=== PATIENT | female | born 1945 | race Caucasian/White ===

== ENCOUNTER → 2017-02-06 | Day surgery (SDC) | payer MEDICARE ==
[~2017-02-06] MED LIST: ALEN70TA5 PO; DONE5TAB7 PO; FEXO180T16 PO; FLUO20CA8 PO; IV RINGERS,LACTATED 1000ML 1,000 ML IV SCH; LIDOCAINE 2% PF Vial for OR 5 ML VIAL. ONE; OLAN10TA9 PO; OMEP20TA8 PO; OXYB10TA PO; PROPOFOL 20 ML IV ONE; SIMV20TA3 PO
[2017-02-06 17:37] VITALS: BP 150/79
--- NOTE | 2017-02-07 08:38 | HP ---
ADMIT DATE: 02/06/2017 Updated history and physical REFERRING PHYSICIAN: Dr. Mani Funk. HISTORY OF PRESENT ILLNESS: A 71-year-old female whose past medical history is significant for duodenal polyps, nephrolithiasis, gastric reflux disease, previous tonsillectomy, adenoidectomy, is seen with worsening abdominal pain. The patient states she has undergone a number of testing without significant improvement with medical therapy. She presently takes donepezil 2.5 mg daily. She has been on medicines like Nexium without improvement. Denies dysphagia or odynophagia. The patient has lost approximately 30 pounds ____ activity, decreased bowel movements and increased discomfort. With continued symptoms, she requests additional evaluation. PAST MEDICAL HISTORY: Nephrolithiasis, gastroesophageal reflux disease, status post tonsillectomy, history of hyperlipidemia, osteoporosis. PAST SURGICAL HISTORY: Per records. REVIEW OF SYSTEMS: Per records. FAMILY AND SOCIAL HISTORY: She does not drink or smoke at this time. FAMILY HISTORY: Noncontributory. PHYSICAL EXAMINATION: GENERAL: Reveals a well-nourished, well-developed female who is alert, cooperative, in no acute distress. VITAL SIGNS: Pulse 70, respirations 18. HEENT: Reveals normocephalic, atraumatic head. Pupils and extraocular movements are not tested. Sclerae anicteric. NECK: Supple. LUNGS: Clear. CARDIOVASCULAR: Reveals an S1, S2 without S3, S4 or appreciable murmur. ABDOMEN: Soft abdomen, normal bowel sounds, without appreciable hepatosplenomegaly. EXTREMITIES: Reveals no cyanosis, clubbing or edema. IMPRESSION: Abdominal pain with history of duodenal ____, the etiology is to be determined. Differential includes gallbladder disease, gastroparesis, peptic ulcer disease, malignancy, mesenteric ischemia, partial small-bowel obstruction; therefore, recommend the patient proceed with upper endoscopy to further assess this unrevealing. A CT scan of the abdomen and pelvis would be pursued. I thank Dr. Mani Funk for allowing us to consult and participate in this patient's care. HAILEY BARNARD MD DR: LYNDA/cuong JOB#: [id number] / [id number]
== END | disposition home or self-care (01) ==
LOC: ENDOS 16:28
PROVIDERS: ATTEND Internal Medicine Gastroenterology
DX: K29.50 Unspecified chronic gastritis without bleeding (principal); Z86.69 Personal history of other diseases of the nervous system and sense organs; Z86.73 Personal history of transient ischemic attack (TIA), and cerebral infarction without residual deficits; E78.00 Pure hypercholesterolemia, unspecified; I10 Essential (primary) hypertension; K21.9 Gastro-esophageal reflux disease without esophagitis; M19.90 Unspecified osteoarthritis, unspecified site; F41.9 Anxiety disorder, unspecified; F32.9 Major depressive disorder, single episode, unspecified; Z87.39 Personal history of other diseases of the musculoskeletal system and connective tissue; Z86.39 Personal history of other endocrine, nutritional and metabolic disease
CPT/HCPCS: 43235; J2704

== ENCOUNTER 2018-06-19 14:53 | Inpatient (IN) | payer MEDICARE ==
[~2018-06-19] VITALS: Ht 167.6 cm; Wt 50.8 kg
[~2018-06-19 14:53] MED LIST changes: -IV RINGERS,LACTATED 1000ML 1,000 ML IV SCH; -LIDOCAINE 2% PF Vial for OR 5 ML VIAL. ONE; -PROPOFOL 20 ML IV ONE
[2018-06-19 18:00] VITALS: BP 115/60
[2018-06-19] MEDS ORDERED: ONDANSETRON PF 4 MG/2 ML VIAL. IV PRN (18:15)
[2018-06-19] MEDS ORDERED: 0.9 % SODIUM CHLORIDE 10 ML DISP.SYRIN. IV PRN (18:15)
[2018-06-19] MEDS ORDERED: ALPRAZolam 0.25 MG TABLET PO ONE (18:30)
[2018-06-19] MEDS ORDERED: HEPARIN for IV BOLUS 10,000 UNIT/10 ML VIAL. IV ONE ×2 (18:30)
[2018-06-19] MEDS ORDERED: ONDANSETRON ODT 4 MG TAB.RAPDIS. PO PRN (18:30)
[2018-06-19] MEDS ORDERED: ACETAMINOPHEN 500 MG TABLET PO PRN (18:30)
[2018-06-19] MEDS ORDERED: guaiFENesin DM 200MG/20MG 10 ML SYRUP PO PRN (18:30)
[2018-06-19] MEDS ORDERED: hydrOXYzine 10 MG TABLET PO PRN (18:30)
[2018-06-19] MEDS ORDERED: HEPARIN for IV BOLUS 10,000 UNIT/10 ML VIAL. IV PRN ×4 (18:30)
[2018-06-19] MEDS ORDERED: HEPARIN 25,000UTS/500ML PREMIX 500 ML IV PRN (18:30)
[2018-06-19 18:33] LABS: BASO % 0 % (0-3); EOS % 0 % (0-3); HEMATOCRIT 35.7 % (36.0-47.0); HEMOGLOBIN 12.2 g/dL (12.0-15.5); LYMPH # 0.5 x10^3/uL (1.0-4.8); LYMPH % 4 % (24-48); MEAN CORPUSCULAR HEMOGLOBIN 31 pg (25-35); MEAN CORPUSCULAR HGB CONC 34 g/dL (31-37); MEAN CORPUSCULAR VOLUME 90 fL (79-100); MONO # 0.6 x10^3/uL (0.0-1.1); MONO % 4 % (0-9); NEUT # 13.6 x10^3uL (1.8-7.7); NEUT % 92 % (31-73); PLATELET COUNT 202 x10^3/uL (140-400); RED BLOOD COUNT 3.99 x10^6/uL (3.50-5.40); RED CELL DISTRIBUTION WIDTH 13.5 % (11.5-14.5); WHITE BLOOD COUNT 14.7 x10^3/uL (4.0-11.0)
--- NOTE | 2018-06-19 18:35 | PDOC1 ---
History and Physical Date of Admission Date of Admission DATE: 06/19/18 TIME: 18:26 Identification/Chief Complaint Chief Complaint SOA today Source Source: Caregiver, Chart review History of Present Illness History of Present Illness Very poor historian as patient is currently tachypneic, Dtr. is a very good historian and provides me with history along with ER [place]. Patient's transfer from [place], 72-year-old female only takes 3 medications at home namely Aricept, hydroxyzine, sertraline, and [id number] multivitamins, acute onset SOA today could not breathe to the point that she cannot speak. Daughter then relays to me maybe a fall today - she twisted her rt ankle and is now painful, swollen. Has not gotten out or had to be helped up since then. Went to the emergency room [facility]. Lactate 2.9, WBC 15, ABG shows respiratory alkalosis with a pH 7.54, CO2 24 and O2 93. Tachypneic. PE protocol CT done showed a saddle PE. D-dimer was elevated 30. Transferred here. Did not receive a bolus heparin drip and started on PE protocol heparin. Seen with family at bedside. Still tachypneic but able to maintain airway. Family verifies a full code. Will add venous Dopplers, bolus heparin, check fecal occult, echocardiogram. I also did order an ankle x-ray - see if any fxs/ which might have precipitated all of these. SHe denies history of previous blood clots, no family history of clots. No previous surgeries or long trip rides. She is ambulatory at home, no assistive device. Not as active as she was 5 years ago but basically not bedbound. No recent surgeries. Her longest car ride maybe would be 30 minutes long Past Medical History CENTRAL NERVOUS SYSTEM: Dementia Psych: Depression Past Surgical History Past Surgical History: No pertinent history Family History Family History: No Significant Social History Smoke: No ALCOHOL: none Drugs: None Current Medications Current Medications Current Medications Ondansetron HCl (Zofran) 4 mg PRN Q6HRS PRN IV NAUSEA/VOMITING; Start at 18:15 Sodium Chloride (Normal Saline Flush) 3 ml QSHIFT PRN IV AFTER MEDS AND BLOOD DRAWS; Start 06/19/18 at 18:15 Active Scripts Active Reported Donepezil Hcl 5 Mg Tablet 2.5 Mg PO DAILY Allergies Allergies: Coded Allergies: No Known Drug Allergies (Unverified , 02/06/17) ROS Review of System limited as she is tachypneic but right ankle hurts Physical Exam General: Alert, Cooperative, mild distress, Other (tachypneic-breathing via mouth) HEENT: Atraumatic, PERRLA Lungs: Normal air movement, Other (symmettrical chest expansion, no crackles, equal air entry) Heart: S1S2, no thrills, no rubs, no gallops, no murmurs, other (sinus tachycardia) Breasts: Normal, Rt breast nml w/o mass, Lt breast nml w/o mass, Nipples normal Abdomen: Normal bowel sounds, Soft, No tenderness, No hepatosplenomegaly, No masses Rectal Exam: not examined PELVIC: Nml ext genitalia Extremities: No clubbing, No cyanosis, Normal pulses, Other (swelling and tenderness on the right lateral malleoli, no Homans sign in the calves, bilateral) Skin: No rashes, No breakdown, No significant lesion Neuro: Normal gait, Normal speech, Strength at 5/5 X4 ext, Normal tone, Sensation intact, Cranial nerves 3-12 NL, Reflexes 2+ Psych/Mental Status: Mental status NL, Mood NL VTE Prophylaxis Ordered VTE Prophylaxis Devices: Yes VTE Pharmacological Prophylaxi: Yes Assessment/Plan Assessment/Plan Saddle PE-acute onset, first episode Fall today at home Right lateral malleolus/ankle swelling and pain secondary to fall Elevated lactate Leukocytosis-SIRS with no organ dysfunction Respiratory alkalosis Hypoxic respiratory failure secondary to above above-protecting airway Elderly/Geriatric Dementia on Aricept Elevated Troponin and the background of saddle PE-troponin 0.8 Full code PLAN: ICU bed Bolus heparin then gtt I did order hypercoag panel since unprovoked FOBT check Pulmo consult DuoNeb's Recheck labs tomorrow especially lactate, trop etc - make sure not trending up Check echo Ultrasound venous Dopplers legs Check ankle x-ray for any fractures given the fall PT OT when more respiratory stable DuoNeb's, other supportive meds Full code verified with fam Ok to cont home meds (3 only) Ok for low dose xanax I would just do GI soft diet for now Seen in ICU Dw health promotion officer and indy, CC 31 WILLIAM PEREZ MD Jun 19, 2018 18:35
[2018-06-19 18:55] LABS: CALCIUM 9.2 mg/dL (8.5-10.1); CREATININE 0.9 mg/dL (0.6-1.0); GFR 61.2; MAGNESIUM 2.1 mg/dL (1.8-2.4); POTASSIUM 3.8 mmol/L (3.5-5.1)
[2018-06-19 19:00] VITALS: BP 148/87
[2018-06-19 19:06] LABS: % BANDS 3 % (0-9); % LYMPHS 4 % (24-48); % MONOS 4 % (0-10); % SEGS 89 % (35-66); PLT ESTIMATE ADEQUATE (ADEQUATE); TOXIC GRANULATION SLIGHT; TOXIC VACUOLATION SLIGHT
[2018-06-19 20:00] VITALS: BP 136/68
[2018-06-19] MEDS: IPRATRPIUM/ALBUTEROL 0.5/2.5MG 3 ML NEBU. NEB SCH (20:20)
[2018-06-19] MEDS: DONEPEZIL HCL 5 MG TABLET. PO SCH (20:35)
[2018-06-19 21:00] VITALS: BP 140/84
[2018-06-19] MEDS ORDERED: SERTRALINE 50 MG TABLET. PO SCH (21:00)
[2018-06-19 22:00] VITALS: BP 140/87
[2018-06-19] MEDS: IV NORMAL SALINE 1000ML BAG 1,000 ML IV SCH (22:36)
[2018-06-19 23:00] VITALS: BP 126/83
[2018-06-19 23:17] LABS: BILIRUBIN,URINE NEGATIVE (NEG); CLARITY,URINE CLEAR; COLOR,URINE YELLOW; NITRITE,URINE NEGATIVE (NEG); PH,URINE 6.5; PROTEIN,URINE NEGATIVE (NEG-TRACE); UROBILINOGEN,URINE 0.2 mg/dL (0.2 mg/dL)
--- NOTE | 2018-06-19 23:20 | RAD ---
Ultrasound venous Doppler INDICATION:soa, pe, recent fall< TECHNIQUE: Grayscale, color Doppler and spectral waveform ultrasound images of the bilateral lower extremities deep veins obtained. COMPARISON: None FINDINGS: The right CFV, SFV are compressible and demonstrates evidence of blood flow. Hypoechoic filling defect is seen in the right popliteal vein which is distended without evidence of blood flow. There is a 6.5 x 3.5 x 1.4 similar hypoechoic oval-shaped lesion in the popliteal fossa without internal vascularity most likely a Ruano's cyst. The right calf veins are not properly visualized. The left CFV, SFV, popliteal vein are compressible and demonstrates evidence of blood flow. The calf veins demonstrate no evidence of blood flow with hypoechoic filling defect. IMPRESSION: 1. Right popliteal vein DVT and left calf vein DVT. Critical findings were identified on 06/19/2018 10:15 PM, read back and verified with Nurse Sherman on 06/19/2018 11:[address] Aden Gutierres DO. Electronically signed by: Aden Gutierres DO (06/19/2018 11:18 PM) [facility]
[2018-06-19 23:25] LABS: SQUAMOUS EPITHELIAL CELL,UR MOD /LPF
[2018-06-19 23:26] LABS: BACTERIA,URINE 0 /HPF (0-FEW); RBC,URINE >40 /HPF (0-2); WBC,URINE OCC /HPF (0-4)
[2018-06-19] MEDS ORDERED: HYDR10SY16 PO (23:58)
[2018-06-20] VITALS (25 sets, daily range): BP systolic 99–148; BP diastolic 58–82
[2018-06-20 00:57] LABS: CALCIUM 9.1 mg/dL (8.5-10.1); CREATININE 0.9 mg/dL (0.6-1.0); GFR 61.2; POTASSIUM 3.7 mmol/L (3.5-5.1)
[2018-06-20 01:08] LABS: BASO % 0 % (0-3); EOS % 0 % (0-3); HEMATOCRIT 32.7 % (36.0-47.0); HEMOGLOBIN 11.2 g/dL (12.0-15.5); LYMPH # 0.8 x10^3/uL (1.0-4.8); LYMPH % 6 % (24-48); MEAN CORPUSCULAR HEMOGLOBIN 31 pg (25-35); MEAN CORPUSCULAR HGB CONC 34 g/dL (31-37); MEAN CORPUSCULAR VOLUME 89 fL (79-100); MONO # 0.8 x10^3/uL (0.0-1.1); MONO % 6 % (0-9); NEUT % 87 % (31-73); PLATELET COUNT 182 x10^3/uL (140-400); RED BLOOD COUNT 3.66 x10^6/uL (3.50-5.40); RED CELL DISTRIBUTION WIDTH 13.5 % (11.5-14.5); WHITE BLOOD COUNT 12.7 x10^3/uL (4.0-11.0)
[2018-06-20] MEDS: IPRATRPIUM/ALBUTEROL 0.5/2.5MG 3 ML NEBU. NEB SCH ×4 (07:48→19:58)
--- NOTE | 2018-06-20 08:17 | RAD ---
Left ankle, 3 views, 06/19/2018: HISTORY: Fall, pain No fracture or dislocation is identified. Arterial calcifications are present. No significant soft tissue swelling is evident. IMPRESSION: No acute bony abnormality is detected. Electronically signed by: Kevin Garrido MD (06/20/2018 8:14 AM) [facility]
[2018-06-20] MEDS ORDERED: SERT100T PO (08:53)
[2018-06-20] MEDS ORDERED: SERT50TA PO (08:53)
[2018-06-20] MEDS ORDERED: DONE23TA3 PO (08:53)
[2018-06-20] MEDS ORDERED: MULT1TAB6 PO (08:53)
[2018-06-20] MEDS ORDERED: HYDR10SY16 PO (08:53)
[2018-06-20] MEDS: MULTIVITAMIN with MINERAL TABLET. PO SCH (09:00)
[2018-06-20] MEDS: ANTI-COAG MONITOR BY PHARMACY. MC PRN (09:15)
[2018-06-20] MEDS: IV NORMAL SALINE 1000ML BAG 1,000 ML IV SCH ×2 (09:15→22:15)
--- NOTE | 2018-06-20 09:43 | PDOC2 ---
HYACINTH MCCORD SOFTWARE RELEASE MANAGER 06/20/18 0943: CARDIAC CONSULT DATE OF CONSULT Date of Consult DATE: 06/20/18 TIME: 09:18 REASON FOR CONSULT Reason for Consult: Elevated troponin PE REFERRING PHYSICIAN Referring Physician: Sergio SOURCE Source: Caregiver (daughter/spouse), Chart review, Patient HISTORY OF PRESENT ILLNESS HISTORY OF PRESENT ILLNESS This is a pleasant 72 yo female admitted for syncope and seizure. She was initially admitted in [place] and transferred to [facility] for further treatment as she was found to have PE. Baseline per daughter she has been moving around in the house without ambulatory device and has been doing well. No complains of CP or SOA. She has not any , hx of VTE, CAD. No recent falls or injury till yesterday. No recent long distance travel but she has been having loose stools particularly in the morning. Reported that she has been hydrating but could not ascertain amount. No recent vomiting till yesterday prior to the event. She only takes SSRI and med for her dementia. She fell yesterday but no injury and was noted that she became unresponsive and was gasping for air and noted with jaw clenching for about 30 sec. No hx of seizures in the past. she has not been complaing of any leg pain and no significant swelling. PAST MEDICAL HISTORY Cardiovascular: Hyperlipidemia, Other (?neurocardiogenic) CENTRAL NERVOUS SYSTEM: Dementia, TIA, Other (akinesia) GI: GERD Heme/Onc: Anemia NOS Psych: Anxiety, Depression Musculoskeletal: Osteoarthritis Renal/: Urinary Incontinence Endocrine: Osteoporosis PAST SURGICAL HISTORY Past Surgical History: Other (lower back and neck surgery) SOCIAL HISTORY Smoke: Quit (remote) ALCOHOL: none Drugs: None Lives: with Family CURRENT MEDICATIONS CURRENT MEDICATIONS Current Medications Medications (Trade) Dose Ordered Sig/Bin Route PRN Reason Start Time Stop Time Status Last Admin Dose Admin Albuterol/ Ipratropium (Duoneb) 3 ml RTQID NEB 06/19/18 20:00 06/20/18 07:48 Donepezil HCl (Aricept) 5 mg QHS PO 06/19/18 21:00 06/19/18 20:35 Sertraline HCl (Zoloft) 25 mg QHS PO 06/19/18 21:00 06/19/18 20:35 Alprazolam (Xanax) 0.25 mg 1X ONCE PO 06/19/18 18:30 06/19/18 18:34 DC 06/19/18 20:27 Heparin Sodium (Porcine) (Heparin Sodium) 4,160 unit 1X ONCE IV 06/19/18 18:30 06/19/18 18:34 DC 06/19/18 20:27 Sodium Chloride 1,000 ml @ 80 mls/hr [id number] IV 06/19/18 20:45 06/19/18 22:36 Info (Anti-Coagulation Monitoring By Pharmacy) 1 each PRN DAILY PRN MC SEE COMMENTS 06/20/18 09:00 06/20/18 09:15 ALLERGIES ALLERGIES: Coded Allergies: No Known Drug Allergies (Unverified , 02/06/17) ROS Review of System unreliable, dementia PHYSICAL EXAM General: Alert, Cooperative, No acute distress HEENT: Atraumatic, Mucous membr. moist/pink Lungs: Clear to auscultation, Other (diminished bases) Heart: Regular rate (SR without ectopies), Other (2/6 systolic murmur to LLS border) Abdomen: Soft, No tenderness Extremities: No cyanosis, No edema Skin: No breakdown, No significant lesion Neuro: Sensation intact Psych/Mental Status: Other (appears confuse) MUSCULOSKELETAL: Osteoarthritic changes both hands VITALS VITALS Vital Signs Date Time Temp Pulse Resp B/P (MAP) Pulse Ox O2 Delivery O2 Flow Rate FiO2 06/20/18 09:00 72 14 122/74 (90) 95 Nasal Cannula 2.0 06/20/18 08:00 98.5 98.5 LABS Lab: Laboratory Tests Test 06/19/18 18:30 06/19/18 22:20 06/19/18 23:00 06/20/18 00:15 White Blood Count 14.7 x10^3/uL (4.0-11.0) 12.7 x10^3/uL (4.0-11.0) Red Blood Count 3.99 x10^6/uL (3.50-5.40) 3.66 x10^6/uL (3.50-5.40) Hemoglobin 12.2 g/dL (12.0-15.5) 11.2 g/dL (12.0-15.5) Hematocrit 35.7 % (36.0-47.0) 32.7 % (36.0-47.0) Mean Corpuscular Volume 90 fL (79-100) 89 fL (79-100) Mean Corpuscular Hemoglobin 31 pg (25-35) 31 pg (25-35) Mean Corpuscular Hemoglobin Concent 34 g/dL (31-37) 34 g/dL (31-37) Red Cell Distribution Width 13.5 % (11.5-14.5) 13.5 % (11.5-14.5) Platelet Count 202 x10^3/uL (140-400) 182 x10^3/uL (140-400) Neutrophils (%) (Auto) 92 % (31-73) 87 % (31-73) Lymphocytes (%) (Auto) 4 % (24-48) 6 % (24-48) Monocytes (%) (Auto) 4 % (0-9) 6 % (0-9) Eosinophils (%) (Auto) 0 % (0-3) 0 % (0-3) Basophils (%) (Auto) 0 % (0-3) 0 % (0-3) Neutrophils # (Auto) 13.6 x10^3uL (1.8-7.7) 11.0 x10^3uL (1.8-7.7) Lymphocytes # (Auto) 0.5 x10^3/uL (1.0-4.8) 0.8 x10^3/uL (1.0-4.8) Monocytes # (Auto) 0.6 x10^3/uL (0.0-1.1) 0.8 x10^3/uL (0.0-1.1) Eosinophils # (Auto) 0.0 x10^3/uL (0.0-0.7) 0.0 x10^3/uL (0.0-0.7) Basophils # (Auto) 0.0 x10^3/uL (0.0-0.2) 0.0 x10^3/uL (0.0-0.2) Segmented Neutrophils % 89 % (35-66) Band Neutrophils % 3 % (0-9) Lymphocytes % 4 % (24-48) Monocytes % 4 % (0-10) Toxic Granulation Slight Toxic Vacuolation Slight Platelet Estimate Adequate (ADEQUATE) Sodium Level 145 mmol/L (136-145) 145 mmol/L (136-145) Potassium Level 3.8 mmol/L (3.5-5.1) 3.7 mmol/L (3.5-5.1) Chloride Level 108 mmol/L (98-107) 109 mmol/L (98-107) Carbon Dioxide Level 26 mmol/L (21-32) 28 mmol/L (21-32) Anion Gap 11 (6-14) 8 (6-14) Blood Urea Nitrogen 7 mg/dL (7-20) 6 mg/dL (7-20) Creatinine 0.9 mg/dL (0.6-1.0) 0.9 mg/dL (0.6-1.0) Estimated GFR (Cockcroft-Gault) 61.2 61.2 Glucose Level 127 mg/dL (70-99) 130 mg/dL (70-99) Lactic Acid Level 2.8 mmol/L (0.4-2.0) 1.4 mmol/L (0.4-2.0) Calcium Level 9.2 mg/dL (8.5-10.1) 9.1 mg/dL (8.5-10.1) Magnesium Level 2.1 mg/dL (1.8-2.4) Troponin I Quantitative 7.642 ng/mL (0.000-0.055) Urine Collection Type Unknown Urine Color Yellow Urine Clarity Clear Urine pH 6.5 Urine Specific [place] >=1.030 Urine Protein Negative mg/dL (NEG-TRACE) Urine Glucose (UA) Negative mg/dL (NEG) Urine Ketones (Stick) Negative mg/dL (NEG) Urine Blood Moderate (NEG) Urine Nitrite Negative (NEG) Urine Bilirubin Negative (NEG) Urine Urobilinogen Dipstick 0.2 mg/dL (0.2 mg/dL) Urine Leukocyte Esterase Negative (NEG) Urine RBC >40 /HPF (0-2) Urine WBC Occ /HPF (0-4) Urine Squamous Epithelial Cells Mod /LPF Urine Bacteria 0 /HPF (0-FEW) Urine Mucus Mod /LPF Heparin Anti-Xa Act, Unfractionated > 1.10 IU/mL (0.30-0.70) Test 06/20/18 06:15 Heparin Anti-Xa Act, Unfractionated 0.43 IU/mL (0.30-0.70) ASSESSMENT/PLAN ASSESSMENT/PLAN 1. Saddle PE with RLE DVT 2. Syncope/suspected seizure/acute respiratory failure due to above and cerebral hypoperfusion 3. Lactic acidosis: due to above 4. NSTEMI: troponin 7.6, initial EKG with SR with nonspecific ST-T wave changes and possibly S1Q3T3. Suspect type 2 demand mediated 5. HLP 6. Hx of TIA 7. Dementia Recommendations 1. Heparin drip in place. Defer therapy to pulmonary. 2. VSS and rhythm stable. Will repeat EKG. Plaque rupture is certainly a possibility with significant cardiac strain r/t #1,2. Start on ASA. lipids and will start on statin as well 3. Moving forward she may need an IVC filter. recheck troponin. TTE. Repeat EKG. Discussed with family. CHICHO MORALES MD 06/20/18 1200: CARDIAC CONSULT ASSESSMENT/PLAN ASSESSMENT/PLAN Pt. seen and examined. AGree with above SENIOR USER EXPERIENCE ARCHITECT note. Saddle PE with NSTEMI - likely type 2 but given such large NSTEMI, cannot rule out underlying CAD Poor fpc prognosis Continue anticoagulation. Defer IVC filter to pulmonary. May need transfer to OSH if she does not respond to anticoagulation for thrombectomy/PERT team evaluation. HYACINTH MCCORD APRN Jun 20, 2018 09:43 CHICHO MORALES MD Jun 20, 2018 12:00
--- NOTE | 2018-06-20 10:58 | CARD ---
MR#: [id number] Date of Study: 06/20/2018 Ordering Physician: WILLIAM PEREZ, Referring Physician: WILLIAM PEREZ Tech: Tayler Jewell [facility] APPROVED REPORT EXAM: Two-dimensional and M-mode echocardiogram with Doppler and color Doppler. Other Information Quality : Good INDICATION Saddle Pulmonary Embolism 2D DIMENSIONS RVDd2.9 (2.9-3.5cm)Left Atrium(2D)3.1 (1.6-4.0cm) IVSd0.7 (0.7-1.1cm)Aortic Root(2D)2.8 (2.0-3.7cm) LVDd3.4 (3.9-5.9cm)LVOT Diameter1.8 (1.8-2.4cm) PWd0.9 (0.7-1.1cm)LVDs1.9 (2.5-4.0cm) FS (%) 30.0 %SV35.6 ml LVEF(%)60.0 (>50%) Aortic Valve AoV Peak Abdifatah.128.7cm/sAoV VTI22.5cm AO Peak GR.6.6mmHgLVOT VTI 22.89cm AO Mean GR.4mmHgAVA (VTI)2.67cm2 Mitral Valve MV E Kpgnzmei97.2cm/sMV DECEL HUCO692so MV A Fvebquqq635.3cm/sE/A Ratio0.7 TDI Lateral E' P. V7.14cm/sMedial E' P. V5.41cm/s E/Lateral E'10.3E/Medial E'13.5 Tricuspid Valve TR P. Jemhtlke894vq/sRAP [id number] TR Peak Gr.49vzUlXHDP96sfMr LEFT VENTRICLE The left ventricle is normal size. There is normal left ventricular wall thickness. The left ventricu lar systolic function is normal. The Ejection Fraction is 60-65%. There is normal LV segmental wall m otion. Transmitral Doppler flow pattern is Grade I-abnormal relaxation pattern. RIGHT VENTRICLE The right ventricle is normal size. The right ventricular systolic function is normal. ATRIA The left atrium size is normal. The right atrium size is normal. The interatrial septum is intact wit h no evidence for an atrial septal defect or patent foramen ovale as noted on 2-D or Doppler imaging. AORTIC VALVE The aortic valve is calcified but opens well. Doppler and Color Flow revealed no significant aortic r egurgitation. There is no significant aortic valvular stenosis. MITRAL VALVE The mitral valve is calcified but opens well. There is no evidence of mitral valve prolapse. There is no mitral valve stenosis. Doppler and Color Flow revealed no mitral valve regurgitation noted. TRICUSPID VALVE The tricuspid valve is normal in structure and function. Doppler and Color Flow revealed mild tricusp id regurgitation. The PA pressure was estimated at 24 mmHg. There is no tricuspid valve stenosis. PULMONIC VALVE The pulmonic valve is not well visualized. Doppler and Color Flow revealed trace pulmonic valvular re gurgitation. There is no pulmonic valvular stenosis. GREAT VESSELS The aortic root is normal in size. The ascending aorta is normal in size. The IVC is normal in size a nd collapses >50% with inspiration. PERICARDIAL EFFUSION There is no evidence of significant pericardial effusion. Critical Notification Critical Value: No <Conclusion> The left ventricular systolic function is normal. The Ejection Fraction is 60-65%. There is normal LV segmental wall motion. Transmitral Doppler flow pattern is Grade I-abnormal relaxation pattern. Mild tricuspid regurgitation. The PA pressure was estimated at 24 mmHg. There is no evidence of significant pericardial effusion. Signed by : Louie Fisher, Electronically Approved : 06/20/2018 10:58:02
--- NOTE | 2018-06-20 11:01 | EKG ---
[facility] [address] [place] [address] Test Date: 2018-06-20 Test Time: 10:55:04 Pat Name: BRANDEE HORN Department: Room: 110 1 Gender: F Psych Assistant: RONNI : [id number] Requested By: HYACINTH MCCORD Order Number: [id number] Reading MD: Boris Yates MD Measurements Intervals [place] Rate: 64 P: 66 NE: 164 QRS: 18 QRSD: 60 T: -32 QT: 436 QTc: 454 Interpretive Statements SINUS RHYTHM NON-SPECIFIC ST/T CHANGES Electronically Signed On 06-20-2018 11:24:13 CDT by Boris Yates MD
[2018-06-20] MEDS: LORazepam 0.5 MG TABLET PO PRN ×2 (11:24→20:04)
[2018-06-20] MEDS ORDERED: hydrOXYzine 10 MG TABLET PO PRN (11:45)
[2018-06-20] MEDS: ASPIRIN ENTERIC COATED 81 MG TABLET.DR. PO SCH (12:00)
[2018-06-20] MEDS: hydrOXYzine 10 MG TABLET PO SCH (12:00)
[2018-06-20] MEDS: DONEPEZIL HCL 10 MG TABLET. PO SCH ×2 (12:00→20:36)
[2018-06-20] MEDS: ONDANSETRON PF 4 MG/2 ML VIAL. IV PRN (12:09)
--- NOTE | 2018-06-20 12:17 | PDOC ---
PROGRESS NOTES Chief Complaint Chief Complaint Saddle PE-acute onset, first episode H/o Fall Hypoxic respiratory failure secondary to above above Elevated Troponin in the background of saddle PE H/o dementia History of Present Illness History of Present Illness Pt seen and examined in ICU Pt was laying in bed with at bedside. DONTE RN Vitals Vitals Vital Signs Date Time Temp Pulse Resp B/P (MAP) Pulse Ox O2 Delivery O2 Flow Rate FiO2 06/20/18 11:17 98 Nasal Cannula 2.0 06/20/18 11:00 78 30 124/81 (95) 06/20/18 08:00 98.5 98.5 Physical Exam General: Alert, Cooperative, No acute distress Heart: Regular rate (SR without ectopies), Other (2/6 systolic murmur to LLS border) Abdomen: Soft, No tenderness Extremities: No cyanosis, No edema Skin: No breakdown, No significant lesion Labs LABS Laboratory Tests Test 06/19/18 18:30 06/19/18 22:20 06/19/18 23:00 06/20/18 00:15 White Blood Count 14.7 x10^3/uL (4.0-11.0) 12.7 x10^3/uL (4.0-11.0) Red Blood Count 3.99 x10^6/uL (3.50-5.40) 3.66 x10^6/uL (3.50-5.40) Hemoglobin 12.2 g/dL (12.0-15.5) 11.2 g/dL (12.0-15.5) Hematocrit 35.7 % (36.0-47.0) 32.7 % (36.0-47.0) Mean Corpuscular Volume 90 fL (79-100) 89 fL (79-100) Mean Corpuscular Hemoglobin 31 pg (25-35) 31 pg (25-35) Mean Corpuscular Hemoglobin Concent 34 g/dL (31-37) 34 g/dL (31-37) Red Cell Distribution Width 13.5 % (11.5-14.5) 13.5 % (11.5-14.5) Platelet Count 202 x10^3/uL (140-400) 182 x10^3/uL (140-400) Neutrophils (%) (Auto) 92 % (31-73) 87 % (31-73) Lymphocytes (%) (Auto) 4 % (24-48) 6 % (24-48) Monocytes (%) (Auto) 4 % (0-9) 6 % (0-9) Eosinophils (%) (Auto) 0 % (0-3) 0 % (0-3) Basophils (%) (Auto) 0 % (0-3) 0 % (0-3) Neutrophils # (Auto) 13.6 x10^3uL (1.8-7.7) 11.0 x10^3uL (1.8-7.7) Lymphocytes # (Auto) 0.5 x10^3/uL (1.0-4.8) 0.8 x10^3/uL (1.0-4.8) Monocytes # (Auto) 0.6 x10^3/uL (0.0-1.1) 0.8 x10^3/uL (0.0-1.1) Eosinophils # (Auto) 0.0 x10^3/uL (0.0-0.7) 0.0 x10^3/uL (0.0-0.7) Basophils # (Auto) 0.0 x10^3/uL (0.0-0.2) 0.0 x10^3/uL (0.0-0.2) Segmented Neutrophils % 89 % (35-66) Band Neutrophils % 3 % (0-9) Lymphocytes % 4 % (24-48) Monocytes % 4 % (0-10) Toxic Granulation Slight Toxic Vacuolation Slight Platelet Estimate Adequate (ADEQUATE) Sodium Level 145 mmol/L (136-145) 145 mmol/L (136-145) Potassium Level 3.8 mmol/L (3.5-5.1) 3.7 mmol/L (3.5-5.1) Chloride Level 108 mmol/L (98-107) 109 mmol/L (98-107) Carbon Dioxide Level 26 mmol/L (21-32) 28 mmol/L (21-32) Anion Gap 11 (6-14) 8 (6-14) Blood Urea Nitrogen 7 mg/dL (7-20) 6 mg/dL (7-20) Creatinine 0.9 mg/dL (0.6-1.0) 0.9 mg/dL (0.6-1.0) Estimated GFR (Cockcroft-Gault) 61.2 61.2 Glucose Level 127 mg/dL (70-99) 130 mg/dL (70-99) Lactic Acid Level 2.8 mmol/L (0.4-2.0) 1.4 mmol/L (0.4-2.0) Calcium Level 9.2 mg/dL (8.5-10.1) 9.1 mg/dL (8.5-10.1) Magnesium Level 2.1 mg/dL (1.8-2.4) Troponin I Quantitative 7.642 ng/mL (0.000-0.055) Urine Collection Type Unknown Urine Color Yellow Urine Clarity Clear Urine pH 6.5 Urine Specific [place] >=1.030 Urine Protein Negative mg/dL (NEG-TRACE) Urine Glucose (UA) Negative mg/dL (NEG) Urine Ketones (Stick) Negative mg/dL (NEG) Urine Blood Moderate (NEG) Urine Nitrite Negative (NEG) Urine Bilirubin Negative (NEG) Urine Urobilinogen Dipstick 0.2 mg/dL (0.2 mg/dL) Urine Leukocyte Esterase Negative (NEG) Urine RBC >40 /HPF (0-2) Urine WBC Occ /HPF (0-4) Urine Squamous Epithelial Cells Mod /LPF Urine Bacteria 0 /HPF (0-FEW) Urine Mucus Mod /LPF Heparin Anti-Xa Act, Unfractionated > 1.10 IU/mL (0.30-0.70) Test 06/20/18 06:15 Heparin Anti-Xa Act, Unfractionated 0.43 IU/mL (0.30-0.70) Troponin I Quantitative 5.185 ng/mL (0.000-0.055) Triglycerides Level 116 mg/dL (0-150) Cholesterol Level 218 mg/dL (0-200) LDL Cholesterol, Calculated 141 mg/dL (0-100) VLDL Cholesterol, Calculated 23 mg/dL (0-40) Non-HDL Cholesterol Calculated 164 mg/dL (0-129) HDL Cholesterol 54 mg/dL (40-60) Cholesterol/HDL Ratio 4.0 Assessment and Plan Assessmemt and Plan Assessment: Saddle PE-acute onset, first episode H/o Fall Hypoxic respiratory failure secondary to above above Elevated Troponin in the background of saddle PE H/o dementia Plan: ICU monitoring Await pulm input Cont heparin drip Monitor labs Home meds Comment Review of Relevant I have reviewed the following items gal (where applicable) has been applied. Labs Laboratory Tests Test 06/19/18 18:30 06/19/18 22:20 06/19/18 23:00 06/20/18 00:15 White Blood Count 14.7 x10^3/uL (4.0-11.0) 12.7 x10^3/uL (4.0-11.0) Red Blood Count 3.99 x10^6/uL (3.50-5.40) 3.66 x10^6/uL (3.50-5.40) Hemoglobin 12.2 g/dL (12.0-15.5) 11.2 g/dL (12.0-15.5) Hematocrit 35.7 % (36.0-47.0) 32.7 % (36.0-47.0) Mean Corpuscular Volume 90 fL (79-100) 89 fL (79-100) Mean Corpuscular Hemoglobin 31 pg (25-35) 31 pg (25-35) Mean Corpuscular Hemoglobin Concent 34 g/dL (31-37) 34 g/dL (31-37) Red Cell Distribution Width 13.5 % (11.5-14.5) 13.5 % (11.5-14.5) Platelet Count 202 x10^3/uL (140-400) 182 x10^3/uL (140-400) Neutrophils (%) (Auto) 92 % (31-73) 87 % (31-73) Lymphocytes (%) (Auto) 4 % (24-48) 6 % (24-48) Monocytes (%) (Auto) 4 % (0-9) 6 % (0-9) Eosinophils (%) (Auto) 0 % (0-3) 0 % (0-3) Basophils (%) (Auto) 0 % (0-3) 0 % (0-3) Neutrophils # (Auto) 13.6 x10^3uL (1.8-7.7) 11.0 x10^3uL (1.8-7.7) Lymphocytes # (Auto) 0.5 x10^3/uL (1.0-4.8) 0.8 x10^3/uL (1.0-4.8) Monocytes # (Auto) 0.6 x10^3/uL (0.0-1.1) 0.8 x10^3/uL (0.0-1.1) Eosinophils # (Auto) 0.0 x10^3/uL (0.0-0.7) 0.0 x10^3/uL (0.0-0.7) Basophils # (Auto) 0.0 x10^3/uL (0.0-0.2) 0.0 x10^3/uL (0.0-0.2) Segmented Neutrophils % 89 % (35-66) Band Neutrophils % 3 % (0-9) Lymphocytes % 4 % (24-48) Monocytes % 4 % (0-10) Toxic Granulation Slight Toxic Vacuolation Slight Platelet Estimate Adequate (ADEQUATE) Sodium Level 145 mmol/L (136-145) 145 mmol/L (136-145) Potassium Level 3.8 mmol/L (3.5-5.1) 3.7 mmol/L (3.5-5.1) Chloride Level 108 mmol/L (98-107) 109 mmol/L (98-107) Carbon Dioxide Level 26 mmol/L (21-32) 28 mmol/L (21-32) Anion Gap 11 (6-14) 8 (6-14) Blood Urea Nitrogen 7 mg/dL (7-20) 6 mg/dL (7-20) Creatinine 0.9 mg/dL (0.6-1.0) 0.9 mg/dL (0.6-1.0) Estimated GFR (Cockcroft-Gault) 61.2 61.2 Glucose Level 127 mg/dL (70-99) 130 mg/dL (70-99) Lactic Acid Level 2.8 mmol/L (0.4-2.0) 1.4 mmol/L (0.4-2.0) Calcium Level 9.2 mg/dL (8.5-10.1) 9.1 mg/dL (8.5-10.1) Magnesium Level 2.1 mg/dL (1.8-2.4) Troponin I Quantitative 7.642 ng/mL (0.000-0.055) Urine Collection Type Unknown Urine Color Yellow Urine Clarity Clear Urine pH 6.5 Urine Specific [place] >=1.030 Urine Protein Negative mg/dL (NEG-TRACE) Urine Glucose (UA) Negative mg/dL (NEG) Urine Ketones (Stick) Negative mg/dL (NEG) Urine Blood Moderate (NEG) Urine Nitrite Negative (NEG) Urine Bilirubin Negative (NEG) Urine Urobilinogen Dipstick 0.2 mg/dL (0.2 mg/dL) Urine Leukocyte Esterase Negative (NEG) Urine RBC >40 /HPF (0-2) Urine WBC Occ /HPF (0-4) Urine Squamous Epithelial Cells Mod /LPF Urine Bacteria 0 /HPF (0-FEW) Urine Mucus Mod /LPF Heparin Anti-Xa Act, Unfractionated > 1.10 IU/mL (0.30-0.70) Test 06/20/18 06:15 Heparin Anti-Xa Act, Unfractionated 0.43 IU/mL (0.30-0.70) Troponin I Quantitative 5.185 ng/mL (0.000-0.055) Triglycerides Level 116 mg/dL (0-150) Cholesterol Level 218 mg/dL (0-200) LDL Cholesterol, Calculated 141 mg/dL (0-100) VLDL Cholesterol, Calculated 23 mg/dL (0-40) Non-HDL Cholesterol Calculated 164 mg/dL (0-129) HDL Cholesterol 54 mg/dL (40-60) Cholesterol/HDL Ratio 4.0 Laboratory Tests Test 06/19/18 18:30 06/19/18 22:20 06/19/18 23:00 06/20/18 00:15 White Blood Count 14.7 x10^3/uL (4.0-11.0) 12.7 x10^3/uL (4.0-11.0) Red Blood Count 3.99 x10^6/uL (3.50-5.40) 3.66 x10^6/uL (3.50-5.40) Hemoglobin 12.2 g/dL (12.0-15.5) 11.2 g/dL (12.0-15.5) Hematocrit 35.7 % (36.0-47.0) 32.7 % (36.0-47.0) Mean Corpuscular Volume 90 fL (79-100) 89 fL (79-100) Mean Corpuscular Hemoglobin 31 pg (25-35) 31 pg (25-35) Mean Corpuscular Hemoglobin Concent 34 g/dL (31-37) 34 g/dL (31-37) Red Cell Distribution Width 13.5 % (11.5-14.5) 13.5 % (11.5-14.5) Platelet Count 202 x10^3/uL (140-400) 182 x10^3/uL (140-400) Neutrophils (%) (Auto) 92 % (31-73) 87 % (31-73) Lymphocytes (%) (Auto) 4 % (24-48) 6 % (24-48) Monocytes (%) (Auto) 4 % (0-9) 6 % (0-9) Eosinophils (%) (Auto) 0 % (0-3) 0 % (0-3) Basophils (%) (Auto) 0 % (0-3) 0 % (0-3) Neutrophils # (Auto) 13.6 x10^3uL (1.8-7.7) 11.0 x10^3uL (1.8-7.7) Lymphocytes # (Auto) 0.5 x10^3/uL (1.0-4.8) 0.8 x10^3/uL (1.0-4.8) Monocytes # (Auto) 0.6 x10^3/uL (0.0-1.1) 0.8 x10^3/uL (0.0-1.1) Eosinophils # (Auto) 0.0 x10^3/uL (0.0-0.7) 0.0 x10^3/uL (0.0-0.7) Basophils # (Auto) 0.0 x10^3/uL (0.0-0.2) 0.0 x10^3/uL (0.0-0.2) Segmented Neutrophils % 89 % (35-66) Band Neutrophils % 3 % (0-9) Lymphocytes % 4 % (24-48) Monocytes % 4 % (0-10) Toxic Granulation Slight Toxic Vacuolation Slight Platelet Estimate Adequate (ADEQUATE) Sodium Level 145 mmol/L (136-145) 145 mmol/L (136-145) Potassium Level 3.8 mmol/L (3.5-5.1) 3.7 mmol/L (3.5-5.1) Chloride Level 108 mmol/L (98-107) 109 mmol/L (98-107) Carbon Dioxide Level 26 mmol/L (21-32) 28 mmol/L (21-32) Anion Gap 11 (6-14) 8 (6-14) Blood Urea Nitrogen 7 mg/dL (7-20) 6 mg/dL (7-20) Creatinine 0.9 mg/dL (0.6-1.0) 0.9 mg/dL (0.6-1.0) Estimated GFR (Cockcroft-Gault) 61.2 61.2 Glucose Level 127 mg/dL (70-99) 130 mg/dL (70-99) Lactic Acid Level 2.8 mmol/L (0.4-2.0) 1.4 mmol/L (0.4-2.0) Calcium Level 9.2 mg/dL (8.5-10.1) 9.1 mg/dL (8.5-10.1) Magnesium Level 2.1 mg/dL (1.8-2.4) Troponin I Quantitative 7.642 ng/mL (0.000-0.055) Urine Collection Type Unknown Urine Color Yellow Urine Clarity Clear Urine pH 6.5 Urine Specific [place] >=1.030 Urine Protein Negative mg/dL (NEG-TRACE) Urine Glucose (UA) Negative mg/dL (NEG) Urine Ketones (Stick) Negative mg/dL (NEG) Urine Blood Moderate (NEG) Urine Nitrite Negative (NEG) Urine Bilirubin Negative (NEG) Urine Urobilinogen Dipstick 0.2 mg/dL (0.2 mg/dL) Urine Leukocyte Esterase Negative (NEG) Urine RBC >40 /HPF (0-2) Urine WBC Occ /HPF (0-4) Urine Squamous Epithelial Cells Mod /LPF Urine Bacteria 0 /HPF (0-FEW) Urine Mucus Mod /LPF Heparin Anti-Xa Act, Unfractionated > 1.10 IU/mL (0.30-0.70) Test 06/20/18 06:15 Heparin Anti-Xa Act, Unfractionated 0.43 IU/mL (0.30-0.70) Troponin I Quantitative 5.185 ng/mL (0.000-0.055) Triglycerides Level 116 mg/dL (0-150) Cholesterol Level 218 mg/dL (0-200) LDL Cholesterol, Calculated 141 mg/dL (0-100) VLDL Cholesterol, Calculated 23 mg/dL (0-40) Non-HDL Cholesterol Calculated 164 mg/dL (0-129) HDL Cholesterol 54 mg/dL (40-60) Cholesterol/HDL Ratio 4.0 Medications Current Medications Ondansetron HCl (Zofran) 4 mg PRN Q6HRS PRN IV NAUSEA/VOMITING; Start at 18:15; Stop 06/19/18 at 19:01; Status DC Sodium Chloride (Normal Saline Flush) 3 ml QSHIFT PRN IV AFTER MEDS AND BLOOD DRAWS; Start 06/19/18 at 18:15 Albuterol/ Ipratropium (Duoneb) 3 ml RTQID NEB Last administered on 06/20/18at 07:48; Start 06/19/18 at 20:00 Guaifenesin (Robitussin Dm) 10 ml PRN Q6HRS PRN PO COUGH; Start 06/19/18 at 18 :30 Donepezil HCl (Aricept) 5 mg QHS PO Last administered on 06/19/18at 20:35; Start 06/19/18 at 21:00 Sertraline HCl (Zoloft) 25 mg QHS PO Last administered on 06/19/18at 20:35; Start 06/19/18 at 21:00; Stop 06/20/18 at 11:33; Status DC Alprazolam (Xanax) 0.25 mg PRN Q8HRS PRN PO ANXIETY / AGITATION; Start at 18:30 Alprazolam (Xanax) 0.25 mg 1X ONCE PO Last administered on 06/19/18at 20:27; Start 06/19/18 at 18:30; Stop 06/19/18 at 18:34; Status DC Hydroxyzine HCl (Atarax) 10 mg PRN Q6HRS PRN PO ITCHING; Start 06/19/18 at 18: 30 Multivitamins (Thera M Plus) 1 tab DAILY PO ; Start 06/20/18 at 09:00 Heparin Sodium (Porcine) (Heparin Sodium) 4,160 unit 1X ONCE IV Last administered on 06/19/18at 20:27; Start 06/19/18 at 18:30; Stop 06/19/18 at 18 :34; Status DC Heparin Sodium/ Dextrose 500 ml @ 16.64 mls/ hr CONT PRN IV SEE I/O RECORD; Start 06/19/18 at 18:30 Heparin Sodium (Porcine) (Heparin Sodium) 1,560 unit PRN Q6HRS PRN IV FOR UFH LEVEL LESS THAN 0.2; Start 06/19/18 at 18:30 Heparin Sodium (Porcine) (Heparin Sodium) 780 unit PRN Q6HRS PRN IV FOR UFH LEVEL 0.2 - 0.29; Start 06/19/18 at 18:30 Acetaminophen/ Hydrocodone Bitart (Lortab 5/325) 1 tab PRN Q4HRS PRN PO SEVERE PAIN; Start 06/19/18 at 18:30 Acetaminophen (Tylenol) 500 mg PRN Q6HRS PRN PO MILD PAIN / TEMP; Start at 18:30 Ondansetron HCl (Zofran) 4 mg PRN Q6HRS PRN IV NAUSEA/VOMITING Last administered on 06/20/18at 12:09; Start 06/19/18 at 18:30 Ondansetron HCl (Zofran Odt) 4 mg PRN Q6HRS PRN PO NAUSEA/VOMITING; Start at 18:30 Heparin Sodium (Porcine) (Heparin Sodium) 4,150 unit 1X ONCE IV ; Start at 18:30; Stop 06/19/18 at 18:31; Status UNV Heparin Sodium/ Dextrose 500 ml @ 0 mls/hr CONT PRN IV SEE I/O RECORD; Start 06/19/18 at 18:30; Status UNV Heparin Sodium (Porcine) (Heparin Sodium) 1,550 unit PRN Q6HRS PRN IV FOR UFH LEVEL LESS THAN 0.2; Start 06/19/18 at 18:30; Status UNV Heparin Sodium (Porcine) (Heparin Sodium) 800 unit PRN Q6HRS PRN IV FOR UFH LEVEL 0.2 - 0.29; Start 06/19/18 at 18:30; Status UNV Lorazepam (Ativan) 0.5 mg PRN Q8HRS PRN PO ANXIETY / AGITATION Last administered on 06/20/18at 11:24; Start 06/19/18 at 19:00 Sodium Chloride 1,000 ml @ 80 mls/hr [id number] IV Last administered on at 09:15; Start 06/19/18 at 20:45 Influenza Virus Vaccine (Afluria Trivalent [id number] Syringe) 0.5 ml ONCE ONCE VAX IM ; Start 06/20/18 at 09:00; Stop 06/20/18 at 09:01; Status DC Info (Anti-Coagulation Monitoring By Pharmacy) 1 each PRN DAILY PRN MC SEE COMMENTS Last administered on 06/20/18at 09:15; Start 06/20/18 at 09:00 Aspirin (Ecotrin) 81 mg [id number] PO ; Start 06/20/18 at 12:00 Sertraline HCl (Zoloft) 150 mg HS PO ; Start 06/20/18 at 21:00 Donepezil HCl (Aricept) 10 mg BID PO ; Start 06/20/18 at 12:00 Hydroxyzine HCl (Atarax) 10 mg DAILY PO ; Start 06/20/18 at 12:00 Hydroxyzine HCl (Atarax) 10 mg QHS PRN PO ANXIETY/AGITATION; Start 06/20/18 at 11:45 Non-Formulary Medication (Multivitamin/ Iron/Folic Acid (Centrum Complete Multivit Tab)) 1 each DAILY PO ; Start 06/21/18 at 09:00; Status UNV Non-Formulary Medication (Sertraline Hcl (Zoloft)) 100 mg HS PO ; Start at 21:00; Status UNV Active Scripts Active Reported Centrum Complete Multivit Tab (Multivitamin/Iron/Folic Acid) 1 Each Tablet 1 Each PO DAILY Hydroxyzine Hcl 10 Mg/5 Ml Syrup 10 Mg PO HS PRN Zoloft (Sertraline Hcl) 100 Mg Tablet 100 Mg PO HS Zoloft (Sertraline Hcl) 50 Mg Tablet 50 Mg PO HS Aricept (Donepezil Hcl) 23 Mg Tablet 23 Mg PO HS Hydroxyzine Hcl 10 Mg/5 Ml Syrup 10 Mg PO DAILY Vitals/I & O Vital Sign - Last 24 Hours 06/19/18 06/19/18 06/19/18 06/19/18 18:00 19:00 20:00 20:00 Temp 97.2 98.1 97.2 98.1 Pulse 82 86 86 Resp 20 19 21 B/P (MAP) 115/60 (78) 148/87 (107) 136/68 (90) Pulse Ox 95 94 92 O2 Delivery Room Air Room Air Room Air Nasal Cannula O2 Flow Rate 2.0 06/19/18 06/19/18 06/19/18 06/19/18 20:23 21:00 22:00 23:00 Pulse 86 84 84 Resp 20 20 22 B/P (MAP) 140/84 (102) 140/87 (104) 126/83 (97) Pulse Ox 98 99 100 100 O2 Delivery Nasal Cannula Nasal Cannula Nasal Cannula Nasal Cannula O2 Flow Rate 2.0 2.0 2.0 2.0 06/19/18 06/20/18 06/20/18 06/20/18 23:59 00:00 01:00 02:00 Temp 98.6 98.6 Pulse 82 80 79 Resp 20 18 B/P (MAP) 132/78 (96) 132/77 (95) 148/82 (104) Pulse Ox 99 99 100 O2 Delivery Nasal Cannula Nasal Cannula Nasal Cannula Nasal Cannula O2 Flow Rate 2.0 2.0 2.0 2.0 06/20/18 06/20/18 06/20/18 06/20/18 03:00 04:00 04:00 05:00 Temp 98.3 98.3 Pulse 72 75 75 Resp 19 24 20 B/P (MAP) 113/68 (83) 107/68 (81) 114/78 (90) Pulse Ox 99 99 98 O2 Delivery Nasal Cannula Nasal Cannula Nasal Cannula Nasal Cannula O2 Flow Rate 2.0 2.0 2.0 2.0 06/20/18 06/20/18 06/20/18 06/20/18 06:00 07:00 07:55 08:00 Temp 98.5 98.5 Pulse 78 69 74 Resp 16 14 14 B/P (MAP) 128/78 (95) 114/69 (84) 114/69 (84) Pulse Ox 95 95 98 98 O2 Delivery Nasal Cannula Nasal Cannula Nasal Cannula Nasal Cannula O2 Flow Rate 2.0 2.0 2.0 2.0 06/20/18 06/20/18 06/20/18 06/20/18 08:00 09:00 10:00 11:00 Pulse 72 69 78 Resp 14 30 30 B/P (MAP) 122/74 (90) 114/72 (86) 124/81 (95) Pulse Ox 95 95 95 O2 Delivery Nasal Cannula Nasal Cannula Nasal Cannula Nasal Cannula O2 Flow Rate 2.0 2.0 2.0 2.0 06/20/18 11:17 Pulse Ox 98 O2 Delivery Nasal Cannula O2 Flow Rate 2.0 Intake and Output 06/19/18 06/19/18 06/20/18 15:00 23:00 07:00 Intake Total 0 ml 923 ml Output Total 22 ml 292 ml Balance -22 ml 631 ml CAMILO ONEILL III DO Jun 20, 2018 12:17
--- NOTE | 2018-06-20 15:05 | PDOC ---
PULMONARY PROGRESS NOTES Vitals Vital Signs Date Time Temp Pulse Resp B/P (MAP) Pulse Ox O2 Delivery O2 Flow Rate FiO2 06/20/18 14:00 74 18 99/70 (80) 100 Nasal Cannula 2.0 06/20/18 12:00 98.2 98.2 Labs Laboratory Tests Test 06/19/18 18:30 06/19/18 19:00 06/19/18 22:20 06/19/18 23:00 White Blood Count 14.7 x10^3/uL (4.0-11.0) Red Blood Count 3.99 x10^6/uL (3.50-5.40) Hemoglobin 12.2 g/dL (12.0-15.5) Hematocrit 35.7 % (36.0-47.0) Mean Corpuscular Volume 90 fL (79-100) Mean Corpuscular Hemoglobin 31 pg (25-35) Mean Corpuscular Hemoglobin Concent 34 g/dL (31-37) Red Cell Distribution Width 13.5 % (11.5-14.5) Platelet Count 202 x10^3/uL (140-400) Neutrophils (%) (Auto) 92 % (31-73) Lymphocytes (%) (Auto) 4 % (24-48) Monocytes (%) (Auto) 4 % (0-9) Eosinophils (%) (Auto) 0 % (0-3) Basophils (%) (Auto) 0 % (0-3) Neutrophils # (Auto) 13.6 x10^3uL (1.8-7.7) Lymphocytes # (Auto) 0.5 x10^3/uL (1.0-4.8) Monocytes # (Auto) 0.6 x10^3/uL (0.0-1.1) Eosinophils # (Auto) 0.0 x10^3/uL (0.0-0.7) Basophils # (Auto) 0.0 x10^3/uL (0.0-0.2) Segmented Neutrophils % 89 % (35-66) Band Neutrophils % 3 % (0-9) Lymphocytes % 4 % (24-48) Monocytes % 4 % (0-10) Toxic Granulation Slight Toxic Vacuolation Slight Platelet Estimate Adequate (ADEQUATE) Sodium Level 145 mmol/L (136-145) Potassium Level 3.8 mmol/L (3.5-5.1) Chloride Level 108 mmol/L (98-107) Carbon Dioxide Level 26 mmol/L (21-32) Anion Gap 11 (6-14) Blood Urea Nitrogen 7 mg/dL (7-20) Creatinine 0.9 mg/dL (0.6-1.0) Estimated GFR (Cockcroft-Gault) 61.2 Glucose Level 127 mg/dL (70-99) Lactic Acid Level 2.8 mmol/L (0.4-2.0) 1.4 mmol/L (0.4-2.0) Calcium Level 9.2 mg/dL (8.5-10.1) Magnesium Level 2.1 mg/dL (1.8-2.4) Troponin I Quantitative 7.642 ng/mL (0.000-0.055) Nasal Screen MRSA (PCR) Negative (Negative) Urine Collection Type Unknown Urine Color Yellow Urine Clarity Clear Urine pH 6.5 Urine Specific [place] >=1.030 Urine Protein Negative mg/dL (NEG-TRACE) Urine Glucose (UA) Negative mg/dL (NEG) Urine Ketones (Stick) Negative mg/dL (NEG) Urine Blood Moderate (NEG) Urine Nitrite Negative (NEG) Urine Bilirubin Negative (NEG) Urine Urobilinogen Dipstick 0.2 mg/dL (0.2 mg/dL) Urine Leukocyte Esterase Negative (NEG) Urine RBC >40 /HPF (0-2) Urine WBC Occ /HPF (0-4) Urine Squamous Epithelial Cells Mod /LPF Urine Bacteria 0 /HPF (0-FEW) Urine Mucus Mod /LPF Test 06/20/18 00:15 06/20/18 06:15 06/20/18 11:50 White Blood Count 12.7 x10^3/uL (4.0-11.0) Red Blood Count 3.66 x10^6/uL (3.50-5.40) Hemoglobin 11.2 g/dL (12.0-15.5) Hematocrit 32.7 % (36.0-47.0) Mean Corpuscular Volume 89 fL (79-100) Mean Corpuscular Hemoglobin 31 pg (25-35) Mean Corpuscular Hemoglobin Concent 34 g/dL (31-37) Red Cell Distribution Width 13.5 % (11.5-14.5) Platelet Count 182 x10^3/uL (140-400) Neutrophils (%) (Auto) 87 % (31-73) Lymphocytes (%) (Auto) 6 % (24-48) Monocytes (%) (Auto) 6 % (0-9) Eosinophils (%) (Auto) 0 % (0-3) Basophils (%) (Auto) 0 % (0-3) Neutrophils # (Auto) 11.0 x10^3uL (1.8-7.7) Lymphocytes # (Auto) 0.8 x10^3/uL (1.0-4.8) Monocytes # (Auto) 0.8 x10^3/uL (0.0-1.1) Eosinophils # (Auto) 0.0 x10^3/uL (0.0-0.7) Basophils # (Auto) 0.0 x10^3/uL (0.0-0.2) Heparin Anti-Xa Act, Unfractionated > 1.10 IU/mL (0.30-0.70) 0.43 IU/mL (0.30-0.70) 0.34 IU/mL (0.30-0.70) Sodium Level 145 mmol/L (136-145) Potassium Level 3.7 mmol/L (3.5-5.1) Chloride Level 109 mmol/L (98-107) Carbon Dioxide Level 28 mmol/L (21-32) Anion Gap 8 (6-14) Blood Urea Nitrogen 6 mg/dL (7-20) Creatinine 0.9 mg/dL (0.6-1.0) Estimated GFR (Cockcroft-Gault) 61.2 Glucose Level 130 mg/dL (70-99) Calcium Level 9.1 mg/dL (8.5-10.1) Troponin I Quantitative 5.185 ng/mL (0.000-0.055) Triglycerides Level 116 mg/dL (0-150) Cholesterol Level 218 mg/dL (0-200) LDL Cholesterol, Calculated 141 mg/dL (0-100) VLDL Cholesterol, Calculated 23 mg/dL (0-40) Non-HDL Cholesterol Calculated 164 mg/dL (0-129) HDL Cholesterol 54 mg/dL (40-60) Cholesterol/HDL Ratio 4.0 Laboratory Tests Test 06/19/18 18:30 06/19/18 19:00 06/19/18 22:20 06/19/18 23:00 White Blood Count 14.7 x10^3/uL (4.0-11.0) Red Blood Count 3.99 x10^6/uL (3.50-5.40) Hemoglobin 12.2 g/dL (12.0-15.5) Hematocrit 35.7 % (36.0-47.0) Mean Corpuscular Volume 90 fL (79-100) Mean Corpuscular Hemoglobin 31 pg (25-35) Mean Corpuscular Hemoglobin Concent 34 g/dL (31-37) Red Cell Distribution Width 13.5 % (11.5-14.5) Platelet Count 202 x10^3/uL (140-400) Neutrophils (%) (Auto) 92 % (31-73) Lymphocytes (%) (Auto) 4 % (24-48) Monocytes (%) (Auto) 4 % (0-9) Eosinophils (%) (Auto) 0 % (0-3) Basophils (%) (Auto) 0 % (0-3) Neutrophils # (Auto) 13.6 x10^3uL (1.8-7.7) Lymphocytes # (Auto) 0.5 x10^3/uL (1.0-4.8) Monocytes # (Auto) 0.6 x10^3/uL (0.0-1.1) Eosinophils # (Auto) 0.0 x10^3/uL (0.0-0.7) Basophils # (Auto) 0.0 x10^3/uL (0.0-0.2) Segmented Neutrophils % 89 % (35-66) Band Neutrophils % 3 % (0-9) Lymphocytes % 4 % (24-48) Monocytes % 4 % (0-10) Toxic Granulation Slight Toxic Vacuolation Slight Platelet Estimate Adequate (ADEQUATE) Sodium Level 145 mmol/L (136-145) Potassium Level 3.8 mmol/L (3.5-5.1) Chloride Level 108 mmol/L (98-107) Carbon Dioxide Level 26 mmol/L (21-32) Anion Gap 11 (6-14) Blood Urea Nitrogen 7 mg/dL (7-20) Creatinine 0.9 mg/dL (0.6-1.0) Estimated GFR (Cockcroft-Gault) 61.2 Glucose Level 127 mg/dL (70-99) Lactic Acid Level 2.8 mmol/L (0.4-2.0) 1.4 mmol/L (0.4-2.0) Calcium Level 9.2 mg/dL (8.5-10.1) Magnesium Level 2.1 mg/dL (1.8-2.4) Troponin I Quantitative 7.642 ng/mL (0.000-0.055) Nasal Screen MRSA (PCR) Negative (Negative) Urine Collection Type Unknown Urine Color Yellow Urine Clarity Clear Urine pH 6.5 Urine Specific [place] >=1.030 Urine Protein Negative mg/dL (NEG-TRACE) Urine Glucose (UA) Negative mg/dL (NEG) Urine Ketones (Stick) Negative mg/dL (NEG) Urine Blood Moderate (NEG) Urine Nitrite Negative (NEG) Urine Bilirubin Negative (NEG) Urine Urobilinogen Dipstick 0.2 mg/dL (0.2 mg/dL) Urine Leukocyte Esterase Negative (NEG) Urine RBC >40 /HPF (0-2) Urine WBC Occ /HPF (0-4) Urine Squamous Epithelial Cells Mod /LPF Urine Bacteria 0 /HPF (0-FEW) Urine Mucus Mod /LPF Test 06/20/18 00:15 06/20/18 06:15 06/20/18 11:50 White Blood Count 12.7 x10^3/uL (4.0-11.0) Red Blood Count 3.66 x10^6/uL (3.50-5.40) Hemoglobin 11.2 g/dL (12.0-15.5) Hematocrit 32.7 % (36.0-47.0) Mean Corpuscular Volume 89 fL (79-100) Mean Corpuscular Hemoglobin 31 pg (25-35) Mean Corpuscular Hemoglobin Concent 34 g/dL (31-37) Red Cell Distribution Width 13.5 % (11.5-14.5) Platelet Count 182 x10^3/uL (140-400) Neutrophils (%) (Auto) 87 % (31-73) Lymphocytes (%) (Auto) 6 % (24-48) Monocytes (%) (Auto) 6 % (0-9) Eosinophils (%) (Auto) 0 % (0-3) Basophils (%) (Auto) 0 % (0-3) Neutrophils # (Auto) 11.0 x10^3uL (1.8-7.7) Lymphocytes # (Auto) 0.8 x10^3/uL (1.0-4.8) Monocytes # (Auto) 0.8 x10^3/uL (0.0-1.1) Eosinophils # (Auto) 0.0 x10^3/uL (0.0-0.7) Basophils # (Auto) 0.0 x10^3/uL (0.0-0.2) Heparin Anti-Xa Act, Unfractionated > 1.10 IU/mL (0.30-0.70) 0.43 IU/mL (0.30-0.70) 0.34 IU/mL (0.30-0.70) Sodium Level 145 mmol/L (136-145) Potassium Level 3.7 mmol/L (3.5-5.1) Chloride Level 109 mmol/L (98-107) Carbon Dioxide Level 28 mmol/L (21-32) Anion Gap 8 (6-14) Blood Urea Nitrogen 6 mg/dL (7-20) Creatinine 0.9 mg/dL (0.6-1.0) Estimated GFR (Cockcroft-Gault) 61.2 Glucose Level 130 mg/dL (70-99) Calcium Level 9.1 mg/dL (8.5-10.1) Troponin I Quantitative 5.185 ng/mL (0.000-0.055) Triglycerides Level 116 mg/dL (0-150) Cholesterol Level 218 mg/dL (0-200) LDL Cholesterol, Calculated 141 mg/dL (0-100) VLDL Cholesterol, Calculated 23 mg/dL (0-40) Non-HDL Cholesterol Calculated 164 mg/dL (0-129) HDL Cholesterol 54 mg/dL (40-60) Cholesterol/HDL Ratio 4.0 Medications Active Scripts Medications Dose Route/Sig Max Daily Dose Days Date Category Centrum Complete Multivit Tab (Multivitamin/Iron/Folic Acid) 1 Each Tablet 1 Each PO DAILY 06/20/18 Reported Hydroxyzine Hcl 10 Mg/5 Ml Syrup 10 Mg PO HS PRN 06/20/18 Reported Zoloft (Sertraline Hcl) 100 Mg Tablet 100 Mg PO HS 06/20/18 Reported Zoloft (Sertraline Hcl) 50 Mg Tablet 50 Mg PO HS 06/20/18 Reported Aricept (Donepezil Hcl) 23 Mg Tablet 23 Mg PO HS 06/20/18 Reported Hydroxyzine Hcl 10 Mg/5 Ml Syrup 10 Mg PO DAILY 06/19/18 Reported Impression . PE/DVT HEMODYNAMICALLY STABE NOT A CANDIDATE FOR TPA PT POOR CANDIDATE FOR [employer]ER ANTICOAGULATION D/W DR REEVES WILL PROCEED WITH PERMANENT IVC FILTER IN AM THANKS CONTINUE HEPARIN FOR NOW QUIAC STOOLS MARC MOODY MD Jun 20, 2018 15:05
[2018-06-20 16:18] LABS: FECAL OB PT NEGATIVE (NEG)
[2018-06-20] MEDS: SERTRALINE 50 MG TABLET. PO SCH (20:36)
[2018-06-20] MEDS: DONEPEZIL HCL 5 MG TABLET. PO SCH (20:36)
[2018-06-20] MEDS: ATORVASTATIN CALCIUM 20 MG TABLET PO SCH (20:36)
[2018-06-20] MEDS ORDERED: SERTRALINE HCL 100 MG PO SCH (21:00)
[2018-06-21] VITALS (17 sets, daily range): BP systolic 107–161; BP diastolic 7–83
[2018-06-21] MEDS ORDERED: IV NORMAL SALINE 500ML BAG 500 ML IV ONE (01:00)
[2018-06-21] MEDS: HEPARIN 25,000UTS/500ML PREMIX 500 ML IV PRN (01:58)
[2018-06-21 06:56] LABS: BASO % 1 % (0-3); EOS # 0.1 x10^3/uL (0.0-0.7); EOS % 2 % (0-3); HEMOGLOBIN 10.3 g/dL (12.0-15.5); LYMPH # 0.6 x10^3/uL (1.0-4.8); LYMPH % 8 % (24-48); MEAN CORPUSCULAR HEMOGLOBIN 31 pg (25-35); MEAN CORPUSCULAR HGB CONC 34 g/dL (31-37); MEAN CORPUSCULAR VOLUME 90 fL (79-100); MONO # 0.6 x10^3/uL (0.0-1.1); MONO % 7 % (0-9); NEUT # 6.6 x10^3uL (1.8-7.7); NEUT % 83 % (31-73); PLATELET COUNT 135 x10^3/uL (140-400); RED BLOOD COUNT 3.32 x10^6/uL (3.50-5.40); RED CELL DISTRIBUTION WIDTH 13.8 % (11.5-14.5); WHITE BLOOD COUNT 7.9 x10^3/uL (4.0-11.0)
[2018-06-21 07:21] LABS: CREATININE 0.7 mg/dL (0.6-1.0); GFR 81.8; POTASSIUM 3.6 mmol/L (3.5-5.1)
[2018-06-21] MEDS: ANTI-COAG MONITOR BY PHARMACY. MC PRN (08:16)
[2018-06-21] MEDS: IPRATRPIUM/ALBUTEROL 0.5/2.5MG 3 ML NEBU. NEB SCH ×3 (08:28→16:38)
[2018-06-21 08:33] LABS: PROTHROMBIN TIME PATIENT 14.7 SEC (11.7-14.0)
[2018-06-21] MEDS ORDERED: [UNRECOGNIZED DRUG - OTHER] PO SCH (09:00)
[2018-06-21] MEDS ORDERED: FOLIC ACID PO SCH (09:00)
[2018-06-21] MEDS ORDERED: IRON PO SCH (09:00)
[2018-06-21] MEDS ORDERED: MULTIVITAMIN PO SCH (09:00)
[2018-06-21] MEDS: IV NORMAL SALINE 1000ML BAG 1,000 ML IV SCH ×2 (09:11→22:19)
--- NOTE | 2018-06-21 09:17 | CONS ---
DATE OF CONSULTATION: 06/20/2018 ATTENDING PHYSICIAN: Dr. Hill. REASON FOR CONSULTATION: The patient seen in pulmonary consultation at the request of Dr. Hill for pulmonary embolism. HISTORY OF PRESENT ILLNESS: The patient is a 72-year-old that has been short of breath now for quite some time. She actually had several episodes at home of being short of breath and possibly losing her balance and falling to her knees. The patient is a very poor historian. She has underlying dementia. Yesterday, she had near syncopal episode x 2. Family called EMS, she was transferred to [facility] Emergency Room, she was worked up. CT angiogram revealed saddle emboli. Hemodynamically, she was always stable. O2 saturation was actually greater than 92% on room air. The patient was transferred to [facility] for further evaluation. I discussed the case last night with the nurse. She was hemodynamically stable and not a candidate for TPA. Venous Dopplers were ordered. Venous Doppler was actually positive for small clots in the popliteal vein and the calf vein. According to the daughter, who is her primary caregiver, the patient is very inactive. She basically does not get out of the house, but walks a little bit. She has a shuffled walk. There is no prior history of DVT, pulmonary embolism. The patient has not been complaining of shortness of breath up until yesterday. The daughter has not noted any syncope or near syncopal episodes. There is no family history of thrombophilia. She used to smoke as a teenager, does not wear oxygen at home. She basically does not get out much except for visiting doctors. PAST MEDICAL HISTORY: Remarkable for depression, dementia. No prior pulmonary history. She had a significant fall, striking her frontal occipital area, according to the daughter, she has had significant damage to the frontal lobe of the brain as a consequence of the fall. PAST SURGICAL HISTORY: She has had lower back pain and neck surgery. SOCIAL HISTORY: She has a remote history of tobacco as a teenager, lives at home with her and daughter who is the primary caregiver. ALLERGIES: No known drug allergies. MEDICATIONS: List was reviewed. Current medication list was reviewed. She has been on IV heparin since yesterday. REVIEW OF SYSTEMS: As indicated above, otherwise other systems could not be adequately reviewed. I asked the daughter, if she has had recent history of cancer, no history of cancer. No history of recent trauma or surgery to the lower extremities. She had a colonoscopy about 5 years ago. There has been no history given of hematemesis or hemoptysis. PHYSICAL EXAMINATION: GENERAL: The patient always appears to be anxious. She was in bed, curled up in a position, at times would moan. VITAL SIGNS: She is currently on 2 liters of oxygen supplementation. She at times was able to answer some of my questions. HEENT: Eyes, the sclerae were nonicteric. NECK: Jugular venous distention was not elevated. No lymphadenopathy. CHEST: Full expansion. LUNGS: Poor airway flow with some scattered rhonchi. CARDIOVASCULAR: Regular rate and rhythm with S1, S2; no S3. ABDOMEN: Soft, nontender, nondistended. EXTREMITIES: No clubbing, cyanosis or edema. NEUROLOGIC: The patient was awake, alert, following commands. A detailed neuro exam was not performed. LABORATORY DATA: Reviewed. White count was noted. Hemoglobin and hematocrit were noted. Electrolytes were noted. BUN and creatinine were noted. LDL cholesterol was noted. VLDL cholesterol calculated was likewise noted. CT reviewed. IMPRESSION: 1. Acute pulmonary embolism. 2. Acute respiratory distress secondary to above. 3. Recent near syncopal episode secondary to acute pulmonary embolism. 4. Echocardiogram revealing no significant right heart strain, mild elevation in pulmonary artery pressure, suspected pulmonary embolism was not acute, but subacute, the patient remained hemodynamically stable throughout her stay. 5. The patient at risk for fall with subsequent complications of utilizing anticoagulation. 6. Non-ST segment elevation myocardial infarction, elevated troponin level. PLAN: 1. We will proceed with IVC filter. 2. We will consider anticoagulation as an outpatient for short term. 3. The patient will remain bed rest for now. 4. Follow up Cardiology's input. I do appreciate the privilege in sharing in the patient's care. MARC MOODY MD DR: ODALIS/cuong JOB#: [id number] / [id number]
[2018-06-21] MEDS ORDERED: LIDOCAINE WITH 8.4% SOD BICARB 3 ML DISP.SYRIN. ONE (09:32)
[2018-06-21] MEDS ORDERED: IOHEXOL 240 MG/ML 50ML VIAL. ONE (09:32)
[2018-06-21] MEDS ORDERED: LIDOCAINE WITH 8.4% SOD BICARB 3 ML DISP.SYRIN. IJ ONE (10:15)
[2018-06-21] MEDS ORDERED: IOHEXOL 240 MG/ML 50ML VIAL. IV ONE (10:15)
--- NOTE | 2018-06-21 10:22 | PDOC ---
BRIEF OPERATIVE NOTE Pre-Op Diagnosis PE and DVT Post-Op Diagnosis same Procedure Performed IVC Filter Surgeon Flory Anesthesia Type: Local Findings No IVC thrombus or accessory IVC. Venatech permanent IVC filter placed Complications No immediate MICHAEL DOBSON MD Jun 21, 2018 10:22
--- NOTE | 2018-06-21 11:10 | RAD ---
Procedure: IVC filter placement Clinical Indication: 72-year-old female with pulmonary emboli and DVT, poor candidate for long-term anticoagulation Sedation: None Antibiotics: None Exposure: Kerma-Area Product: 97 Gycm2 Sterility: All elements of maximal sterile barrier technique including the use of a cap, mask, sterile gown, sterile gloves, large sterile sheet, appropriate hand hygiene, and 2% chlorhexidine for cutaneous antisepsis (or acceptable alternative antiseptic per current guidelines) were followed for this procedure. If ultrasound guidance was utilized, sterile ultrasound techniques were followed including use of a sterile probe cover. Consent: The procedure was explained in its entirety to the patient or the patients designated union contract representative by a member of the treatment team, including a discussion of the risks, benefits and commonly accepted alternatives to the procedure, as well as the expected consequences of no therapy whatsoever. Discussion of the risks included, but was not limited to, those that are most frequent and those that are rare but possibly severe or life-threatening, as well as the possibility of unforeseen complications. Technique and Findings: Following informed consent, the patient was prepped and draped in usual sterile fashion. Ultrasound interrogation of the right neck revealed patency and compressibility of the right internal jugular vein. A Hardcopy ultrasound image was recorded. As a 21-gauge micropuncture needle was used to gain access to this vein. The needle was exchanged over wire for a long sheath which was advanced into the left common iliac vein. Contrast venography was performed. There is no caval thrombosis or accessory IVC. The sheath was then retracted into the IVC and contrast venography was performed to identify the renal veins. A [employer] permanent IVC filter was then deployed under fluoroscopic guidance in an infrarenal location. Completion venogram demonstrated good position and complete deployment of the filter. The sheath was then removed and hemostasis was achieved with manual compression. Complications: No immediate Impression: 1. Infrarenal permanent IVC filter placement as described
--- NOTE | 2018-06-21 11:46 | PDOC ---
PROGRESS NOTES Chief Complaint Chief Complaint Saddle PE-acute onset, first episode S/p IVC filter placement 06/21/18 H/o Fall Hypoxic respiratory failure secondary to above above Elevated Troponin in the background of saddle PE H/o dementia History of Present Illness History of Present Illness Pt seen and examined in ICU Pt was laying in bed postop IVC filter placement Family at bedside DW RN Vitals Vitals Vital Signs Date Time Temp Pulse Resp B/P (MAP) Pulse Ox O2 Delivery O2 Flow Rate FiO2 06/21/18 08:31 98 Nasal Cannula 2.0 06/21/18 07:00 61 26 140/83 (102) 06/21/18 04:00 98.0 98.0 Physical Exam General: No acute distress, Other (just returned from surgery, resting) Heart: Regular rate (SR without ectopies), Other (2/6 systolic murmur to LLS border) Lungs: Other (scattered rhonchi) Abdomen: Soft, No tenderness Extremities: No cyanosis, No edema Skin: No rashes, No breakdown, No significant lesion Labs LABS Laboratory Tests Test 06/20/18 11:50 06/20/18 15:30 06/21/18 06:23 06/21/18 08:11 Heparin Anti-Xa Act, Unfractionated 0.34 IU/mL (0.30-0.70) 0.18 IU/mL (0.30-0.70) Stool Occult Blood Negative (NEG) White Blood Count 7.9 x10^3/uL (4.0-11.0) Red Blood Count 3.32 x10^6/uL (3.50-5.40) Hemoglobin 10.3 g/dL (12.0-15.5) Hematocrit 30.0 % (36.0-47.0) Mean Corpuscular Volume 90 fL (79-100) Mean Corpuscular Hemoglobin 31 pg (25-35) Mean Corpuscular Hemoglobin Concent 34 g/dL (31-37) Red Cell Distribution Width 13.8 % (11.5-14.5) Platelet Count 135 x10^3/uL (140-400) Neutrophils (%) (Auto) 83 % (31-73) Lymphocytes (%) (Auto) 8 % (24-48) Monocytes (%) (Auto) 7 % (0-9) Eosinophils (%) (Auto) 2 % (0-3) Basophils (%) (Auto) 1 % (0-3) Neutrophils # (Auto) 6.6 x10^3uL (1.8-7.7) Lymphocytes # (Auto) 0.6 x10^3/uL (1.0-4.8) Monocytes # (Auto) 0.6 x10^3/uL (0.0-1.1) Eosinophils # (Auto) 0.1 x10^3/uL (0.0-0.7) Basophils # (Auto) 0.0 x10^3/uL (0.0-0.2) Sodium Level 144 mmol/L (136-145) Potassium Level 3.6 mmol/L (3.5-5.1) Chloride Level 111 mmol/L (98-107) Carbon Dioxide Level 27 mmol/L (21-32) Anion Gap 6 (6-14) Blood Urea Nitrogen 9 mg/dL (7-20) Creatinine 0.7 mg/dL (0.6-1.0) Estimated GFR (Cockcroft-Gault) 81.8 Glucose Level 113 mg/dL (70-99) Calcium Level 8.0 mg/dL (8.5-10.1) Prothrombin Time 14.7 SEC (11.7-14.0) Prothromb Time International Ratio 1.2 (0.8-1.1) Activated Partial Thromboplast Time 60 SEC (24-38) Review of Systems Review of Systems Pt had just returned from surgery, resting. Unable to obtain. Assessment and Plan Assessmemt and Plan Assessment: Saddle PE-acute onset, first episode S/p IVC filter placement 06/21/18 H/o Fall Hypoxic respiratory failure secondary to above Elevated Troponin in the background of saddle PE H/o dementia Plan: ICU monitoring Cont heparin drip Monitor labs Home meds PT/OT/ST Appreciate pulm input DVT ppx Comment Review of Relevant I have reviewed the following items gal (where applicable) has been applied. Labs Laboratory Tests Test 06/19/18 18:30 06/19/18 19:00 06/19/18 22:20 06/19/18 23:00 White Blood Count 14.7 x10^3/uL (4.0-11.0) Red Blood Count 3.99 x10^6/uL (3.50-5.40) Hemoglobin 12.2 g/dL (12.0-15.5) Hematocrit 35.7 % (36.0-47.0) Mean Corpuscular Volume 90 fL (79-100) Mean Corpuscular Hemoglobin 31 pg (25-35) Mean Corpuscular Hemoglobin Concent 34 g/dL (31-37) Red Cell Distribution Width 13.5 % (11.5-14.5) Platelet Count 202 x10^3/uL (140-400) Neutrophils (%) (Auto) 92 % (31-73) Lymphocytes (%) (Auto) 4 % (24-48) Monocytes (%) (Auto) 4 % (0-9) Eosinophils (%) (Auto) 0 % (0-3) Basophils (%) (Auto) 0 % (0-3) Neutrophils # (Auto) 13.6 x10^3uL (1.8-7.7) Lymphocytes # (Auto) 0.5 x10^3/uL (1.0-4.8) Monocytes # (Auto) 0.6 x10^3/uL (0.0-1.1) Eosinophils # (Auto) 0.0 x10^3/uL (0.0-0.7) Basophils # (Auto) 0.0 x10^3/uL (0.0-0.2) Segmented Neutrophils % 89 % (35-66) Band Neutrophils % 3 % (0-9) Lymphocytes % 4 % (24-48) Monocytes % 4 % (0-10) Toxic Granulation Slight Toxic Vacuolation Slight Platelet Estimate Adequate (ADEQUATE) Sodium Level 145 mmol/L (136-145) Potassium Level 3.8 mmol/L (3.5-5.1) Chloride Level 108 mmol/L (98-107) Carbon Dioxide Level 26 mmol/L (21-32) Anion Gap 11 (6-14) Blood Urea Nitrogen 7 mg/dL (7-20) Creatinine 0.9 mg/dL (0.6-1.0) Estimated GFR (Cockcroft-Gault) 61.2 Glucose Level 127 mg/dL (70-99) Lactic Acid Level 2.8 mmol/L (0.4-2.0) 1.4 mmol/L (0.4-2.0) Calcium Level 9.2 mg/dL (8.5-10.1) Magnesium Level 2.1 mg/dL (1.8-2.4) Troponin I Quantitative 7.642 ng/mL (0.000-0.055) Nasal Screen MRSA (PCR) Negative (Negative) Urine Collection Type Unknown Urine Color Yellow Urine Clarity Clear Urine pH 6.5 Urine Specific [place] >=1.030 Urine Protein Negative mg/dL (NEG-TRACE) Urine Glucose (UA) Negative mg/dL (NEG) Urine Ketones (Stick) Negative mg/dL (NEG) Urine Blood Moderate (NEG) Urine Nitrite Negative (NEG) Urine Bilirubin Negative (NEG) Urine Urobilinogen Dipstick 0.2 mg/dL (0.2 mg/dL) Urine Leukocyte Esterase Negative (NEG) Urine RBC >40 /HPF (0-2) Urine WBC Occ /HPF (0-4) Urine Squamous Epithelial Cells Mod /LPF Urine Bacteria 0 /HPF (0-FEW) Urine Mucus Mod /LPF Test 06/20/18 00:15 06/20/18 06:15 06/20/18 11:50 06/20/18 15:30 White Blood Count 12.7 x10^3/uL (4.0-11.0) Red Blood Count 3.66 x10^6/uL (3.50-5.40) Hemoglobin 11.2 g/dL (12.0-15.5) Hematocrit 32.7 % (36.0-47.0) Mean Corpuscular Volume 89 fL (79-100) Mean Corpuscular Hemoglobin 31 pg (25-35) Mean Corpuscular Hemoglobin Concent 34 g/dL (31-37) Red Cell Distribution Width 13.5 % (11.5-14.5) Platelet Count 182 x10^3/uL (140-400) Neutrophils (%) (Auto) 87 % (31-73) Lymphocytes (%) (Auto) 6 % (24-48) Monocytes (%) (Auto) 6 % (0-9) Eosinophils (%) (Auto) 0 % (0-3) Basophils (%) (Auto) 0 % (0-3) Neutrophils # (Auto) 11.0 x10^3uL (1.8-7.7) Lymphocytes # (Auto) 0.8 x10^3/uL (1.0-4.8) Monocytes # (Auto) 0.8 x10^3/uL (0.0-1.1) Eosinophils # (Auto) 0.0 x10^3/uL (0.0-0.7) Basophils # (Auto) 0.0 x10^3/uL (0.0-0.2) Heparin Anti-Xa Act, Unfractionated > 1.10 IU/mL (0.30-0.70) 0.43 IU/mL (0.30-0.70) 0.34 IU/mL (0.30-0.70) Sodium Level 145 mmol/L (136-145) Potassium Level 3.7 mmol/L (3.5-5.1) Chloride Level 109 mmol/L (98-107) Carbon Dioxide Level 28 mmol/L (21-32) Anion Gap 8 (6-14) Blood Urea Nitrogen 6 mg/dL (7-20) Creatinine 0.9 mg/dL (0.6-1.0) Estimated GFR (Cockcroft-Gault) 61.2 Glucose Level 130 mg/dL (70-99) Calcium Level 9.1 mg/dL (8.5-10.1) Troponin I Quantitative 5.185 ng/mL (0.000-0.055) Triglycerides Level 116 mg/dL (0-150) Cholesterol Level 218 mg/dL (0-200) LDL Cholesterol, Calculated 141 mg/dL (0-100) VLDL Cholesterol, Calculated 23 mg/dL (0-40) Non-HDL Cholesterol Calculated 164 mg/dL (0-129) HDL Cholesterol 54 mg/dL (40-60) Cholesterol/HDL Ratio 4.0 Stool Occult Blood Negative (NEG) Test 06/21/18 06:23 06/21/18 08:11 White Blood Count 7.9 x10^3/uL (4.0-11.0) Red Blood Count 3.32 x10^6/uL (3.50-5.40) Hemoglobin 10.3 g/dL (12.0-15.5) Hematocrit 30.0 % (36.0-47.0) Mean Corpuscular Volume 90 fL (79-100) Mean Corpuscular Hemoglobin 31 pg (25-35) Mean Corpuscular Hemoglobin Concent 34 g/dL (31-37) Red Cell Distribution Width 13.8 % (11.5-14.5) Platelet Count 135 x10^3/uL (140-400) Neutrophils (%) (Auto) 83 % (31-73) Lymphocytes (%) (Auto) 8 % (24-48) Monocytes (%) (Auto) 7 % (0-9) Eosinophils (%) (Auto) 2 % (0-3) Basophils (%) (Auto) 1 % (0-3) Neutrophils # (Auto) 6.6 x10^3uL (1.8-7.7) Lymphocytes # (Auto) 0.6 x10^3/uL (1.0-4.8) Monocytes # (Auto) 0.6 x10^3/uL (0.0-1.1) Eosinophils # (Auto) 0.1 x10^3/uL (0.0-0.7) Basophils # (Auto) 0.0 x10^3/uL (0.0-0.2) Heparin Anti-Xa Act, Unfractionated 0.18 IU/mL (0.30-0.70) Sodium Level 144 mmol/L (136-145) Potassium Level 3.6 mmol/L (3.5-5.1) Chloride Level 111 mmol/L (98-107) Carbon Dioxide Level 27 mmol/L (21-32) Anion Gap 6 (6-14) Blood Urea Nitrogen 9 mg/dL (7-20) Creatinine 0.7 mg/dL (0.6-1.0) Estimated GFR (Cockcroft-Gault) 81.8 Glucose Level 113 mg/dL (70-99) Calcium Level 8.0 mg/dL (8.5-10.1) Prothrombin Time 14.7 SEC (11.7-14.0) Prothromb Time International Ratio 1.2 (0.8-1.1) Activated Partial Thromboplast Time 60 SEC (24-38) Laboratory Tests Test 06/20/18 11:50 06/20/18 15:30 06/21/18 06:23 06/21/18 08:11 Heparin Anti-Xa Act, Unfractionated 0.34 IU/mL (0.30-0.70) 0.18 IU/mL (0.30-0.70) Stool Occult Blood Negative (NEG) White Blood Count 7.9 x10^3/uL (4.0-11.0) Red Blood Count 3.32 x10^6/uL (3.50-5.40) Hemoglobin 10.3 g/dL (12.0-15.5) Hematocrit 30.0 % (36.0-47.0) Mean Corpuscular Volume 90 fL (79-100) Mean Corpuscular Hemoglobin 31 pg (25-35) Mean Corpuscular Hemoglobin Concent 34 g/dL (31-37) Red Cell Distribution Width 13.8 % (11.5-14.5) Platelet Count 135 x10^3/uL (140-400) Neutrophils (%) (Auto) 83 % (31-73) Lymphocytes (%) (Auto) 8 % (24-48) Monocytes (%) (Auto) 7 % (0-9) Eosinophils (%) (Auto) 2 % (0-3) Basophils (%) (Auto) 1 % (0-3) Neutrophils # (Auto) 6.6 x10^3uL (1.8-7.7) Lymphocytes # (Auto) 0.6 x10^3/uL (1.0-4.8) Monocytes # (Auto) 0.6 x10^3/uL (0.0-1.1) Eosinophils # (Auto) 0.1 x10^3/uL (0.0-0.7) Basophils # (Auto) 0.0 x10^3/uL (0.0-0.2) Sodium Level 144 mmol/L (136-145) Potassium Level 3.6 mmol/L (3.5-5.1) Chloride Level 111 mmol/L (98-107) Carbon Dioxide Level 27 mmol/L (21-32) Anion Gap 6 (6-14) Blood Urea Nitrogen 9 mg/dL (7-20) Creatinine 0.7 mg/dL (0.6-1.0) Estimated GFR (Cockcroft-Gault) 81.8 Glucose Level 113 mg/dL (70-99) Calcium Level 8.0 mg/dL (8.5-10.1) Prothrombin Time 14.7 SEC (11.7-14.0) Prothromb Time International Ratio 1.2 (0.8-1.1) Activated Partial Thromboplast Time 60 SEC (24-38) Microbiology 06/20/18 Blood Culture - Preliminary, Resulted NO GROWTH AFTER 1 DAY Medications Current Medications Ondansetron HCl (Zofran) 4 mg PRN Q6HRS PRN IV NAUSEA/VOMITING; Start at 18:15; Stop 06/19/18 at 19:01; Status DC Sodium Chloride (Normal Saline Flush) 3 ml QSHIFT PRN IV AFTER MEDS AND BLOOD DRAWS; Start 06/19/18 at 18:15 Albuterol/ Ipratropium (Duoneb) 3 ml RTQID NEB Last administered on 06/21/18at 08:28; Start 06/19/18 at 20:00 Guaifenesin (Robitussin Dm) 10 ml PRN Q6HRS PRN PO COUGH; Start 06/19/18 at 18 :30 Donepezil HCl (Aricept) 5 mg QHS PO Last administered on 06/20/18at 20:36; Start 06/19/18 at 21:00; Stop 06/21/18 at 08:10; Status DC Sertraline HCl (Zoloft) 25 mg QHS PO Last administered on 06/19/18at 20:35; Start 06/19/18 at 21:00; Stop 06/20/18 at 11:33; Status DC Alprazolam (Xanax) 0.25 mg PRN Q8HRS PRN PO ANXIETY/AGITATION 2ND CHOICE; Start 06/19/18 at 18:30 Alprazolam (Xanax) 0.25 mg 1X ONCE PO Last administered on 06/19/18at 20:27; Start 06/19/18 at 18:30; Stop 06/19/18 at 18:34; Status DC Hydroxyzine HCl (Atarax) 10 mg PRN Q6HRS PRN PO ITCHING; Start 06/19/18 at 18: 30 Multivitamins (Thera M Plus) 1 tab DAILY PO ; Start 06/20/18 at 09:00 Heparin Sodium (Porcine) (Heparin Sodium) 4,160 unit 1X ONCE IV Last administered on 06/19/18at 20:27; Start 06/19/18 at 18:30; Stop 06/19/18 at 18 :34; Status DC Heparin Sodium/ Dextrose 500 ml @ 16.64 mls/ hr CONT PRN IV SEE I/O RECORD Last administered on 06/21/18at 01:58; Start 06/19/18 at 18:30 Heparin Sodium (Porcine) (Heparin Sodium) 1,560 unit PRN Q6HRS PRN IV FOR UFH LEVEL LESS THAN 0.2; Start 06/19/18 at 18:30 Heparin Sodium (Porcine) (Heparin Sodium) 780 unit PRN Q6HRS PRN IV FOR UFH LEVEL 0.2 - 0.29; Start 06/19/18 at 18:30 Acetaminophen/ Hydrocodone Bitart (Lortab 5/325) 1 tab PRN Q4HRS PRN PO MODERATE-SEVERE PAIN; Start 06/19/18 at 18:30 Acetaminophen (Tylenol) 500 mg PRN Q6HRS PRN PO MILD PAIN / TEMP; Start at 18:30 Ondansetron HCl (Zofran) 4 mg PRN Q6HRS PRN IV NAUSEA/VOMITING Last administered on 06/20/18at 12:09; Start 06/19/18 at 18:30 Ondansetron HCl (Zofran Odt) 4 mg PRN Q6HRS PRN PO NAUSEA/VOMITING; Start at 18:30 Heparin Sodium (Porcine) (Heparin Sodium) 4,150 unit 1X ONCE IV ; Start at 18:30; Stop 06/19/18 at 18:31; Status UNV Heparin Sodium/ Dextrose 500 ml @ 0 mls/hr CONT PRN IV SEE I/O RECORD; Start 06/19/18 at 18:30; Status UNV Heparin Sodium (Porcine) (Heparin Sodium) 1,550 unit PRN Q6HRS PRN IV FOR UFH LEVEL LESS THAN 0.2; Start 06/19/18 at 18:30; Status UNV Heparin Sodium (Porcine) (Heparin Sodium) 800 unit PRN Q6HRS PRN IV FOR UFH LEVEL 0.2 - 0.29; Start 06/19/18 at 18:30; Status UNV Lorazepam (Ativan) 0.5 mg PRN Q8HRS PRN PO ANXIETY/AGITATION 1ST CHOICE Last administered on 06/20/18at 20:04; Start 06/19/18 at 19:00 Sodium Chloride 1,000 ml @ 80 mls/hr [id number] IV Last administered on at 09:11; Start 06/19/18 at 20:45 Influenza Virus Vaccine (Afluria Trivalent [id number] Syringe) 0.5 ml ONCE ONCE VAX IM ; Start 06/20/18 at 09:00; Stop 06/20/18 at 09:01; Status DC Info (Anti-Coagulation Monitoring By Pharmacy) 1 each PRN DAILY PRN MC SEE COMMENTS Last administered on 06/21/18at 08:16; Start 06/20/18 at 09:00 Aspirin (Ecotrin) 81 mg [id number] PO ; Start 06/20/18 at 12:00 Sertraline HCl (Zoloft) 150 mg HS PO Last administered on 06/20/18at 20:36; Start 06/20/18 at 21:00 Donepezil HCl (Aricept) 10 mg BID PO ; Start 06/20/18 at 12:00 Hydroxyzine HCl (Atarax) 10 mg DAILY PO ; Start 06/20/18 at 12:00 Hydroxyzine HCl (Atarax) 10 mg QHS PRN PO ANXIETY/AGITATION; Start 06/20/18 at 11:45 Non-Formulary Medication (Multivitamin/ Iron/Folic Acid (Centrum Complete Multivit Tab)) 1 each DAILY PO ; Start 06/21/18 at 09:00; Status UNV Non-Formulary Medication (Sertraline Hcl (Zoloft)) 100 mg HS PO ; Start at 21:00; Status UNV Atorvastatin Calcium (Lipitor) 20 mg QHS PO Last administered on 06/20/18at 20: 36; Start 06/20/18 at 21:00 Sodium Chloride 500 ml @ 500 mls/hr 1X ONCE IV Last administered on at 00:37; Start 06/21/18 at 01:00; Stop 06/21/18 at 01:59; Status DC Lidocaine/Sodium Bicarbonate (Buffered Lidocaine 1%) 3 ml STK-MED ONCE .ROUTE ; Start 06/21/18 at 09:32; Stop 06/21/18 at 09:33; Status DC Iohexol (Omnipaque 240 Mg/ml) 50 ml STK-MED ONCE .ROUTE ; Start 06/21/18 at 09: 32; Stop 06/21/18 at 09:33; Status DC Lidocaine/Sodium Bicarbonate (Buffered Lidocaine 1%) 3 ml 1X ONCE IJ Last administered on 06/21/18at 10:16; Start 06/21/18 at 10:15; Stop 06/21/18 at 10 :16; Status DC Iohexol (Omnipaque 240 Mg/ml) 50 ml 1X ONCE IV Last administered on at 10:17; Start 06/21/18 at 10:15; Stop 06/21/18 at 10:16; Status DC Active Scripts Active Reported Centrum Complete Multivit Tab (Multivitamin/Iron/Folic Acid) 1 Each Tablet 1 Each PO DAILY Hydroxyzine Hcl 10 Mg/5 Ml Syrup 10 Mg PO HS PRN Zoloft (Sertraline Hcl) 100 Mg Tablet 100 Mg PO HS Zoloft (Sertraline Hcl) 50 Mg Tablet 50 Mg PO HS Aricept (Donepezil Hcl) 23 Mg Tablet 23 Mg PO HS Hydroxyzine Hcl 10 Mg/5 Ml Syrup 10 Mg PO DAILY Vitals/I & O Vital Sign - Last 24 Hours 06/20/18 06/20/18 06/20/18 06/20/18 12:00 12:00 13:00 14:00 Temp 98.2 98.2 Pulse 78 89 74 Resp 30 28 18 B/P (MAP) 105/61 (76) 100/76 (84) 99/70 (80) Pulse Ox 99 98 100 O2 Delivery Nasal Cannula Nasal Cannula Nasal Cannula Nasal Cannula O2 Flow Rate 3.0 3.0 2.0 2.0 06/20/18 06/20/18 06/20/18 06/20/18 15:00 15:16 16:00 16:00 Pulse 74 113 Resp 22 22 B/P (MAP) 116/64 (81) 123/71 (88) Pulse Ox 100 98 100 O2 Delivery Nasal Cannula Nasal Cannula Nasal Cannula Nasal Cannula O2 Flow Rate 2.0 2.0 3.0 2.0 06/20/18 06/20/18 06/20/18 06/20/18 17:00 18:00 19:00 20:00 Temp 98.5 98.5 Pulse 70 70 87 Resp 20 18 20 B/P (MAP) 119/71 (87) 117/75 (89) 127/73 (91) Pulse Ox 100 100 99 O2 Delivery Nasal Cannula Nasal Cannula Nasal Cannula Nasal Cannula O2 Flow Rate 2.0 2.0 2.0 2.0 06/20/18 06/20/18 06/20/18 06/20/18 20:00 21:00 22:00 23:00 Temp 98.2 98.2 Pulse 88 69 73 68 Resp 30 20 22 18 B/P (MAP) 106/61 (76) 120/69 (86) 114/58 (76) 114/58 (76) Pulse Ox 98 100 100 100 O2 Delivery Nasal Cannula Nasal Cannula Nasal Cannula Nasal Cannula O2 Flow Rate 2.0 2.0 2.0 2.0 06/20/18 06/20/18 06/21/18 06/21/18 23:59 23:59 01:00 02:00 Temp 98.1 98.1 Pulse 86 63 66 Resp 28 26 20 B/P (MAP) 133/70 (91) 127/61 (83) 129/74 (92) Pulse Ox 100 100 96 O2 Delivery Nasal Cannula Nasal Cannula Nasal Cannula Nasal Cannula O2 Flow Rate 2.0 2.0 2.0 2.0 06/21/18 06/21/18 06/21/18 06/21/18 03:00 04:00 04:00 05:00 Temp 98.0 98.0 Pulse 74 67 63 Resp 24 22 26 B/P (MAP) 135/61 (85) 142/70 (94) 147/74 (98) Pulse Ox 97 99 100 O2 Delivery Nasal Cannula Nasal Cannula Nasal Cannula Nasal Cannula O2 Flow Rate 2.0 2.0 2.0 2.0 06/21/18 06/21/18 06/21/18 06:00 07:00 08:31 Pulse 61 61 Resp 24 26 B/P (MAP) 145/74 (97) 140/83 (102) Pulse Ox 100 100 98 O2 Delivery Nasal Cannula Nasal Cannula Nasal Cannula O2 Flow Rate 2.0 2.0 2.0 Intake and Output 06/20/18 06/20/18 06/21/18 15:00 23:00 07:00 Intake Total 145 ml 1521 ml 1338 ml Output Total 335 ml 355 ml 190 ml Balance -190 ml 1166 ml 1148 ml Nutrition Consultation Dietary Evaluation: Recommendations by RD: Increase Calorie Intake, Protein supplementation Comments: REC advance diet to GI soft/regular w/textures per [employer] REC Ensure TID Expected Outcomes/Goals: PO intake to meet >75% est needs Malnutrition Findings: Body Fat Depletion (Non Severe: Mild Depletion Weight Status: Underweight CAMILO ONEILL III DO Jun 21, 2018 11:46
--- NOTE | 2018-06-21 12:16 | PDOC ---
PULMONARY PROGRESS NOTES Subjective PT NOT MORE SOA Vitals Vital Signs Date Time Temp Pulse Resp B/P (MAP) Pulse Ox O2 Delivery O2 Flow Rate FiO2 06/21/18 12:00 Nasal Cannula 2.0 06/21/18 08:31 98 06/21/18 07:00 61 26 140/83 (102) 06/21/18 04:00 98.0 98.0 ROS: No Nausea, No Chest Pain, No Abdominal Pain, No Increase Cough General: Alert Lungs: Clear Cardiovascular: S1, S2 Abdomen: Soft Neuro Exam: Alert Extremities: No Edema Skin: Warm Labs Laboratory Tests Test 06/19/18 18:30 06/19/18 19:00 06/19/18 22:20 06/19/18 23:00 White Blood Count 14.7 x10^3/uL (4.0-11.0) Red Blood Count 3.99 x10^6/uL (3.50-5.40) Hemoglobin 12.2 g/dL (12.0-15.5) Hematocrit 35.7 % (36.0-47.0) Mean Corpuscular Volume 90 fL (79-100) Mean Corpuscular Hemoglobin 31 pg (25-35) Mean Corpuscular Hemoglobin Concent 34 g/dL (31-37) Red Cell Distribution Width 13.5 % (11.5-14.5) Platelet Count 202 x10^3/uL (140-400) Neutrophils (%) (Auto) 92 % (31-73) Lymphocytes (%) (Auto) 4 % (24-48) Monocytes (%) (Auto) 4 % (0-9) Eosinophils (%) (Auto) 0 % (0-3) Basophils (%) (Auto) 0 % (0-3) Neutrophils # (Auto) 13.6 x10^3uL (1.8-7.7) Lymphocytes # (Auto) 0.5 x10^3/uL (1.0-4.8) Monocytes # (Auto) 0.6 x10^3/uL (0.0-1.1) Eosinophils # (Auto) 0.0 x10^3/uL (0.0-0.7) Basophils # (Auto) 0.0 x10^3/uL (0.0-0.2) Segmented Neutrophils % 89 % (35-66) Band Neutrophils % 3 % (0-9) Lymphocytes % 4 % (24-48) Monocytes % 4 % (0-10) Toxic Granulation Slight Toxic Vacuolation Slight Platelet Estimate Adequate (ADEQUATE) Sodium Level 145 mmol/L (136-145) Potassium Level 3.8 mmol/L (3.5-5.1) Chloride Level 108 mmol/L (98-107) Carbon Dioxide Level 26 mmol/L (21-32) Anion Gap 11 (6-14) Blood Urea Nitrogen 7 mg/dL (7-20) Creatinine 0.9 mg/dL (0.6-1.0) Estimated GFR (Cockcroft-Gault) 61.2 Glucose Level 127 mg/dL (70-99) Lactic Acid Level 2.8 mmol/L (0.4-2.0) 1.4 mmol/L (0.4-2.0) Calcium Level 9.2 mg/dL (8.5-10.1) Magnesium Level 2.1 mg/dL (1.8-2.4) Troponin I Quantitative 7.642 ng/mL (0.000-0.055) Nasal Screen MRSA (PCR) Negative (Negative) Urine Collection Type Unknown Urine Color Yellow Urine Clarity Clear Urine pH 6.5 Urine Specific [place] >=1.030 Urine Protein Negative mg/dL (NEG-TRACE) Urine Glucose (UA) Negative mg/dL (NEG) Urine Ketones (Stick) Negative mg/dL (NEG) Urine Blood Moderate (NEG) Urine Nitrite Negative (NEG) Urine Bilirubin Negative (NEG) Urine Urobilinogen Dipstick 0.2 mg/dL (0.2 mg/dL) Urine Leukocyte Esterase Negative (NEG) Urine RBC >40 /HPF (0-2) Urine WBC Occ /HPF (0-4) Urine Squamous Epithelial Cells Mod /LPF Urine Bacteria 0 /HPF (0-FEW) Urine Mucus Mod /LPF Test 06/20/18 00:15 06/20/18 06:15 06/20/18 11:50 06/20/18 15:30 White Blood Count 12.7 x10^3/uL (4.0-11.0) Red Blood Count 3.66 x10^6/uL (3.50-5.40) Hemoglobin 11.2 g/dL (12.0-15.5) Hematocrit 32.7 % (36.0-47.0) Mean Corpuscular Volume 89 fL (79-100) Mean Corpuscular Hemoglobin 31 pg (25-35) Mean Corpuscular Hemoglobin Concent 34 g/dL (31-37) Red Cell Distribution Width 13.5 % (11.5-14.5) Platelet Count 182 x10^3/uL (140-400) Neutrophils (%) (Auto) 87 % (31-73) Lymphocytes (%) (Auto) 6 % (24-48) Monocytes (%) (Auto) 6 % (0-9) Eosinophils (%) (Auto) 0 % (0-3) Basophils (%) (Auto) 0 % (0-3) Neutrophils # (Auto) 11.0 x10^3uL (1.8-7.7) Lymphocytes # (Auto) 0.8 x10^3/uL (1.0-4.8) Monocytes # (Auto) 0.8 x10^3/uL (0.0-1.1) Eosinophils # (Auto) 0.0 x10^3/uL (0.0-0.7) Basophils # (Auto) 0.0 x10^3/uL (0.0-0.2) Heparin Anti-Xa Act, Unfractionated > 1.10 IU/mL (0.30-0.70) 0.43 IU/mL (0.30-0.70) 0.34 IU/mL (0.30-0.70) Sodium Level 145 mmol/L (136-145) Potassium Level 3.7 mmol/L (3.5-5.1) Chloride Level 109 mmol/L (98-107) Carbon Dioxide Level 28 mmol/L (21-32) Anion Gap 8 (6-14) Blood Urea Nitrogen 6 mg/dL (7-20) Creatinine 0.9 mg/dL (0.6-1.0) Estimated GFR (Cockcroft-Gault) 61.2 Glucose Level 130 mg/dL (70-99) Calcium Level 9.1 mg/dL (8.5-10.1) Troponin I Quantitative 5.185 ng/mL (0.000-0.055) Triglycerides Level 116 mg/dL (0-150) Cholesterol Level 218 mg/dL (0-200) LDL Cholesterol, Calculated 141 mg/dL (0-100) VLDL Cholesterol, Calculated 23 mg/dL (0-40) Non-HDL Cholesterol Calculated 164 mg/dL (0-129) HDL Cholesterol 54 mg/dL (40-60) Cholesterol/HDL Ratio 4.0 Stool Occult Blood Negative (NEG) Test 06/21/18 06:23 06/21/18 08:11 White Blood Count 7.9 x10^3/uL (4.0-11.0) Red Blood Count 3.32 x10^6/uL (3.50-5.40) Hemoglobin 10.3 g/dL (12.0-15.5) Hematocrit 30.0 % (36.0-47.0) Mean Corpuscular Volume 90 fL (79-100) Mean Corpuscular Hemoglobin 31 pg (25-35) Mean Corpuscular Hemoglobin Concent 34 g/dL (31-37) Red Cell Distribution Width 13.8 % (11.5-14.5) Platelet Count 135 x10^3/uL (140-400) Neutrophils (%) (Auto) 83 % (31-73) Lymphocytes (%) (Auto) 8 % (24-48) Monocytes (%) (Auto) 7 % (0-9) Eosinophils (%) (Auto) 2 % (0-3) Basophils (%) (Auto) 1 % (0-3) Neutrophils # (Auto) 6.6 x10^3uL (1.8-7.7) Lymphocytes # (Auto) 0.6 x10^3/uL (1.0-4.8) Monocytes # (Auto) 0.6 x10^3/uL (0.0-1.1) Eosinophils # (Auto) 0.1 x10^3/uL (0.0-0.7) Basophils # (Auto) 0.0 x10^3/uL (0.0-0.2) Heparin Anti-Xa Act, Unfractionated 0.18 IU/mL (0.30-0.70) Sodium Level 144 mmol/L (136-145) Potassium Level 3.6 mmol/L (3.5-5.1) Chloride Level 111 mmol/L (98-107) Carbon Dioxide Level 27 mmol/L (21-32) Anion Gap 6 (6-14) Blood Urea Nitrogen 9 mg/dL (7-20) Creatinine 0.7 mg/dL (0.6-1.0) Estimated GFR (Cockcroft-Gault) 81.8 Glucose Level 113 mg/dL (70-99) Calcium Level 8.0 mg/dL (8.5-10.1) Prothrombin Time 14.7 SEC (11.7-14.0) Prothromb Time International Ratio 1.2 (0.8-1.1) Activated Partial Thromboplast Time 60 SEC (24-38) Laboratory Tests Test 06/20/18 15:30 06/21/18 06:23 06/21/18 08:11 Stool Occult Blood Negative (NEG) White Blood Count 7.9 x10^3/uL (4.0-11.0) Red Blood Count 3.32 x10^6/uL (3.50-5.40) Hemoglobin 10.3 g/dL (12.0-15.5) Hematocrit 30.0 % (36.0-47.0) Mean Corpuscular Volume 90 fL (79-100) Mean Corpuscular Hemoglobin 31 pg (25-35) Mean Corpuscular Hemoglobin Concent 34 g/dL (31-37) Red Cell Distribution Width 13.8 % (11.5-14.5) Platelet Count 135 x10^3/uL (140-400) Neutrophils (%) (Auto) 83 % (31-73) Lymphocytes (%) (Auto) 8 % (24-48) Monocytes (%) (Auto) 7 % (0-9) Eosinophils (%) (Auto) 2 % (0-3) Basophils (%) (Auto) 1 % (0-3) Neutrophils # (Auto) 6.6 x10^3uL (1.8-7.7) Lymphocytes # (Auto) 0.6 x10^3/uL (1.0-4.8) Monocytes # (Auto) 0.6 x10^3/uL (0.0-1.1) Eosinophils # (Auto) 0.1 x10^3/uL (0.0-0.7) Basophils # (Auto) 0.0 x10^3/uL (0.0-0.2) Heparin Anti-Xa Act, Unfractionated 0.18 IU/mL (0.30-0.70) Sodium Level 144 mmol/L (136-145) Potassium Level 3.6 mmol/L (3.5-5.1) Chloride Level 111 mmol/L (98-107) Carbon Dioxide Level 27 mmol/L (21-32) Anion Gap 6 (6-14) Blood Urea Nitrogen 9 mg/dL (7-20) Creatinine 0.7 mg/dL (0.6-1.0) Estimated GFR (Cockcroft-Gault) 81.8 Glucose Level 113 mg/dL (70-99) Calcium Level 8.0 mg/dL (8.5-10.1) Prothrombin Time 14.7 SEC (11.7-14.0) Prothromb Time International Ratio 1.2 (0.8-1.1) Activated Partial Thromboplast Time 60 SEC (24-38) Medications Active Scripts Medications Dose Route/Sig Max Daily Dose Days Date Category Centrum Complete Multivit Tab (Multivitamin/Iron/Folic Acid) 1 Each Tablet 1 Each PO DAILY 06/20/18 Reported Hydroxyzine Hcl 10 Mg/5 Ml Syrup 10 Mg PO HS PRN 06/20/18 Reported Zoloft (Sertraline Hcl) 100 Mg Tablet 100 Mg PO HS 06/20/18 Reported Zoloft (Sertraline Hcl) 50 Mg Tablet 50 Mg PO HS 06/20/18 Reported Aricept (Donepezil Hcl) 23 Mg Tablet 23 Mg PO HS 06/20/18 Reported Hydroxyzine Hcl 10 Mg/5 Ml Syrup 10 Mg PO DAILY 06/19/18 Reported Impression . IMPRESSION: 1. Acute pulmonary embolism. 2. Acute respiratory distress secondary to above. 3. Recent near syncopal episode secondary to acute pulmonary embolism. 4. Echocardiogram revealing no significant right heart strain, mild elevation in pulmonary artery pressure, suspected pulmonary embolism was not acute, but subacute, the patient remained hemodynamically stable throughout her stay. 5. The patient at risk for fall with subsequent complications of utilizing anticoagulation. 6. Non-ST segment elevation myocardial infarction, elevated troponin level. 06/21 Impression: 1. Infrarenal permanent IVC filter placement as described Plan . SPOKE WITH I AM LEANING TOWARDS NO ANITCOUGULATION OUTPT PT AT RISK FOR FALL D/W CARD YESTERDAY 1. S/P IVC filter. 2. OK TO TRANSFER OUT OF ICU 3. The patient will remain bed rest for now. 4. Follow up Cardiology's input. MARC MOODY MD Jun 21, 2018 12:16
[2018-06-21] MEDS: hydrOXYzine 10 MG TABLET PO SCH (14:50)
[2018-06-21] MEDS: MULTIVITAMIN with MINERAL TABLET. PO SCH (14:51)
[2018-06-21] MEDS: ALPRAZolam 0.25 MG TABLET PO PRN (14:51)
[2018-06-21] MEDS: MICONAZOLE NITRATE 2% TOPICAL CREAM 28GM TUBE. TP SCH ×2 (14:51→21:00)
[2018-06-21] MEDS: ASPIRIN ENTERIC COATED 81 MG TABLET.DR. PO SCH (14:51)
[2018-06-21] MEDS: DONEPEZIL HCL 10 MG TABLET. PO SCH ×2 (14:51→21:19)
[2018-06-21] MEDS: HYDROcodone/APAP 5/325MG 1 TAB TABLET PO PRN (17:14)
[2018-06-21] MEDS ORDERED: IPRATRPIUM/ALBUTEROL 0.5/2.5MG 3 ML NEBU. NEB PRN (17:30)
[2018-06-21] MEDS: SERTRALINE 50 MG TABLET. PO SCH (21:19)
[2018-06-21] MEDS: ATORVASTATIN CALCIUM 20 MG TABLET PO SCH (21:25)
[2018-06-22] VITALS (7 sets, daily range): BP systolic 127–145; BP diastolic 65–76
[2018-06-22 03:36] LABS: BASO % 0 % (0-3); EOS # 0.2 x10^3/uL (0.0-0.7); EOS % 3 % (0-3); HEMATOCRIT 27.6 % (36.0-47.0); HEMOGLOBIN 9.6 g/dL (12.0-15.5); LYMPH # 0.8 x10^3/uL (1.0-4.8); LYMPH % 12 % (24-48); MEAN CORPUSCULAR HEMOGLOBIN 31 pg (25-35); MEAN CORPUSCULAR HGB CONC 35 g/dL (31-37); MEAN CORPUSCULAR VOLUME 90 fL (79-100); MONO # 0.4 x10^3/uL (0.0-1.1); MONO % 6 % (0-9); NEUT # 5.4 x10^3uL (1.8-7.7); NEUT % 79 % (31-73); PLATELET COUNT 120 x10^3/uL (140-400); RED BLOOD COUNT 3.08 x10^6/uL (3.50-5.40); RED CELL DISTRIBUTION WIDTH 13.3 % (11.5-14.5); WHITE BLOOD COUNT 6.9 x10^3/uL (4.0-11.0)
[2018-06-22 03:48] LABS: CALCIUM 8.3 mg/dL (8.5-10.1); CREATININE 0.6 mg/dL (0.6-1.0); GFR 97.7; POTASSIUM 3.3 mmol/L (3.5-5.1)
--- NOTE | 2018-06-22 07:53 | PDOC ---
PULMONARY PROGRESS NOTES Subjective PT NOT MORE SOA Vitals Vital Signs Date Time Temp Pulse Resp B/P (MAP) Pulse Ox O2 Delivery O2 Flow Rate FiO2 06/22/18 07:48 99.1 86 18 128/66 (86) 97 Nasal Cannula 2.0 99.1 ROS: No Nausea, No Chest Pain, No Abdominal Pain, No Increase Cough General: Alert Lungs: Clear Cardiovascular: S1, S2 Abdomen: Soft Neuro Exam: Alert Extremities: No Edema Skin: Warm Labs Laboratory Tests Test 06/20/18 11:50 06/20/18 15:30 06/21/18 06:23 06/21/18 08:11 Heparin Anti-Xa Act, Unfractionated 0.34 IU/mL (0.30-0.70) 0.18 IU/mL (0.30-0.70) Stool Occult Blood Negative (NEG) White Blood Count 7.9 x10^3/uL (4.0-11.0) Red Blood Count 3.32 x10^6/uL (3.50-5.40) Hemoglobin 10.3 g/dL (12.0-15.5) Hematocrit 30.0 % (36.0-47.0) Mean Corpuscular Volume 90 fL (79-100) Mean Corpuscular Hemoglobin 31 pg (25-35) Mean Corpuscular Hemoglobin Concent 34 g/dL (31-37) Red Cell Distribution Width 13.8 % (11.5-14.5) Platelet Count 135 x10^3/uL (140-400) Neutrophils (%) (Auto) 83 % (31-73) Lymphocytes (%) (Auto) 8 % (24-48) Monocytes (%) (Auto) 7 % (0-9) Eosinophils (%) (Auto) 2 % (0-3) Basophils (%) (Auto) 1 % (0-3) Neutrophils # (Auto) 6.6 x10^3uL (1.8-7.7) Lymphocytes # (Auto) 0.6 x10^3/uL (1.0-4.8) Monocytes # (Auto) 0.6 x10^3/uL (0.0-1.1) Eosinophils # (Auto) 0.1 x10^3/uL (0.0-0.7) Basophils # (Auto) 0.0 x10^3/uL (0.0-0.2) Sodium Level 144 mmol/L (136-145) Potassium Level 3.6 mmol/L (3.5-5.1) Chloride Level 111 mmol/L (98-107) Carbon Dioxide Level 27 mmol/L (21-32) Anion Gap 6 (6-14) Blood Urea Nitrogen 9 mg/dL (7-20) Creatinine 0.7 mg/dL (0.6-1.0) Estimated GFR (Cockcroft-Gault) 81.8 Glucose Level 113 mg/dL (70-99) Calcium Level 8.0 mg/dL (8.5-10.1) Prothrombin Time 14.7 SEC (11.7-14.0) Prothromb Time International Ratio 1.2 (0.8-1.1) Activated Partial Thromboplast Time 60 SEC (24-38) Test 06/21/18 21:00 06/22/18 03:00 Heparin Anti-Xa Act, Unfractionated 0.12 IU/mL (0.30-0.70) 0.37 IU/mL (0.30-0.70) White Blood Count 6.9 x10^3/uL (4.0-11.0) Red Blood Count 3.08 x10^6/uL (3.50-5.40) Hemoglobin 9.6 g/dL (12.0-15.5) Hematocrit 27.6 % (36.0-47.0) Mean Corpuscular Volume 90 fL (79-100) Mean Corpuscular Hemoglobin 31 pg (25-35) Mean Corpuscular Hemoglobin Concent 35 g/dL (31-37) Red Cell Distribution Width 13.3 % (11.5-14.5) Platelet Count 120 x10^3/uL (140-400) Neutrophils (%) (Auto) 79 % (31-73) Lymphocytes (%) (Auto) 12 % (24-48) Monocytes (%) (Auto) 6 % (0-9) Eosinophils (%) (Auto) 3 % (0-3) Basophils (%) (Auto) 0 % (0-3) Neutrophils # (Auto) 5.4 x10^3uL (1.8-7.7) Lymphocytes # (Auto) 0.8 x10^3/uL (1.0-4.8) Monocytes # (Auto) 0.4 x10^3/uL (0.0-1.1) Eosinophils # (Auto) 0.2 x10^3/uL (0.0-0.7) Basophils # (Auto) 0.0 x10^3/uL (0.0-0.2) Sodium Level 145 mmol/L (136-145) Potassium Level 3.3 mmol/L (3.5-5.1) Chloride Level 111 mmol/L (98-107) Carbon Dioxide Level 27 mmol/L (21-32) Anion Gap 7 (6-14) Blood Urea Nitrogen 4 mg/dL (7-20) Creatinine 0.6 mg/dL (0.6-1.0) Estimated GFR (Cockcroft-Gault) 97.7 Glucose Level 104 mg/dL (70-99) Calcium Level 8.3 mg/dL (8.5-10.1) Laboratory Tests Test 06/21/18 08:11 06/21/18 21:00 06/22/18 03:00 Prothrombin Time 14.7 SEC (11.7-14.0) Prothromb Time International Ratio 1.2 (0.8-1.1) Activated Partial Thromboplast Time 60 SEC (24-38) Heparin Anti-Xa Act, Unfractionated 0.12 IU/mL (0.30-0.70) 0.37 IU/mL (0.30-0.70) White Blood Count 6.9 x10^3/uL (4.0-11.0) Red Blood Count 3.08 x10^6/uL (3.50-5.40) Hemoglobin 9.6 g/dL (12.0-15.5) Hematocrit 27.6 % (36.0-47.0) Mean Corpuscular Volume 90 fL (79-100) Mean Corpuscular Hemoglobin 31 pg (25-35) Mean Corpuscular Hemoglobin Concent 35 g/dL (31-37) Red Cell Distribution Width 13.3 % (11.5-14.5) Platelet Count 120 x10^3/uL (140-400) Neutrophils (%) (Auto) 79 % (31-73) Lymphocytes (%) (Auto) 12 % (24-48) Monocytes (%) (Auto) 6 % (0-9) Eosinophils (%) (Auto) 3 % (0-3) Basophils (%) (Auto) 0 % (0-3) Neutrophils # (Auto) 5.4 x10^3uL (1.8-7.7) Lymphocytes # (Auto) 0.8 x10^3/uL (1.0-4.8) Monocytes # (Auto) 0.4 x10^3/uL (0.0-1.1) Eosinophils # (Auto) 0.2 x10^3/uL (0.0-0.7) Basophils # (Auto) 0.0 x10^3/uL (0.0-0.2) Sodium Level 145 mmol/L (136-145) Potassium Level 3.3 mmol/L (3.5-5.1) Chloride Level 111 mmol/L (98-107) Carbon Dioxide Level 27 mmol/L (21-32) Anion Gap 7 (6-14) Blood Urea Nitrogen 4 mg/dL (7-20) Creatinine 0.6 mg/dL (0.6-1.0) Estimated GFR (Cockcroft-Gault) 97.7 Glucose Level 104 mg/dL (70-99) Calcium Level 8.3 mg/dL (8.5-10.1) Medications Active Scripts Medications Dose Route/Sig Max Daily Dose Days Date Category Centrum Complete Multivit Tab (Multivitamin/Iron/Folic Acid) 1 Each Tablet 1 Each PO DAILY 06/20/18 Reported Hydroxyzine Hcl 10 Mg/5 Ml Syrup 10 Mg PO HS PRN 06/20/18 Reported Zoloft (Sertraline Hcl) 100 Mg Tablet 100 Mg PO HS 06/20/18 Reported Zoloft (Sertraline Hcl) 50 Mg Tablet 50 Mg PO HS 06/20/18 Reported Aricept (Donepezil Hcl) 23 Mg Tablet 23 Mg PO HS 06/20/18 Reported Hydroxyzine Hcl 10 Mg/5 Ml Syrup 10 Mg PO DAILY 06/19/18 Reported Impression . IMPRESSION: 1. Acute pulmonary embolism. 2. Acute respiratory distress secondary to above. 3. Recent near syncopal episode secondary to acute pulmonary embolism. 4. Echocardiogram revealing no significant right heart strain, mild elevation in pulmonary artery pressure, suspected pulmonary embolism was not acute, but subacute, the patient remained hemodynamically stable throughout her stay. 5. The patient at risk for fall with subsequent complications of utilizing anticoagulation. 6. Non-ST segment elevation myocardial infarction, elevated troponin level. 06/21 Impression: 1. Infrarenal permanent IVC filter placement as described Plan . SPOKE WITH I AM LEANING TOWARDS NO ANITCOUGULATION OUTPT PT AT RISK FOR FALL D/W CARD YESTERDAY 1. S/P IVC filter. 2. OK TO TRANSFER OUT OF ICU 3. The patient will remain bed rest for now. 4. Follow up Cardiology's input. MARC MOODY MD Jun 22, 2018 07:53
[2018-06-22] MEDS: hydrOXYzine 10 MG TABLET PO SCH (09:48)
[2018-06-22] MEDS: ASPIRIN ENTERIC COATED 81 MG TABLET.DR. PO SCH (09:49)
[2018-06-22] MEDS: DONEPEZIL HCL 10 MG TABLET. PO SCH ×2 (09:49→20:29)
[2018-06-22] MEDS: MULTIVITAMIN with MINERAL TABLET. PO SCH (09:49)
[2018-06-22] MEDS: MICONAZOLE NITRATE 2% TOPICAL CREAM 28GM TUBE. TP SCH ×2 (09:53→20:29)
[2018-06-22] MEDS: IV NORMAL SALINE 1000ML BAG 1,000 ML IV SCH (09:56)
[2018-06-22] MEDS: ANTI-COAG MONITOR BY PHARMACY. MC PRN (11:59)
--- NOTE | 2018-06-22 13:08 | PDOC ---
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 Breathing a bit better but still tachypneic Daughter at bedside and have updated and provided copies of the ultrasound, IVC filter and echocardiogram PA pressures are normal at 24 Social work Fide has gotten in touch with the daughter,-they are agreeable to SNU Plan: Continue heparin drip thru weekend novel OAC on discharge SNU on discharge Would keep Marie - very weak BEd rest advised Nothing by mouth for now Shift ProcalAmine for more electrolytes/calories Full code for now Discussed with daughter at bedside NO nguyen, NPO status might just be transient - dw dtr Vitals Vitals Vital Signs Date Time Temp Pulse Resp B/P (MAP) Pulse Ox O2 Delivery O2 Flow Rate FiO2 06/22/18 11:37 97.8 94 19 127/65 (85) 98 Nasal Cannula 2.0 97.8 Physical Exam General: Alert, Oriented X3, Cooperative, No acute distress, mild distress, Other (tachypneic) Heart: Regular rate (SR without ectopies), Other (2/6 systolic murmur to LLS border, tachy ) Lungs: Clear Abdomen: Normal bowel sounds, Soft, No tenderness Extremities: No cyanosis, No edema Skin: No rashes, No breakdown, No significant lesion Labs LABS Laboratory Tests Test 06/21/18 21:00 06/22/18 03:00 06/22/18 09:10 Heparin Anti-Xa Act, Unfractionated 0.12 IU/mL (0.30-0.70) 0.37 IU/mL (0.30-0.70) 0.43 IU/mL (0.30-0.70) White Blood Count 6.9 x10^3/uL (4.0-11.0) Red Blood Count 3.08 x10^6/uL (3.50-5.40) Hemoglobin 9.6 g/dL (12.0-15.5) Hematocrit 27.6 % (36.0-47.0) Mean Corpuscular Volume 90 fL (79-100) Mean Corpuscular Hemoglobin 31 pg (25-35) Mean Corpuscular Hemoglobin Concent 35 g/dL (31-37) Red Cell Distribution Width 13.3 % (11.5-14.5) Platelet Count 120 x10^3/uL (140-400) Neutrophils (%) (Auto) 79 % (31-73) Lymphocytes (%) (Auto) 12 % (24-48) Monocytes (%) (Auto) 6 % (0-9) Eosinophils (%) (Auto) 3 % (0-3) Basophils (%) (Auto) 0 % (0-3) Neutrophils # (Auto) 5.4 x10^3uL (1.8-7.7) Lymphocytes # (Auto) 0.8 x10^3/uL (1.0-4.8) Monocytes # (Auto) 0.4 x10^3/uL (0.0-1.1) Eosinophils # (Auto) 0.2 x10^3/uL (0.0-0.7) Basophils # (Auto) 0.0 x10^3/uL (0.0-0.2) Sodium Level 145 mmol/L (136-145) Potassium Level 3.3 mmol/L (3.5-5.1) Chloride Level 111 mmol/L (98-107) Carbon Dioxide Level 27 mmol/L (21-32) Anion Gap 7 (6-14) Blood Urea Nitrogen 4 mg/dL (7-20) Creatinine 0.6 mg/dL (0.6-1.0) Estimated GFR (Cockcroft-Gault) 97.7 Glucose Level 104 mg/dL (70-99) Calcium Level 8.3 mg/dL (8.5-10.1) Review of Systems Review of Systems SOA, tachypneic, weak, otherwise rest of 14 point systems reviewed negative Comment Review of Relevant I have reviewed the following items gal (where applicable) has been applied. Labs Laboratory Tests Test 06/20/18 15:30 06/21/18 06:23 06/21/18 08:11 06/21/18 21:00 Stool Occult Blood Negative (NEG) White Blood Count 7.9 x10^3/uL (4.0-11.0) Red Blood Count 3.32 x10^6/uL (3.50-5.40) Hemoglobin 10.3 g/dL (12.0-15.5) Hematocrit 30.0 % (36.0-47.0) Mean Corpuscular Volume 90 fL (79-100) Mean Corpuscular Hemoglobin 31 pg (25-35) Mean Corpuscular Hemoglobin Concent 34 g/dL (31-37) Red Cell Distribution Width 13.8 % (11.5-14.5) Platelet Count 135 x10^3/uL (140-400) Neutrophils (%) (Auto) 83 % (31-73) Lymphocytes (%) (Auto) 8 % (24-48) Monocytes (%) (Auto) 7 % (0-9) Eosinophils (%) (Auto) 2 % (0-3) Basophils (%) (Auto) 1 % (0-3) Neutrophils # (Auto) 6.6 x10^3uL (1.8-7.7) Lymphocytes # (Auto) 0.6 x10^3/uL (1.0-4.8) Monocytes # (Auto) 0.6 x10^3/uL (0.0-1.1) Eosinophils # (Auto) 0.1 x10^3/uL (0.0-0.7) Basophils # (Auto) 0.0 x10^3/uL (0.0-0.2) Heparin Anti-Xa Act, Unfractionated 0.18 IU/mL (0.30-0.70) 0.12 IU/mL (0.30-0.70) Sodium Level 144 mmol/L (136-145) Potassium Level 3.6 mmol/L (3.5-5.1) Chloride Level 111 mmol/L (98-107) Carbon Dioxide Level 27 mmol/L (21-32) Anion Gap 6 (6-14) Blood Urea Nitrogen 9 mg/dL (7-20) Creatinine 0.7 mg/dL (0.6-1.0) Estimated GFR (Cockcroft-Gault) 81.8 Glucose Level 113 mg/dL (70-99) Calcium Level 8.0 mg/dL (8.5-10.1) Prothrombin Time 14.7 SEC (11.7-14.0) Prothromb Time International Ratio 1.2 (0.8-1.1) Activated Partial Thromboplast Time 60 SEC (24-38) Test 06/22/18 03:00 06/22/18 09:10 White Blood Count 6.9 x10^3/uL (4.0-11.0) Red Blood Count 3.08 x10^6/uL (3.50-5.40) Hemoglobin 9.6 g/dL (12.0-15.5) Hematocrit 27.6 % (36.0-47.0) Mean Corpuscular Volume 90 fL (79-100) Mean Corpuscular Hemoglobin 31 pg (25-35) Mean Corpuscular Hemoglobin Concent 35 g/dL (31-37) Red Cell Distribution Width 13.3 % (11.5-14.5) Platelet Count 120 x10^3/uL (140-400) Neutrophils (%) (Auto) 79 % (31-73) Lymphocytes (%) (Auto) 12 % (24-48) Monocytes (%) (Auto) 6 % (0-9) Eosinophils (%) (Auto) 3 % (0-3) Basophils (%) (Auto) 0 % (0-3) Neutrophils # (Auto) 5.4 x10^3uL (1.8-7.7) Lymphocytes # (Auto) 0.8 x10^3/uL (1.0-4.8) Monocytes # (Auto) 0.4 x10^3/uL (0.0-1.1) Eosinophils # (Auto) 0.2 x10^3/uL (0.0-0.7) Basophils # (Auto) 0.0 x10^3/uL (0.0-0.2) Heparin Anti-Xa Act, Unfractionated 0.37 IU/mL (0.30-0.70) 0.43 IU/mL (0.30-0.70) Sodium Level 145 mmol/L (136-145) Potassium Level 3.3 mmol/L (3.5-5.1) Chloride Level 111 mmol/L (98-107) Carbon Dioxide Level 27 mmol/L (21-32) Anion Gap 7 (6-14) Blood Urea Nitrogen 4 mg/dL (7-20) Creatinine 0.6 mg/dL (0.6-1.0) Estimated GFR (Cockcroft-Gault) 97.7 Glucose Level 104 mg/dL (70-99) Calcium Level 8.3 mg/dL (8.5-10.1) Laboratory Tests Test 06/21/18 21:00 06/22/18 03:00 06/22/18 09:10 Heparin Anti-Xa Act, Unfractionated 0.12 IU/mL (0.30-0.70) 0.37 IU/mL (0.30-0.70) 0.43 IU/mL (0.30-0.70) White Blood Count 6.9 x10^3/uL (4.0-11.0) Red Blood Count 3.08 x10^6/uL (3.50-5.40) Hemoglobin 9.6 g/dL (12.0-15.5) Hematocrit 27.6 % (36.0-47.0) Mean Corpuscular Volume 90 fL (79-100) Mean Corpuscular Hemoglobin 31 pg (25-35) Mean Corpuscular Hemoglobin Concent 35 g/dL (31-37) Red Cell Distribution Width 13.3 % (11.5-14.5) Platelet Count 120 x10^3/uL (140-400) Neutrophils (%) (Auto) 79 % (31-73) Lymphocytes (%) (Auto) 12 % (24-48) Monocytes (%) (Auto) 6 % (0-9) Eosinophils (%) (Auto) 3 % (0-3) Basophils (%) (Auto) 0 % (0-3) Neutrophils # (Auto) 5.4 x10^3uL (1.8-7.7) Lymphocytes # (Auto) 0.8 x10^3/uL (1.0-4.8) Monocytes # (Auto) 0.4 x10^3/uL (0.0-1.1) Eosinophils # (Auto) 0.2 x10^3/uL (0.0-0.7) Basophils # (Auto) 0.0 x10^3/uL (0.0-0.2) Sodium Level 145 mmol/L (136-145) Potassium Level 3.3 mmol/L (3.5-5.1) Chloride Level 111 mmol/L (98-107) Carbon Dioxide Level 27 mmol/L (21-32) Anion Gap 7 (6-14) Blood Urea Nitrogen 4 mg/dL (7-20) Creatinine 0.6 mg/dL (0.6-1.0) Estimated GFR (Cockcroft-Gault) 97.7 Glucose Level 104 mg/dL (70-99) Calcium Level 8.3 mg/dL (8.5-10.1) Microbiology 06/20/18 Blood Culture - Preliminary, Resulted NO GROWTH AFTER 2 DAYS Medications Current Medications Ondansetron HCl (Zofran) 4 mg PRN Q6HRS PRN IV NAUSEA/VOMITING; Start at 18:15; Stop 06/19/18 at 19:01; Status DC Sodium Chloride (Normal Saline Flush) 3 ml QSHIFT PRN IV AFTER MEDS AND BLOOD DRAWS; Start 06/19/18 at 18:15 Albuterol/ Ipratropium (Duoneb) 3 ml RTQID NEB Last administered on 06/21/18at 16:38; Start 06/19/18 at 20:00; Stop 06/21/18 at 17:28; Status DC Guaifenesin (Robitussin Dm) 10 ml PRN Q6HRS PRN PO COUGH; Start 06/19/18 at 18 :30 Donepezil HCl (Aricept) 5 mg QHS PO Last administered on 06/20/18at 20:36; Start 06/19/18 at 21:00; Stop 06/21/18 at 08:10; Status DC Sertraline HCl (Zoloft) 25 mg QHS PO Last administered on 06/19/18at 20:35; Start 06/19/18 at 21:00; Stop 06/20/18 at 11:33; Status DC Alprazolam (Xanax) 0.25 mg PRN Q8HRS PRN PO ANXIETY/AGITATION 2ND CHOICE Last administered on 06/21/18at 14:51; Start 06/19/18 at 18:30 Alprazolam (Xanax) 0.25 mg 1X ONCE PO Last administered on 06/19/18at 20:27; Start 06/19/18 at 18:30; Stop 06/19/18 at 18:34; Status DC Hydroxyzine HCl (Atarax) 10 mg PRN Q6HRS PRN PO ITCHING; Start 06/19/18 at 18: 30 Multivitamins (Thera M Plus) 1 tab DAILY PO Last administered on 06/22/18at 09: 49; Start 06/20/18 at 09:00 Heparin Sodium (Porcine) (Heparin Sodium) 4,160 unit 1X ONCE IV Last administered on 06/19/18at 20:27; Start 06/19/18 at 18:30; Stop 06/19/18 at 18 :34; Status DC Heparin Sodium/ Dextrose 500 ml @ 16.64 mls/ hr CONT PRN IV SEE I/O RECORD Last administered on 06/21/18at 01:58; Start 06/19/18 at 18:30 Heparin Sodium (Porcine) (Heparin Sodium) 1,560 unit PRN Q6HRS PRN IV FOR UFH LEVEL LESS THAN 0.2 Last administered on 06/21/18at 22:24; Start 06/19/18 at 18 :30 Heparin Sodium (Porcine) (Heparin Sodium) 780 unit PRN Q6HRS PRN IV FOR UFH LEVEL 0.2 - 0.29; Start 06/19/18 at 18:30 Acetaminophen/ Hydrocodone Bitart (Lortab 5/325) 1 tab PRN Q4HRS PRN PO MODERATE-SEVERE PAIN Last administered on 06/21/18at 17:14; Start 06/19/18 at 18:30 Acetaminophen (Tylenol) 500 mg PRN Q6HRS PRN PO MILD PAIN / TEMP; Start at 18:30 Ondansetron HCl (Zofran) 4 mg PRN Q6HRS PRN IV NAUSEA/VOMITING Last administered on 06/20/18at 12:09; Start 06/19/18 at 18:30 Ondansetron HCl (Zofran Odt) 4 mg PRN Q6HRS PRN PO NAUSEA/VOMITING; Start at 18:30 Heparin Sodium (Porcine) (Heparin Sodium) 4,150 unit 1X ONCE IV ; Start at 18:30; Stop 06/19/18 at 18:31; Status UNV Heparin Sodium/ Dextrose 500 ml @ 0 mls/hr CONT PRN IV SEE I/O RECORD; Start 06/19/18 at 18:30; Status UNV Heparin Sodium (Porcine) (Heparin Sodium) 1,550 unit PRN Q6HRS PRN IV FOR UFH LEVEL LESS THAN 0.2; Start 06/19/18 at 18:30; Status UNV Heparin Sodium (Porcine) (Heparin Sodium) 800 unit PRN Q6HRS PRN IV FOR UFH LEVEL 0.2 - 0.29; Start 06/19/18 at 18:30; Status UNV Lorazepam (Ativan) 0.5 mg PRN Q8HRS PRN PO ANXIETY/AGITATION 1ST CHOICE Last administered on 06/20/18at 20:04; Start 06/19/18 at 19:00 Sodium Chloride 1,000 ml @ 80 mls/hr [id number] IV Last administered on at 09:56; Start 06/19/18 at 20:45 Influenza Virus Vaccine (Afluria Trivalent [id number] Syringe) 0.5 ml ONCE ONCE VAX IM ; Start 06/20/18 at 09:00; Stop 06/20/18 at 09:01; Status DC Info (Anti-Coagulation Monitoring By Pharmacy) 1 each PRN DAILY PRN MC SEE COMMENTS Last administered on 06/22/18at 11:59; Start 06/20/18 at 09:00 Aspirin (Ecotrin) 81 mg [id number] PO Last administered on 06/22/18at 09:49; Start 06/20/18 at 12:00 Sertraline HCl (Zoloft) 150 mg HS PO Last administered on 06/21/18at 21:19; Start 06/20/18 at 21:00 Donepezil HCl (Aricept) 10 mg BID PO Last administered on 06/22/18at 09:49; Start 06/20/18 at 12:00 Hydroxyzine HCl (Atarax) 10 mg DAILY PO Last administered on 06/22/18at 09:48; Start 06/20/18 at 12:00 Hydroxyzine HCl (Atarax) 10 mg QHS PRN PO ANXIETY/AGITATION; Start 06/20/18 at 11:45 Non-Formulary Medication (Multivitamin/ Iron/Folic Acid (Centrum Complete Multivit Tab)) 1 each DAILY PO ; Start 06/21/18 at 09:00; Status UNV Non-Formulary Medication (Sertraline Hcl (Zoloft)) 100 mg HS PO ; Start at 21:00; Status UNV Atorvastatin Calcium (Lipitor) 20 mg QHS PO Last administered on 06/21/18at 21: 25; Start 06/20/18 at 21:00 Sodium Chloride 500 ml @ 500 mls/hr 1X ONCE IV Last administered on at 00:37; Start 06/21/18 at 01:00; Stop 06/21/18 at 01:59; Status DC Lidocaine/Sodium Bicarbonate (Buffered Lidocaine 1%) 3 ml STK-MED ONCE .ROUTE ; Start 06/21/18 at 09:32; Stop 06/21/18 at 09:33; Status DC Iohexol (Omnipaque 240 Mg/ml) 50 ml STK-MED ONCE .ROUTE ; Start 06/21/18 at 09: 32; Stop 06/21/18 at 09:33; Status DC Lidocaine/Sodium Bicarbonate (Buffered Lidocaine 1%) 3 ml 1X ONCE IJ Last administered on 06/21/18at 10:16; Start 06/21/18 at 10:15; Stop 06/21/18 at 10 :16; Status DC Iohexol (Omnipaque 240 Mg/ml) 50 ml 1X ONCE IV Last administered on at 10:17; Start 06/21/18 at 10:15; Stop 06/21/18 at 10:16; Status DC Miconazole Nitrate (Monistat-Derm) 1 joaquim BID TP Last administered on at 09:53; Start 06/21/18 at 14:00 Albuterol/ Ipratropium (Duoneb) 3 ml RTQID PRN NEB SHORTNESS OF BREATH Last administered on 06/22/18at 07:52; Start 06/21/18 at 17:30 Influenza Virus Vaccine (Afluria Trivalent [id number] Syringe) 0.5 ml ONCE ONCE VAX IM Last administered on 06/21/18at 21:23; Start 06/21/18 at 21:00; Stop 06/21/18 at 21:01; Status DC Active Scripts Active Reported Centrum Complete Multivit Tab (Multivitamin/Iron/Folic Acid) 1 Each Tablet 1 Each PO DAILY Hydroxyzine Hcl 10 Mg/5 Ml Syrup 10 Mg PO HS PRN Zoloft (Sertraline Hcl) 100 Mg Tablet 100 Mg PO HS Zoloft (Sertraline Hcl) 50 Mg Tablet 50 Mg PO HS Aricept (Donepezil Hcl) 23 Mg Tablet 23 Mg PO HS Hydroxyzine Hcl 10 Mg/5 Ml Syrup 10 Mg PO DAILY Vitals/I & O Vital Sign - Last 24 Hours 06/21/18 06/21/18 06/21/18 06/21/18 13:11 16:00 16:40 20:00 Temp 98.1 98.1 Pulse 72 Resp 22 B/P (MAP) 143/71 (95) Pulse Ox 99 98 99 O2 Delivery Nasal Cannula Nasal Cannula Nasal Cannula Nasal Cannula O2 Flow Rate 2.0 2.0 2.0 2.0 06/21/18 06/22/18 06/22/18 06/22/18 20:48 00:02 00:07 03:45 Temp 98.6 99.0 98.8 98.6 99.0 98.8 Pulse 58 50 66 Resp 18 18 16 18 B/P (MAP) 117/70 (86) 134/73 (93) 131/76 (94) Pulse Ox 96 96 96 O2 Delivery Nasal Cannula Nasal Cannula Nasal Cannula O2 Flow Rate 2.0 2.0 2.0 06/22/18 06/22/18 06/22/18 06/22/18 07:48 07:52 08:00 11:37 Temp 99.1 97.8 99.1 97.8 Pulse 86 94 Resp 18 19 B/P (MAP) 128/66 (86) 127/65 (85) Pulse Ox 97 98 98 O2 Delivery Nasal Cannula Nasal Cannula Nasal Cannula Nasal Cannula O2 Flow Rate 2.0 2.0 2.0 2.0 Intake and Output 06/21/18 06/21/18 06/22/18 15:00 23:00 07:00 Intake Total 935 ml 0 ml Output Total 250 ml 200 ml 800 ml Balance -250 ml 735 ml -800 ml Nutrition Consultation Dietary Evaluation: Recommendations by RD: Increase Calorie Intake, Protein supplementation Comments: REC advance diet to GI soft/regular w/textures per ANODIZE MACHINE OPERATOR REC Ensure TID Expected Outcomes/Goals: PO intake to meet >75% est needs Malnutrition Findings: Body Fat Depletion (Non Severe: Mild Depletion Weight Status: Underweight WILLIAM PEREZ MD Jun 22, 2018 13:08
[2018-06-22] MEDS: AMINO AC 3%/ELECTROLYTE/GLYCER 1,000 ML IV SCH (15:13)
[2018-06-22] MEDS: HEPARIN 25,000UTS/500ML PREMIX 500 ML IV PRN (15:15)
[2018-06-22] MEDS: ALPRAZolam 0.25 MG TABLET PO PRN (15:52)
[2018-06-22] MEDS: ATORVASTATIN CALCIUM 20 MG TABLET PO SCH (20:28)
[2018-06-22] MEDS: SERTRALINE 50 MG TABLET. PO SCH (20:29)
[2018-06-22] MEDS: LORazepam 0.5 MG TABLET PO PRN (20:29)
[2018-06-23] MEDS: AMINO AC 3%/ELECTROLYTE/GLYCER 1,000 ML IV SCH ×2 (02:56→14:15)
[2018-06-23 03:00] VITALS: BP 142/71
[2018-06-23 06:29] LABS: BASO % 0 % (0-3); EOS # 0.2 x10^3/uL (0.0-0.7); EOS % 2 % (0-3); HEMATOCRIT 30.3 % (36.0-47.0); HEMOGLOBIN 10.5 g/dL (12.0-15.5); LYMPH # 0.5 x10^3/uL (1.0-4.8); LYMPH % 5 % (24-48); MEAN CORPUSCULAR HEMOGLOBIN 31 pg (25-35); MEAN CORPUSCULAR HGB CONC 35 g/dL (31-37); MEAN CORPUSCULAR VOLUME 89 fL (79-100); MONO # 0.6 x10^3/uL (0.0-1.1); MONO % 6 % (0-9); NEUT # 8.5 x10^3uL (1.8-7.7); NEUT % 87 % (31-73); PLATELET COUNT 161 x10^3/uL (140-400); RED BLOOD COUNT 3.41 x10^6/uL (3.50-5.40); RED CELL DISTRIBUTION WIDTH 13.1 % (11.5-14.5); WHITE BLOOD COUNT 9.9 x10^3/uL (4.0-11.0)
[2018-06-23 06:36] LABS: CALCIUM 8.1 mg/dL (8.5-10.1); CREATININE 0.6 mg/dL (0.6-1.0); GFR 97.7; POTASSIUM 3.4 mmol/L (3.5-5.1)
[2018-06-23 07:56] VITALS: BP 138/79
[2018-06-23] MEDS: hydrOXYzine 10 MG TABLET PO SCH (09:58)
[2018-06-23] MEDS: MICONAZOLE NITRATE 2% TOPICAL CREAM 28GM TUBE. TP SCH ×2 (09:58→21:00)
[2018-06-23] MEDS: DONEPEZIL HCL 10 MG TABLET. PO SCH ×2 (09:58→19:50)
[2018-06-23] MEDS: MULTIVITAMIN with MINERAL TABLET. PO SCH (09:58)
[2018-06-23] MEDS: ASPIRIN ENTERIC COATED 81 MG TABLET.DR. PO SCH (09:58)
[2018-06-23 11:20] VITALS: BP 134/84
--- NOTE | 2018-06-23 11:52 | PDOC ---
PROGRESS NOTES Chief Complaint Chief Complaint Saddle PE-acute onset, first episode S/p IVC filter placement 06/21/18 BIlateral leg DVT - new/first epsidoe H/o Fall , no injuries Hypoxic respiratory failure secondary to above above Elevated Troponin in the background of saddle PE H/o dementia DYsphagia - NPO History of Present Illness History of Present Illness t/o out of ICU 06/21/18 BReathing actually better for the first time today, less tachypnea, less tachycardic Family very involved in care-very pleasant and realistic Did discuss feeding options, NG tube was not an option currently Failed swallow, I did shift ProcalAmine on Sunday Gets tired easy which is affecting swallowing (saddle PE and all) Echo - PA pressures 24 - copy given to dtr Plan: intermittent [employer]OR evaluation Continue heparin drip We'll transition to NovelOAC once recommended already by pulmonary In the meantime continue heparin drip, watch out for bleeding PT OT, high fall risk Came from home, initially very active, gardening etc. Vitals Vitals Vital Signs Date Time Temp Pulse Resp B/P (MAP) Pulse Ox O2 Delivery O2 Flow Rate FiO2 06/23/18 11:20 99.3 100 18 134/84 (101) 97 Nasal Cannula 2.0 99.3 Physical Exam General: Alert, Oriented X3, Cooperative, No acute distress, mild distress, Other (tachypneic) Heart: Regular rate (SR without ectopies), Other (2/6 systolic murmur to LLS border, tachy ) Lungs: Clear Abdomen: Normal bowel sounds, Soft, No tenderness Extremities: No cyanosis, No edema Skin: No rashes, No breakdown, No significant lesion Labs LABS Laboratory Tests Test 06/23/18 06:15 White Blood Count 9.9 x10^3/uL (4.0-11.0) Red Blood Count 3.41 x10^6/uL (3.50-5.40) Hemoglobin 10.5 g/dL (12.0-15.5) Hematocrit 30.3 % (36.0-47.0) Mean Corpuscular Volume 89 fL (79-100) Mean Corpuscular Hemoglobin 31 pg (25-35) Mean Corpuscular Hemoglobin Concent 35 g/dL (31-37) Red Cell Distribution Width 13.1 % (11.5-14.5) Platelet Count 161 x10^3/uL (140-400) Neutrophils (%) (Auto) 87 % (31-73) Lymphocytes (%) (Auto) 5 % (24-48) Monocytes (%) (Auto) 6 % (0-9) Eosinophils (%) (Auto) 2 % (0-3) Basophils (%) (Auto) 0 % (0-3) Neutrophils # (Auto) 8.5 x10^3uL (1.8-7.7) Lymphocytes # (Auto) 0.5 x10^3/uL (1.0-4.8) Monocytes # (Auto) 0.6 x10^3/uL (0.0-1.1) Eosinophils # (Auto) 0.2 x10^3/uL (0.0-0.7) Basophils # (Auto) 0.0 x10^3/uL (0.0-0.2) Heparin Anti-Xa Act, Unfractionated 0.20 IU/mL (0.30-0.70) Sodium Level 141 mmol/L (136-145) Potassium Level 3.4 mmol/L (3.5-5.1) Chloride Level 107 mmol/L (98-107) Carbon Dioxide Level 25 mmol/L (21-32) Anion Gap 9 (6-14) Blood Urea Nitrogen 6 mg/dL (7-20) Creatinine 0.6 mg/dL (0.6-1.0) Estimated GFR (Cockcroft-Gault) 97.7 Glucose Level 124 mg/dL (70-99) Calcium Level 8.1 mg/dL (8.5-10.1) Review of Systems Review of Systems weak, No further increase in SOA, no abdominal pain, no fever Comment Review of Relevant I have reviewed the following items gal (where applicable) has been applied. Labs Laboratory Tests Test 06/21/18 21:00 06/22/18 03:00 06/22/18 09:10 06/23/18 06:15 Heparin Anti-Xa Act, Unfractionated 0.12 IU/mL (0.30-0.70) 0.37 IU/mL (0.30-0.70) 0.43 IU/mL (0.30-0.70) 0.20 IU/mL (0.30-0.70) White Blood Count 6.9 x10^3/uL (4.0-11.0) 9.9 x10^3/uL (4.0-11.0) Red Blood Count 3.08 x10^6/uL (3.50-5.40) 3.41 x10^6/uL (3.50-5.40) Hemoglobin 9.6 g/dL (12.0-15.5) 10.5 g/dL (12.0-15.5) Hematocrit 27.6 % (36.0-47.0) 30.3 % (36.0-47.0) Mean Corpuscular Volume 90 fL (79-100) 89 fL (79-100) Mean Corpuscular Hemoglobin 31 pg (25-35) 31 pg (25-35) Mean Corpuscular Hemoglobin Concent 35 g/dL (31-37) 35 g/dL (31-37) Red Cell Distribution Width 13.3 % (11.5-14.5) 13.1 % (11.5-14.5) Platelet Count 120 x10^3/uL (140-400) 161 x10^3/uL (140-400) Neutrophils (%) (Auto) 79 % (31-73) 87 % (31-73) Lymphocytes (%) (Auto) 12 % (24-48) 5 % (24-48) Monocytes (%) (Auto) 6 % (0-9) 6 % (0-9) Eosinophils (%) (Auto) 3 % (0-3) 2 % (0-3) Basophils (%) (Auto) 0 % (0-3) 0 % (0-3) Neutrophils # (Auto) 5.4 x10^3uL (1.8-7.7) 8.5 x10^3uL (1.8-7.7) Lymphocytes # (Auto) 0.8 x10^3/uL (1.0-4.8) 0.5 x10^3/uL (1.0-4.8) Monocytes # (Auto) 0.4 x10^3/uL (0.0-1.1) 0.6 x10^3/uL (0.0-1.1) Eosinophils # (Auto) 0.2 x10^3/uL (0.0-0.7) 0.2 x10^3/uL (0.0-0.7) Basophils # (Auto) 0.0 x10^3/uL (0.0-0.2) 0.0 x10^3/uL (0.0-0.2) Sodium Level 145 mmol/L (136-145) 141 mmol/L (136-145) Potassium Level 3.3 mmol/L (3.5-5.1) 3.4 mmol/L (3.5-5.1) Chloride Level 111 mmol/L (98-107) 107 mmol/L (98-107) Carbon Dioxide Level 27 mmol/L (21-32) 25 mmol/L (21-32) Anion Gap 7 (6-14) 9 (6-14) Blood Urea Nitrogen 4 mg/dL (7-20) 6 mg/dL (7-20) Creatinine 0.6 mg/dL (0.6-1.0) 0.6 mg/dL (0.6-1.0) Estimated GFR (Cockcroft-Gault) 97.7 97.7 Glucose Level 104 mg/dL (70-99) 124 mg/dL (70-99) Calcium Level 8.3 mg/dL (8.5-10.1) 8.1 mg/dL (8.5-10.1) Laboratory Tests Test 06/23/18 06:15 White Blood Count 9.9 x10^3/uL (4.0-11.0) Red Blood Count 3.41 x10^6/uL (3.50-5.40) Hemoglobin 10.5 g/dL (12.0-15.5) Hematocrit 30.3 % (36.0-47.0) Mean Corpuscular Volume 89 fL (79-100) Mean Corpuscular Hemoglobin 31 pg (25-35) Mean Corpuscular Hemoglobin Concent 35 g/dL (31-37) Red Cell Distribution Width 13.1 % (11.5-14.5) Platelet Count 161 x10^3/uL (140-400) Neutrophils (%) (Auto) 87 % (31-73) Lymphocytes (%) (Auto) 5 % (24-48) Monocytes (%) (Auto) 6 % (0-9) Eosinophils (%) (Auto) 2 % (0-3) Basophils (%) (Auto) 0 % (0-3) Neutrophils # (Auto) 8.5 x10^3uL (1.8-7.7) Lymphocytes # (Auto) 0.5 x10^3/uL (1.0-4.8) Monocytes # (Auto) 0.6 x10^3/uL (0.0-1.1) Eosinophils # (Auto) 0.2 x10^3/uL (0.0-0.7) Basophils # (Auto) 0.0 x10^3/uL (0.0-0.2) Heparin Anti-Xa Act, Unfractionated 0.20 IU/mL (0.30-0.70) Sodium Level 141 mmol/L (136-145) Potassium Level 3.4 mmol/L (3.5-5.1) Chloride Level 107 mmol/L (98-107) Carbon Dioxide Level 25 mmol/L (21-32) Anion Gap 9 (6-14) Blood Urea Nitrogen 6 mg/dL (7-20) Creatinine 0.6 mg/dL (0.6-1.0) Estimated GFR (Cockcroft-Gault) 97.7 Glucose Level 124 mg/dL (70-99) Calcium Level 8.1 mg/dL (8.5-10.1) Microbiology 06/20/18 Blood Culture - Preliminary, Resulted NO GROWTH AFTER 3 DAYS Medications Current Medications Ondansetron HCl (Zofran) 4 mg PRN Q6HRS PRN IV NAUSEA/VOMITING; Start at 18:15; Stop 06/19/18 at 19:01; Status DC Sodium Chloride (Normal Saline Flush) 3 ml QSHIFT PRN IV AFTER MEDS AND BLOOD DRAWS; Start 06/19/18 at 18:15 Albuterol/ Ipratropium (Duoneb) 3 ml RTQID NEB Last administered on 06/21/18at 16:38; Start 06/19/18 at 20:00; Stop 06/21/18 at 17:28; Status DC Guaifenesin (Robitussin Dm) 10 ml PRN Q6HRS PRN PO COUGH; Start 06/19/18 at 18 :30 Donepezil HCl (Aricept) 5 mg QHS PO Last administered on 06/20/18at 20:36; Start 06/19/18 at 21:00; Stop 06/21/18 at 08:10; Status DC Sertraline HCl (Zoloft) 25 mg QHS PO Last administered on 06/19/18at 20:35; Start 06/19/18 at 21:00; Stop 06/20/18 at 11:33; Status DC Alprazolam (Xanax) 0.25 mg PRN Q8HRS PRN PO ANXIETY/AGITATION 2ND CHOICE Last administered on 06/22/18at 15:52; Start 06/19/18 at 18:30 Alprazolam (Xanax) 0.25 mg 1X ONCE PO Last administered on 06/19/18at 20:27; Start 06/19/18 at 18:30; Stop 06/19/18 at 18:34; Status DC Hydroxyzine HCl (Atarax) 10 mg PRN Q6HRS PRN PO ITCHING; Start 06/19/18 at 18: 30 Multivitamins (Thera M Plus) 1 tab DAILY PO Last administered on 06/23/18at 09: 58; Start 06/20/18 at 09:00 Heparin Sodium (Porcine) (Heparin Sodium) 4,160 unit 1X ONCE IV Last administered on 06/19/18at 20:27; Start 06/19/18 at 18:30; Stop 06/19/18 at 18 :34; Status DC Heparin Sodium/ Dextrose 500 ml @ 16.64 mls/ hr CONT PRN IV SEE I/O RECORD Last administered on 06/22/18at 15:15; Start 06/19/18 at 18:30 Heparin Sodium (Porcine) (Heparin Sodium) 1,560 unit PRN Q6HRS PRN IV FOR UFH LEVEL LESS THAN 0.2 Last administered on 06/21/18at 22:24; Start 06/19/18 at 18 :30 Heparin Sodium (Porcine) (Heparin Sodium) 780 unit PRN Q6HRS PRN IV FOR UFH LEVEL 0.2 - 0.29; Start 06/19/18 at 18:30 Acetaminophen/ Hydrocodone Bitart (Lortab 5/325) 1 tab PRN Q4HRS PRN PO MODERATE-SEVERE PAIN Last administered on 06/21/18at 17:14; Start 06/19/18 at 18:30 Acetaminophen (Tylenol) 500 mg PRN Q6HRS PRN PO MILD PAIN / TEMP; Start at 18:30 Ondansetron HCl (Zofran) 4 mg PRN Q6HRS PRN IV NAUSEA/VOMITING Last administered on 06/20/18at 12:09; Start 06/19/18 at 18:30 Ondansetron HCl (Zofran Odt) 4 mg PRN Q6HRS PRN PO NAUSEA/VOMITING Last administered on 06/23/18at 10:56; Start 06/19/18 at 18:30 Heparin Sodium (Porcine) (Heparin Sodium) 4,150 unit 1X ONCE IV ; Start at 18:30; Stop 06/19/18 at 18:31; Status UNV Heparin Sodium/ Dextrose 500 ml @ 0 mls/hr CONT PRN IV SEE I/O RECORD; Start 06/19/18 at 18:30; Status UNV Heparin Sodium (Porcine) (Heparin Sodium) 1,550 unit PRN Q6HRS PRN IV FOR UFH LEVEL LESS THAN 0.2; Start 06/19/18 at 18:30; Status UNV Heparin Sodium (Porcine) (Heparin Sodium) 800 unit PRN Q6HRS PRN IV FOR UFH LEVEL 0.2 - 0.29; Start 06/19/18 at 18:30; Status UNV Lorazepam (Ativan) 0.5 mg PRN Q8HRS PRN PO ANXIETY/AGITATION 1ST CHOICE Last administered on 06/22/18at 20:29; Start 06/19/18 at 19:00 Sodium Chloride 1,000 ml @ 80 mls/hr [id number] IV Last administered on at 09:56; Start 06/19/18 at 20:45; Stop 06/22/18 at 13:05; Status DC Influenza Virus Vaccine (Afluria Trivalent [id number] Syringe) 0.5 ml ONCE ONCE VAX IM ; Start 06/20/18 at 09:00; Stop 06/20/18 at 09:01; Status DC Info (Anti-Coagulation Monitoring By Pharmacy) 1 each PRN DAILY PRN MC SEE COMMENTS Last administered on 06/22/18at 11:59; Start 06/20/18 at 09:00 Aspirin (Ecotrin) 81 mg [id number] PO Last administered on 06/23/18at 09:58; Start 06/20/18 at 12:00 Sertraline HCl (Zoloft) 150 mg HS PO Last administered on 06/22/18at 20:29; Start 06/20/18 at 21:00 Donepezil HCl (Aricept) 10 mg BID PO Last administered on 06/23/18at 09:58; Start 06/20/18 at 12:00 Hydroxyzine HCl (Atarax) 10 mg DAILY PO Last administered on 06/23/18at 09:58; Start 06/20/18 at 12:00 Hydroxyzine HCl (Atarax) 10 mg QHS PRN PO ANXIETY/AGITATION; Start 06/20/18 at 11:45 Non-Formulary Medication (Multivitamin/ Iron/Folic Acid (Centrum Complete Multivit Tab)) 1 each DAILY PO ; Start 06/21/18 at 09:00; Status UNV Non-Formulary Medication (Sertraline Hcl (Zoloft)) 100 mg HS PO ; Start at 21:00; Status UNV Atorvastatin Calcium (Lipitor) 20 mg QHS PO Last administered on 06/22/18at 20: 28; Start 06/20/18 at 21:00 Sodium Chloride 500 ml @ 500 mls/hr 1X ONCE IV Last administered on at 00:37; Start 06/21/18 at 01:00; Stop 06/21/18 at 01:59; Status DC Lidocaine/Sodium Bicarbonate (Buffered Lidocaine 1%) 3 ml STK-MED ONCE .ROUTE ; Start 06/21/18 at 09:32; Stop 06/21/18 at 09:33; Status DC Iohexol (Omnipaque 240 Mg/ml) 50 ml STK-MED ONCE .ROUTE ; Start 06/21/18 at 09: 32; Stop 06/21/18 at 09:33; Status DC Lidocaine/Sodium Bicarbonate (Buffered Lidocaine 1%) 3 ml 1X ONCE IJ Last administered on 06/21/18at 10:16; Start 06/21/18 at 10:15; Stop 06/21/18 at 10 :16; Status DC Iohexol (Omnipaque 240 Mg/ml) 50 ml 1X ONCE IV Last administered on at 10:17; Start 06/21/18 at 10:15; Stop 06/21/18 at 10:16; Status DC Miconazole Nitrate (Monistat-Derm) 1 joaquim BID TP Last administered on at 09:58; Start 06/21/18 at 14:00 Albuterol/ Ipratropium (Duoneb) 3 ml RTQID PRN NEB SHORTNESS OF BREATH Last administered on 06/22/18at 07:52; Start 06/21/18 at 17:30 Influenza Virus Vaccine (Afluria Trivalent [id number] Syringe) 0.5 ml ONCE ONCE VAX IM Last administered on 06/21/18at 21:23; Start 06/21/18 at 21:00; Stop 06/21/18 at 21:01; Status DC Amino Acids/ Glycerin/ Electrolytes 1,000 ml @ 80 mls/hr [id number] IV Last administered on 06/23/18at 02:56; Start 06/22/18 at 13:15 Active Scripts Active Reported Centrum Complete Multivit Tab (Multivitamin/Iron/Folic Acid) 1 Each Tablet 1 Each PO DAILY Hydroxyzine Hcl 10 Mg/5 Ml Syrup 10 Mg PO HS PRN Zoloft (Sertraline Hcl) 100 Mg Tablet 100 Mg PO HS Zoloft (Sertraline Hcl) 50 Mg Tablet 50 Mg PO HS Aricept (Donepezil Hcl) 23 Mg Tablet 23 Mg PO HS Hydroxyzine Hcl 10 Mg/5 Ml Syrup 10 Mg PO DAILY Vitals/I & O Vital Sign - Last 24 Hours 06/22/18 06/22/18 06/22/18 06/22/18 15:06 19:56 20:00 23:00 Temp 99.3 98.3 98.1 99.3 98.3 98.1 Pulse 94 79 72 Resp 19 18 16 B/P (MAP) 137/73 (94) 145/76 (99) 138/73 (94) Pulse Ox 98 94 94 O2 Delivery Nasal Cannula Nasal Cannula Nasal Cannula Nasal Cannula O2 Flow Rate 2.0 2.0 2.0 2.0 06/23/18 06/23/18 06/23/18 03:00 07:56 11:20 Temp 97.8 99.3 99.3 97.8 99.3 99.3 Pulse 53 98 100 Resp 18 18 18 B/P (MAP) 142/71 (94) 138/79 (98) 134/84 (101) Pulse Ox 97 96 97 O2 Delivery Nasal Cannula Nasal Cannula Nasal Cannula O2 Flow Rate 2.0 2.0 2.0 Intake and Output 06/22/18 06/22/18 06/23/18 15:00 23:00 07:00 Intake Total 0 ml 0 ml Output Total 900 ml 2400 ml Balance -900 ml -2400 ml Nutrition Consultation Dietary Evaluation: Recommendations by RD: Increase Calorie Intake, Protein supplementation Comments: REC advance diet to GI soft/regular w/textures 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
[2018-06-23] MEDS: ANTI-COAG MONITOR BY PHARMACY. MC PRN (12:10)
--- NOTE | 2018-06-23 13:43 | PDOC ---
PULMONARY PROGRESS NOTES Subjective PT NOT MORE SOA Vitals Vital Signs Date Time Temp Pulse Resp B/P (MAP) Pulse Ox O2 Delivery O2 Flow Rate FiO2 06/23/18 11:20 99.3 100 18 134/84 (101) 97 Nasal Cannula 2.0 99.3 ROS: No Nausea, No Chest Pain, No Abdominal Pain, No Increase Cough General: Alert Lungs: Clear Cardiovascular: S1, S2 Abdomen: Soft Neuro Exam: Alert Extremities: No Edema Skin: Warm Labs Laboratory Tests Test 06/21/18 21:00 06/22/18 03:00 06/22/18 09:10 06/23/18 06:15 Heparin Anti-Xa Act, Unfractionated 0.12 IU/mL (0.30-0.70) 0.37 IU/mL (0.30-0.70) 0.43 IU/mL (0.30-0.70) 0.20 IU/mL (0.30-0.70) White Blood Count 6.9 x10^3/uL (4.0-11.0) 9.9 x10^3/uL (4.0-11.0) Red Blood Count 3.08 x10^6/uL (3.50-5.40) 3.41 x10^6/uL (3.50-5.40) Hemoglobin 9.6 g/dL (12.0-15.5) 10.5 g/dL (12.0-15.5) Hematocrit 27.6 % (36.0-47.0) 30.3 % (36.0-47.0) Mean Corpuscular Volume 90 fL (79-100) 89 fL (79-100) Mean Corpuscular Hemoglobin 31 pg (25-35) 31 pg (25-35) Mean Corpuscular Hemoglobin Concent 35 g/dL (31-37) 35 g/dL (31-37) Red Cell Distribution Width 13.3 % (11.5-14.5) 13.1 % (11.5-14.5) Platelet Count 120 x10^3/uL (140-400) 161 x10^3/uL (140-400) Neutrophils (%) (Auto) 79 % (31-73) 87 % (31-73) Lymphocytes (%) (Auto) 12 % (24-48) 5 % (24-48) Monocytes (%) (Auto) 6 % (0-9) 6 % (0-9) Eosinophils (%) (Auto) 3 % (0-3) 2 % (0-3) Basophils (%) (Auto) 0 % (0-3) 0 % (0-3) Neutrophils # (Auto) 5.4 x10^3uL (1.8-7.7) 8.5 x10^3uL (1.8-7.7) Lymphocytes # (Auto) 0.8 x10^3/uL (1.0-4.8) 0.5 x10^3/uL (1.0-4.8) Monocytes # (Auto) 0.4 x10^3/uL (0.0-1.1) 0.6 x10^3/uL (0.0-1.1) Eosinophils # (Auto) 0.2 x10^3/uL (0.0-0.7) 0.2 x10^3/uL (0.0-0.7) Basophils # (Auto) 0.0 x10^3/uL (0.0-0.2) 0.0 x10^3/uL (0.0-0.2) Sodium Level 145 mmol/L (136-145) 141 mmol/L (136-145) Potassium Level 3.3 mmol/L (3.5-5.1) 3.4 mmol/L (3.5-5.1) Chloride Level 111 mmol/L (98-107) 107 mmol/L (98-107) Carbon Dioxide Level 27 mmol/L (21-32) 25 mmol/L (21-32) Anion Gap 7 (6-14) 9 (6-14) Blood Urea Nitrogen 4 mg/dL (7-20) 6 mg/dL (7-20) Creatinine 0.6 mg/dL (0.6-1.0) 0.6 mg/dL (0.6-1.0) Estimated GFR (Cockcroft-Gault) 97.7 97.7 Glucose Level 104 mg/dL (70-99) 124 mg/dL (70-99) Calcium Level 8.3 mg/dL (8.5-10.1) 8.1 mg/dL (8.5-10.1) Laboratory Tests Test 06/23/18 06:15 White Blood Count 9.9 x10^3/uL (4.0-11.0) Red Blood Count 3.41 x10^6/uL (3.50-5.40) Hemoglobin 10.5 g/dL (12.0-15.5) Hematocrit 30.3 % (36.0-47.0) Mean Corpuscular Volume 89 fL (79-100) Mean Corpuscular Hemoglobin 31 pg (25-35) Mean Corpuscular Hemoglobin Concent 35 g/dL (31-37) Red Cell Distribution Width 13.1 % (11.5-14.5) Platelet Count 161 x10^3/uL (140-400) Neutrophils (%) (Auto) 87 % (31-73) Lymphocytes (%) (Auto) 5 % (24-48) Monocytes (%) (Auto) 6 % (0-9) Eosinophils (%) (Auto) 2 % (0-3) Basophils (%) (Auto) 0 % (0-3) Neutrophils # (Auto) 8.5 x10^3uL (1.8-7.7) Lymphocytes # (Auto) 0.5 x10^3/uL (1.0-4.8) Monocytes # (Auto) 0.6 x10^3/uL (0.0-1.1) Eosinophils # (Auto) 0.2 x10^3/uL (0.0-0.7) Basophils # (Auto) 0.0 x10^3/uL (0.0-0.2) Heparin Anti-Xa Act, Unfractionated 0.20 IU/mL (0.30-0.70) Sodium Level 141 mmol/L (136-145) Potassium Level 3.4 mmol/L (3.5-5.1) Chloride Level 107 mmol/L (98-107) Carbon Dioxide Level 25 mmol/L (21-32) Anion Gap 9 (6-14) Blood Urea Nitrogen 6 mg/dL (7-20) Creatinine 0.6 mg/dL (0.6-1.0) Estimated GFR (Cockcroft-Gault) 97.7 Glucose Level 124 mg/dL (70-99) Calcium Level 8.1 mg/dL (8.5-10.1) Medications Active Scripts Medications Dose Route/Sig Max Daily Dose Days Date Category Centrum Complete Multivit Tab (Multivitamin/Iron/Folic Acid) 1 Each Tablet 1 Each PO DAILY 06/20/18 Reported Hydroxyzine Hcl 10 Mg/5 Ml Syrup 10 Mg PO HS PRN 06/20/18 Reported Zoloft (Sertraline Hcl) 100 Mg Tablet 100 Mg PO HS 06/20/18 Reported Zoloft (Sertraline Hcl) 50 Mg Tablet 50 Mg PO HS 06/20/18 Reported Aricept (Donepezil Hcl) 23 Mg Tablet 23 Mg PO HS 06/20/18 Reported Hydroxyzine Hcl 10 Mg/5 Ml Syrup 10 Mg PO DAILY 06/19/18 Reported Impression . IMPRESSION: 1. Acute pulmonary embolism. 2. Acute respiratory distress secondary to above. 3. Recent near syncopal episode secondary to acute pulmonary embolism. 4. Echocardiogram revealing no significant right heart strain, mild elevation in pulmonary artery pressure, suspected pulmonary embolism was not acute, but subacute, the patient remained hemodynamically stable throughout her stay. 5. The patient at risk for fall with subsequent complications of utilizing anticoagulation. 6. Non-ST segment elevation myocardial infarction, elevated troponin level. 06/21 Impression: 1. Infrarenal permanent IVC filter placement as described Plan . OK TO TRANSFER IN AM SPOKE WITH DAUGHTER NO ANTICOAGULATION RECOMMENDED RISK OF FALL IS GREAT DAUGHTER AGREES INFORMED HER THAT FILTER IS NOT 100% PROTECTED MARC MOODY MD Jun 23, 2018 13:43
[2018-06-23] MEDS: LORazepam 0.5 MG TABLET PO PRN (14:19)
[2018-06-23 15:23] VITALS: BP 136/75
[2018-06-23] MEDS ORDERED: hydrOXYzine 10 MG TABLET PO PRN (17:00)
[2018-06-23] MEDS: ATORVASTATIN CALCIUM 20 MG TABLET PO SCH (19:50)
[2018-06-23] MEDS: SERTRALINE 50 MG TABLET. PO SCH (19:50)
[2018-06-23 19:55] VITALS: BP 127/72
[2018-06-23] MEDS: MORPHINE SULFATE 2 MG/ML VIAL. IV PRN (20:31)
[2018-06-23] MEDS: HEPARIN 25,000UTS/500ML PREMIX 500 ML IV PRN (20:32)
[2018-06-23 23:50] VITALS: BP 143/77
[2018-06-24 03:50] VITALS: BP 151/80
[2018-06-24 04:26] LABS: BASO % 1 % (0-3); EOS # 0.2 x10^3/uL (0.0-0.7); EOS % 2 % (0-3); HEMATOCRIT 31.4 % (36.0-47.0); HEMOGLOBIN 10.9 g/dL (12.0-15.5); LYMPH # 0.5 x10^3/uL (1.0-4.8); LYMPH % 5 % (24-48); MEAN CORPUSCULAR HEMOGLOBIN 31 pg (25-35); MEAN CORPUSCULAR HGB CONC 35 g/dL (31-37); MEAN CORPUSCULAR VOLUME 89 fL (79-100); MONO # 0.6 x10^3/uL (0.0-1.1); MONO % 6 % (0-9); NEUT # 8.4 x10^3uL (1.8-7.7); NEUT % 87 % (31-73); PLATELET COUNT 183 x10^3/uL (140-400); RED BLOOD COUNT 3.54 x10^6/uL (3.50-5.40); RED CELL DISTRIBUTION WIDTH 13.5 % (11.5-14.5); WHITE BLOOD COUNT 9.7 x10^3/uL (4.0-11.0)
[2018-06-24] MEDS: AMINO AC 3%/ELECTROLYTE/GLYCER 1,000 ML IV SCH ×2 (04:29→20:29)
[2018-06-24 05:04] LABS: CALCIUM 8.5 mg/dL (8.5-10.1); CREATININE 0.6 mg/dL (0.6-1.0); GFR 97.7; POTASSIUM 3.5 mmol/L (3.5-5.1)
[2018-06-24 07:39] VITALS: BP 127/76
--- NOTE | 2018-06-24 09:18 | PDOC ---
PULMONARY PROGRESS NOTES Subjective PT NOT MORE SOA Vitals Vital Signs Date Time Temp Pulse Resp B/P (MAP) Pulse Ox O2 Delivery O2 Flow Rate FiO2 06/24/18 07:39 98.2 63 18 127/76 (93) 95 Nasal Cannula 2.0 98.2 ROS: No Nausea, No Chest Pain, No Abdominal Pain, No Increase Cough General: Alert Lungs: Clear Cardiovascular: S1, S2 Abdomen: Soft Neuro Exam: Alert Extremities: No Edema Skin: Warm Labs Laboratory Tests Test 06/23/18 06:15 06/24/18 04:10 White Blood Count 9.9 x10^3/uL (4.0-11.0) 9.7 x10^3/uL (4.0-11.0) Red Blood Count 3.41 x10^6/uL (3.50-5.40) 3.54 x10^6/uL (3.50-5.40) Hemoglobin 10.5 g/dL (12.0-15.5) 10.9 g/dL (12.0-15.5) Hematocrit 30.3 % (36.0-47.0) 31.4 % (36.0-47.0) Mean Corpuscular Volume 89 fL (79-100) 89 fL (79-100) Mean Corpuscular Hemoglobin 31 pg (25-35) 31 pg (25-35) Mean Corpuscular Hemoglobin Concent 35 g/dL (31-37) 35 g/dL (31-37) Red Cell Distribution Width 13.1 % (11.5-14.5) 13.5 % (11.5-14.5) Platelet Count 161 x10^3/uL (140-400) 183 x10^3/uL (140-400) Neutrophils (%) (Auto) 87 % (31-73) 87 % (31-73) Lymphocytes (%) (Auto) 5 % (24-48) 5 % (24-48) Monocytes (%) (Auto) 6 % (0-9) 6 % (0-9) Eosinophils (%) (Auto) 2 % (0-3) 2 % (0-3) Basophils (%) (Auto) 0 % (0-3) 1 % (0-3) Neutrophils # (Auto) 8.5 x10^3uL (1.8-7.7) 8.4 x10^3uL (1.8-7.7) Lymphocytes # (Auto) 0.5 x10^3/uL (1.0-4.8) 0.5 x10^3/uL (1.0-4.8) Monocytes # (Auto) 0.6 x10^3/uL (0.0-1.1) 0.6 x10^3/uL (0.0-1.1) Eosinophils # (Auto) 0.2 x10^3/uL (0.0-0.7) 0.2 x10^3/uL (0.0-0.7) Basophils # (Auto) 0.0 x10^3/uL (0.0-0.2) 0.0 x10^3/uL (0.0-0.2) Heparin Anti-Xa Act, Unfractionated 0.20 IU/mL (0.30-0.70) 0.21 IU/mL (0.30-0.70) Sodium Level 141 mmol/L (136-145) 142 mmol/L (136-145) Potassium Level 3.4 mmol/L (3.5-5.1) 3.5 mmol/L (3.5-5.1) Chloride Level 107 mmol/L (98-107) 107 mmol/L (98-107) Carbon Dioxide Level 25 mmol/L (21-32) 26 mmol/L (21-32) Anion Gap 9 (6-14) 9 (6-14) Blood Urea Nitrogen 6 mg/dL (7-20) 10 mg/dL (7-20) Creatinine 0.6 mg/dL (0.6-1.0) 0.6 mg/dL (0.6-1.0) Estimated GFR (Cockcroft-Gault) 97.7 97.7 Glucose Level 124 mg/dL (70-99) 115 mg/dL (70-99) Calcium Level 8.1 mg/dL (8.5-10.1) 8.5 mg/dL (8.5-10.1) Laboratory Tests Test 06/24/18 04:10 White Blood Count 9.7 x10^3/uL (4.0-11.0) Red Blood Count 3.54 x10^6/uL (3.50-5.40) Hemoglobin 10.9 g/dL (12.0-15.5) Hematocrit 31.4 % (36.0-47.0) Mean Corpuscular Volume 89 fL (79-100) Mean Corpuscular Hemoglobin 31 pg (25-35) Mean Corpuscular Hemoglobin Concent 35 g/dL (31-37) Red Cell Distribution Width 13.5 % (11.5-14.5) Platelet Count 183 x10^3/uL (140-400) Neutrophils (%) (Auto) 87 % (31-73) Lymphocytes (%) (Auto) 5 % (24-48) Monocytes (%) (Auto) 6 % (0-9) Eosinophils (%) (Auto) 2 % (0-3) Basophils (%) (Auto) 1 % (0-3) Neutrophils # (Auto) 8.4 x10^3uL (1.8-7.7) Lymphocytes # (Auto) 0.5 x10^3/uL (1.0-4.8) Monocytes # (Auto) 0.6 x10^3/uL (0.0-1.1) Eosinophils # (Auto) 0.2 x10^3/uL (0.0-0.7) Basophils # (Auto) 0.0 x10^3/uL (0.0-0.2) Heparin Anti-Xa Act, Unfractionated 0.21 IU/mL (0.30-0.70) Sodium Level 142 mmol/L (136-145) Potassium Level 3.5 mmol/L (3.5-5.1) Chloride Level 107 mmol/L (98-107) Carbon Dioxide Level 26 mmol/L (21-32) Anion Gap 9 (6-14) Blood Urea Nitrogen 10 mg/dL (7-20) Creatinine 0.6 mg/dL (0.6-1.0) Estimated GFR (Cockcroft-Gault) 97.7 Glucose Level 115 mg/dL (70-99) Calcium Level 8.5 mg/dL (8.5-10.1) Medications Active Scripts Medications Dose Route/Sig Max Daily Dose Days Date Category Centrum Complete Multivit Tab (Multivitamin/Iron/Folic Acid) 1 Each Tablet 1 Each PO DAILY 06/20/18 Reported Hydroxyzine Hcl 10 Mg/5 Ml Syrup 10 Mg PO HS PRN 06/20/18 Reported Zoloft (Sertraline Hcl) 100 Mg Tablet 100 Mg PO HS 06/20/18 Reported Zoloft (Sertraline Hcl) 50 Mg Tablet 50 Mg PO HS 06/20/18 Reported Aricept (Donepezil Hcl) 23 Mg Tablet 23 Mg PO HS 06/20/18 Reported Hydroxyzine Hcl 10 Mg/5 Ml Syrup 10 Mg PO DAILY 06/19/18 Reported Impression . IMPRESSION: 1. Acute pulmonary embolism. 2. Acute respiratory distress secondary to above. 3. Recent near syncopal episode secondary to acute pulmonary embolism. 4. Echocardiogram revealing no significant right heart strain, mild elevation in pulmonary artery pressure, suspected pulmonary embolism was not acute, but subacute, the patient remained hemodynamically stable throughout her stay. 5. The patient at risk for fall with subsequent complications of utilizing anticoagulation. 6. Non-ST segment elevation myocardial infarction, elevated troponin level. 06/21 Impression: 1. Infrarenal permanent IVC filter placement as described Plan . WORKING ON DISPOSITION HEPARIN TILL PT IS DISCHARGE SPOKE WITH DAUGHTER NO ANTICOAGULATION RECOMMENDED RISK OF FALL IS GREAT DAUGHTER AGREES INFORMED HER THAT FILTER IS NOT 100% PROTECTED MARC MOODY MD Jun 24, 2018 09:18
[2018-06-24] MEDS: ASPIRIN ENTERIC COATED 81 MG TABLET.DR. PO SCH (10:20)
[2018-06-24] MEDS: hydrOXYzine 10 MG TABLET PO SCH (10:21)
[2018-06-24] MEDS: MULTIVITAMIN with MINERAL TABLET. PO SCH (10:21)
[2018-06-24] MEDS: DONEPEZIL HCL 10 MG TABLET. PO SCH ×2 (10:21→20:30)
[2018-06-24] MEDS: MICONAZOLE NITRATE 2% TOPICAL CREAM 28GM TUBE. TP SCH ×2 (10:21→20:36)
[2018-06-24] MEDS: ANTI-COAG MONITOR BY PHARMACY. MC PRN (10:56)
[2018-06-24 11:10] VITALS: BP 108/71
--- NOTE | 2018-06-24 13:28 | DISCH ---
DISCHARGE DISCHARGE INFORMATION: DISCHARGE DATE: Jun 24, 2018 FINAL DIAGNOSIS PE CONDITION ON DISCHARGE: Stable CODE STATUS: Code Status: Full LONG TERM: SNF STAY <30 DAYS: Yes POST DISCHARGE ORDERS: ACTIVITY ORDERS: Activity as tolerated WEIGHT BEARING STATUS: As tolerated DIET AFTER DISCHARGE: Regular FOLLOW-UP: PHYSICIAN FOLLOW-UP: < 2 weeks TREATMENT/EQUIPMENT ORDERS: ADAPTIVE EQUIPMENT NEEDED: Front wheeled walker Physical Therapy For: Evalulation/Treatment Occupational Therapy For: Evaluation/Treatment DISCHARGE MEDICATIONS: Home Meds Reported Medications Multivitamin/Iron/Folic Acid (CENTRUM COMPLETE MULTIVIT TAB) 1 Each Tablet, 1 EACH PO DAILY, TAB 06/20/18 Hydroxyzine Hcl (HYDROXYZINE HCL) 10 Mg/5 Ml Syrup, 10 MG PO HS PRN for ANXIETY / AGITATION, MISC 06/20/18 Sertraline Hcl (ZOLOFT) 100 Mg Tablet, 100 MG PO HS for ANTI-DEPRESSANT, TAB 0 Refills 06/20/18 Sertraline Hcl (ZOLOFT) 50 Mg Tablet, 50 MG PO HS for ANTI-DEPRESSANT, TAB 0 Refills 06/20/18 Donepezil Hcl (ARICEPT) 23 Mg Tablet, 23 MG PO HS, TAB 06/20/18 Hydroxyzine Hcl (HYDROXYZINE HCL) 10 Mg/5 Ml Syrup, 10 MG PO DAILY, MISC 06/19/18 Discontinued Reported Medications Donepezil Hcl (DONEPEZIL HCL) 5 Mg Tablet, 2.5 MG PO DAILY, TAB 02/06/17 RAFAELA ANDERSON MD Jun 24, 2018 13:28
[2018-06-24] MEDS ORDERED: MICO14CR TP (13:31)
[2018-06-24] MEDS ORDERED: APIXABAN 5 MG TABLET. PO SCH (13:45)
[2018-06-24] MEDS: HYDROcodone/APAP 5/325MG 1 TAB TABLET PO PRN (15:22)
[2018-06-24 15:58] VITALS: BP 114/66
--- NOTE | 2018-06-24 16:07 | PDOC ---
PROGRESS NOTES Chief Complaint Chief Complaint acute hypoxoic respiratory failure, large pulmonary embolism , Saddle PE S/p IVC filter placement 06/21/18 BIlateral leg DVT - new H/o Fall , no injuries Hypoxic respiratory failure secondary to above above Elevated Troponin in the background of saddle PE dementia, chronic encephalopathy DYysphagia - NPO History of Present Illness History of Present Illness t/o out of ICU 06/21/18 BReathing actually better for the first time today, less tachypnea, less tachycardic Family very involved in care-very pleasant and realistic Did discuss feeding options, NG tube was not an option currently Failed swallow, I did shift ProcalAmine on Sunday Gets tired easy which is affecting swallowing (saddle PE and all) Echo - PA pressures 24 - copy given to dtr Plan: intermittent RESEARCH PROGRAM INTERN evaluation Continue heparin drip We'll transition to NovelOAC once recommended already by pulmonary In the meantime continue heparin drip, watch out for bleeding PT OT, high fall risk Came from home, initially very active, gardening etc. Vitals Vitals Vital Signs Date Time Temp Pulse Resp B/P (MAP) Pulse Ox O2 Delivery O2 Flow Rate FiO2 06/24/18 15:58 97.5 63 18 114/66 (82) 97 Room Air 97.5 06/24/18 08:00 2.0 Physical Exam General: Alert, Oriented X3, Cooperative, No acute distress, mild distress, Other (tachypneic) Heart: Regular rate (SR without ectopies), Other (2/6 systolic murmur to LLS border, tachy ) Lungs: Clear Abdomen: Normal bowel sounds, Soft, No tenderness Extremities: No cyanosis, No edema Skin: No rashes, No breakdown, No significant lesion Labs LABS Laboratory Tests Test 06/24/18 04:10 06/24/18 13:05 White Blood Count 9.7 x10^3/uL (4.0-11.0) Red Blood Count 3.54 x10^6/uL (3.50-5.40) Hemoglobin 10.9 g/dL (12.0-15.5) Hematocrit 31.4 % (36.0-47.0) Mean Corpuscular Volume 89 fL (79-100) Mean Corpuscular Hemoglobin 31 pg (25-35) Mean Corpuscular Hemoglobin Concent 35 g/dL (31-37) Red Cell Distribution Width 13.5 % (11.5-14.5) Platelet Count 183 x10^3/uL (140-400) Neutrophils (%) (Auto) 87 % (31-73) Lymphocytes (%) (Auto) 5 % (24-48) Monocytes (%) (Auto) 6 % (0-9) Eosinophils (%) (Auto) 2 % (0-3) Basophils (%) (Auto) 1 % (0-3) Neutrophils # (Auto) 8.4 x10^3uL (1.8-7.7) Lymphocytes # (Auto) 0.5 x10^3/uL (1.0-4.8) Monocytes # (Auto) 0.6 x10^3/uL (0.0-1.1) Eosinophils # (Auto) 0.2 x10^3/uL (0.0-0.7) Basophils # (Auto) 0.0 x10^3/uL (0.0-0.2) Heparin Anti-Xa Act, Unfractionated 0.21 IU/mL (0.30-0.70) 0.35 IU/mL (0.30-0.70) Sodium Level 142 mmol/L (136-145) Potassium Level 3.5 mmol/L (3.5-5.1) Chloride Level 107 mmol/L (98-107) Carbon Dioxide Level 26 mmol/L (21-32) Anion Gap 9 (6-14) Blood Urea Nitrogen 10 mg/dL (7-20) Creatinine 0.6 mg/dL (0.6-1.0) Estimated GFR (Cockcroft-Gault) 97.7 Glucose Level 115 mg/dL (70-99) Calcium Level 8.5 mg/dL (8.5-10.1) Comment Review of Relevant I have reviewed the following items gal (where applicable) has been applied. Labs Laboratory Tests Test 06/23/18 06:15 06/24/18 04:10 06/24/18 13:05 White Blood Count 9.9 x10^3/uL (4.0-11.0) 9.7 x10^3/uL (4.0-11.0) Red Blood Count 3.41 x10^6/uL (3.50-5.40) 3.54 x10^6/uL (3.50-5.40) Hemoglobin 10.5 g/dL (12.0-15.5) 10.9 g/dL (12.0-15.5) Hematocrit 30.3 % (36.0-47.0) 31.4 % (36.0-47.0) Mean Corpuscular Volume 89 fL (79-100) 89 fL (79-100) Mean Corpuscular Hemoglobin 31 pg (25-35) 31 pg (25-35) Mean Corpuscular Hemoglobin Concent 35 g/dL (31-37) 35 g/dL (31-37) Red Cell Distribution Width 13.1 % (11.5-14.5) 13.5 % (11.5-14.5) Platelet Count 161 x10^3/uL (140-400) 183 x10^3/uL (140-400) Neutrophils (%) (Auto) 87 % (31-73) 87 % (31-73) Lymphocytes (%) (Auto) 5 % (24-48) 5 % (24-48) Monocytes (%) (Auto) 6 % (0-9) 6 % (0-9) Eosinophils (%) (Auto) 2 % (0-3) 2 % (0-3) Basophils (%) (Auto) 0 % (0-3) 1 % (0-3) Neutrophils # (Auto) 8.5 x10^3uL (1.8-7.7) 8.4 x10^3uL (1.8-7.7) Lymphocytes # (Auto) 0.5 x10^3/uL (1.0-4.8) 0.5 x10^3/uL (1.0-4.8) Monocytes # (Auto) 0.6 x10^3/uL (0.0-1.1) 0.6 x10^3/uL (0.0-1.1) Eosinophils # (Auto) 0.2 x10^3/uL (0.0-0.7) 0.2 x10^3/uL (0.0-0.7) Basophils # (Auto) 0.0 x10^3/uL (0.0-0.2) 0.0 x10^3/uL (0.0-0.2) Heparin Anti-Xa Act, Unfractionated 0.20 IU/mL (0.30-0.70) 0.21 IU/mL (0.30-0.70) 0.35 IU/mL (0.30-0.70) Sodium Level 141 mmol/L (136-145) 142 mmol/L (136-145) Potassium Level 3.4 mmol/L (3.5-5.1) 3.5 mmol/L (3.5-5.1) Chloride Level 107 mmol/L (98-107) 107 mmol/L (98-107) Carbon Dioxide Level 25 mmol/L (21-32) 26 mmol/L (21-32) Anion Gap 9 (6-14) 9 (6-14) Blood Urea Nitrogen 6 mg/dL (7-20) 10 mg/dL (7-20) Creatinine 0.6 mg/dL (0.6-1.0) 0.6 mg/dL (0.6-1.0) Estimated GFR (Cockcroft-Gault) 97.7 97.7 Glucose Level 124 mg/dL (70-99) 115 mg/dL (70-99) Calcium Level 8.1 mg/dL (8.5-10.1) 8.5 mg/dL (8.5-10.1) Laboratory Tests Test 06/24/18 04:10 06/24/18 13:05 White Blood Count 9.7 x10^3/uL (4.0-11.0) Red Blood Count 3.54 x10^6/uL (3.50-5.40) Hemoglobin 10.9 g/dL (12.0-15.5) Hematocrit 31.4 % (36.0-47.0) Mean Corpuscular Volume 89 fL (79-100) Mean Corpuscular Hemoglobin 31 pg (25-35) Mean Corpuscular Hemoglobin Concent 35 g/dL (31-37) Red Cell Distribution Width 13.5 % (11.5-14.5) Platelet Count 183 x10^3/uL (140-400) Neutrophils (%) (Auto) 87 % (31-73) Lymphocytes (%) (Auto) 5 % (24-48) Monocytes (%) (Auto) 6 % (0-9) Eosinophils (%) (Auto) 2 % (0-3) Basophils (%) (Auto) 1 % (0-3) Neutrophils # (Auto) 8.4 x10^3uL (1.8-7.7) Lymphocytes # (Auto) 0.5 x10^3/uL (1.0-4.8) Monocytes # (Auto) 0.6 x10^3/uL (0.0-1.1) Eosinophils # (Auto) 0.2 x10^3/uL (0.0-0.7) Basophils # (Auto) 0.0 x10^3/uL (0.0-0.2) Heparin Anti-Xa Act, Unfractionated 0.21 IU/mL (0.30-0.70) 0.35 IU/mL (0.30-0.70) Sodium Level 142 mmol/L (136-145) Potassium Level 3.5 mmol/L (3.5-5.1) Chloride Level 107 mmol/L (98-107) Carbon Dioxide Level 26 mmol/L (21-32) Anion Gap 9 (6-14) Blood Urea Nitrogen 10 mg/dL (7-20) Creatinine 0.6 mg/dL (0.6-1.0) Estimated GFR (Cockcroft-Gault) 97.7 Glucose Level 115 mg/dL (70-99) Calcium Level 8.5 mg/dL (8.5-10.1) Microbiology 06/20/18 Blood Culture - Preliminary, Resulted NO GROWTH AFTER 4 DAYS Medications Current Medications Ondansetron HCl (Zofran) 4 mg PRN Q6HRS PRN IV NAUSEA/VOMITING; Start at 18:15; Stop 06/19/18 at 19:01; Status DC Sodium Chloride (Normal Saline Flush) 3 ml QSHIFT PRN IV AFTER MEDS AND BLOOD DRAWS; Start 06/19/18 at 18:15 Albuterol/ Ipratropium (Duoneb) 3 ml RTQID NEB Last administered on 06/21/18at 16:38; Start 06/19/18 at 20:00; Stop 06/21/18 at 17:28; Status DC Guaifenesin (Robitussin Dm) 10 ml PRN Q6HRS PRN PO COUGH; Start 06/19/18 at 18 :30 Donepezil HCl (Aricept) 5 mg QHS PO Last administered on 06/20/18at 20:36; Start 06/19/18 at 21:00; Stop 06/21/18 at 08:10; Status DC Sertraline HCl (Zoloft) 25 mg QHS PO Last administered on 06/19/18at 20:35; Start 06/19/18 at 21:00; Stop 06/20/18 at 11:33; Status DC Alprazolam (Xanax) 0.25 mg PRN Q8HRS PRN PO ANXIETY/AGITATION 2ND CHOICE Last administered on 06/22/18at 15:52; Start 06/19/18 at 18:30 Alprazolam (Xanax) 0.25 mg 1X ONCE PO Last administered on 06/19/18at 20:27; Start 06/19/18 at 18:30; Stop 06/19/18 at 18:34; Status DC Hydroxyzine HCl (Atarax) 10 mg PRN Q6HRS PRN PO ITCHING; Start 06/19/18 at 18: 30 Multivitamins (Thera M Plus) 1 tab DAILY PO Last administered on 06/24/18at 10: 21; Start 06/20/18 at 09:00 Heparin Sodium (Porcine) (Heparin Sodium) 4,160 unit 1X ONCE IV Last administered on 06/19/18at 20:27; Start 06/19/18 at 18:30; Stop 06/19/18 at 18 :34; Status DC Heparin Sodium/ Dextrose 500 ml @ 16.64 mls/ hr CONT PRN IV SEE I/O RECORD Last administered on 06/23/18at 20:32; Start 06/19/18 at 18:30; Stop 06/24/18 at 13:41; Status DC Heparin Sodium (Porcine) (Heparin Sodium) 1,560 unit PRN Q6HRS PRN IV FOR UFH LEVEL LESS THAN 0.2 Last administered on 06/21/18at 22:24; Start 06/19/18 at 18 :30; Stop 06/24/18 at 13:42; Status DC Heparin Sodium (Porcine) (Heparin Sodium) 780 unit PRN Q6HRS PRN IV FOR UFH LEVEL 0.2 - 0.29 Last administered on 06/24/18at 06:29; Start 06/19/18 at 18:30 ; Stop 06/24/18 at 13:41; Status DC Acetaminophen/ Hydrocodone Bitart (Lortab 5/325) 1 tab PRN Q4HRS PRN PO MODERATE-SEVERE PAIN Last administered on 06/24/18at 15:22; Start 06/19/18 at 18:30 Acetaminophen (Tylenol) 500 mg PRN Q6HRS PRN PO MILD PAIN / TEMP; Start at 18:30 Ondansetron HCl (Zofran) 4 mg PRN Q6HRS PRN IV NAUSEA/VOMITING Last administered on 06/20/18at 12:09; Start 06/19/18 at 18:30 Ondansetron HCl (Zofran Odt) 4 mg PRN Q6HRS PRN PO NAUSEA/VOMITING Last administered on 06/23/18at 10:56; Start 06/19/18 at 18:30 Heparin Sodium (Porcine) (Heparin Sodium) 4,150 unit 1X ONCE IV ; Start at 18:30; Stop 06/19/18 at 18:31; Status UNV Heparin Sodium/ Dextrose 500 ml @ 0 mls/hr CONT PRN IV SEE I/O RECORD; Start 06/19/18 at 18:30; Status UNV Heparin Sodium (Porcine) (Heparin Sodium) 1,550 unit PRN Q6HRS PRN IV FOR UFH LEVEL LESS THAN 0.2; Start 06/19/18 at 18:30; Status UNV Heparin Sodium (Porcine) (Heparin Sodium) 800 unit PRN Q6HRS PRN IV FOR UFH LEVEL 0.2 - 0.29; Start 06/19/18 at 18:30; Status UNV Lorazepam (Ativan) 0.5 mg PRN Q8HRS PRN PO ANXIETY/AGITATION 1ST CHOICE Last administered on 06/23/18at 14:19; Start 06/19/18 at 19:00 Sodium Chloride 1,000 ml @ 80 mls/hr [id number] IV Last administered on at 09:56; Start 06/19/18 at 20:45; Stop 06/22/18 at 13:05; Status DC Influenza Virus Vaccine (Afluria Trivalent [id number] Syringe) 0.5 ml ONCE ONCE VAX IM ; Start 06/20/18 at 09:00; Stop 06/20/18 at 09:01; Status DC Info (Anti-Coagulation Monitoring By Pharmacy) 1 each PRN DAILY PRN MC SEE COMMENTS Last administered on 06/24/18at 10:56; Start 06/20/18 at 09:00 Aspirin (Ecotrin) 81 mg [id number] PO Last administered on 06/24/18at 10:20; Start 06/20/18 at 12:00 Sertraline HCl (Zoloft) 150 mg HS PO Last administered on 06/22/18at 20:29; Start 06/20/18 at 21:00 Donepezil HCl (Aricept) 10 mg BID PO Last administered on 06/24/18at 10:21; Start 06/20/18 at 12:00 Hydroxyzine HCl (Atarax) 10 mg DAILY PO Last administered on 06/24/18at 10:21; Start 06/20/18 at 12:00 Hydroxyzine HCl (Atarax) 10 mg QHS PRN PO ANXIETY/AGITATION; Start 06/20/18 at 11:45; Stop 06/23/18 at 16:53; Status DC Non-Formulary Medication (Multivitamin/ Iron/Folic Acid (Centrum Complete Multivit Tab)) 1 each DAILY PO ; Start 06/21/18 at 09:00; Status UNV Non-Formulary Medication (Sertraline Hcl (Zoloft)) 100 mg HS PO ; Start at 21:00; Status UNV Atorvastatin Calcium (Lipitor) 20 mg QHS PO Last administered on 06/22/18at 20: 28; Start 06/20/18 at 21:00 Sodium Chloride 500 ml @ 500 mls/hr 1X ONCE IV Last administered on at 00:37; Start 06/21/18 at 01:00; Stop 06/21/18 at 01:59; Status DC Lidocaine/Sodium Bicarbonate (Buffered Lidocaine 1%) 3 ml STK-MED ONCE .ROUTE ; Start 06/21/18 at 09:32; Stop 06/21/18 at 09:33; Status DC Iohexol (Omnipaque 240 Mg/ml) 50 ml STK-MED ONCE .ROUTE ; Start 06/21/18 at 09: 32; Stop 06/21/18 at 09:33; Status DC Lidocaine/Sodium Bicarbonate (Buffered Lidocaine 1%) 3 ml 1X ONCE IJ Last administered on 06/21/18at 10:16; Start 06/21/18 at 10:15; Stop 06/21/18 at 10 :16; Status DC Iohexol (Omnipaque 240 Mg/ml) 50 ml 1X ONCE IV Last administered on at 10:17; Start 06/21/18 at 10:15; Stop 06/21/18 at 10:16; Status DC Miconazole Nitrate (Monistat-Derm) 1 cali BID TP Last administered on at 10:21; Start 06/21/18 at 14:00 Albuterol/ Ipratropium (Duoneb) 3 ml RTQID PRN NEB SHORTNESS OF BREATH Last administered on 06/22/18at 07:52; Start 06/21/18 at 17:30 Influenza Virus Vaccine (Afluria Trivalent [id number] Syringe) 0.5 ml ONCE ONCE VAX IM Last administered on 06/21/18at 21:23; Start 06/21/18 at 21:00; Stop 06/21/18 at 21:01; Status DC Amino Acids/ Glycerin/ Electrolytes 1,000 ml @ 80 mls/hr [id number] IV Last administered on 06/24/18at 04:29; Start 06/22/18 at 13:15; Stop 06/24/18 at 13 :34; Status DC Hydroxyzine HCl (Atarax) 10 mg PRN QHS PRN PO ANXIETY/AGITATION; Start at 17:00 Morphine Sulfate (Morphine Sulfate) 1 mg PRN Q4HRS PRN IV MODERATE PAIN Last administered on 06/23/18at 20:31; Start 06/23/18 at 20:00 Lorazepam (Ativan) 1 mg PRN Q4HRS PRN IV ANXIETY / AGITATION Last administered on 06/23/18at 20:31; Start 06/23/18 at 20:00 Apixaban (Eliquis) 5 mg BID PO ; Start 06/24/18 at 13:45; Status Cancel Enoxaparin Sodium (Lovenox 60mg Syringe) 50 mg Q12HR SQ ; Start 06/24/18 at 14: 00 Active Scripts Active Antifungal Cream (Miconazole Nitrate) 14 Gm Cream..g. 1 Cali TP BID Reported Centrum Complete Multivit Tab (Multivitamin/Iron/Folic Acid) 1 Each Tablet 1 Each PO DAILY Hydroxyzine Hcl 10 Mg/5 Ml Syrup 10 Mg PO HS PRN Zoloft (Sertraline Hcl) 100 Mg Tablet 100 Mg PO HS Zoloft (Sertraline Hcl) 50 Mg Tablet 50 Mg PO HS Aricept (Donepezil Hcl) 23 Mg Tablet 23 Mg PO HS Hydroxyzine Hcl 10 Mg/5 Ml Syrup 10 Mg PO DAILY Vitals/I & O Vital Sign - Last 24 Hours 06/23/18 06/23/18 06/23/18 06/23/18 19:55 20:00 20:31 21:01 Temp 97.5 97.5 Pulse 75 Resp 18 18 17 B/P (MAP) 127/72 (90) Pulse Ox 95 97 97 O2 Delivery Nasal Cannula Nasal Cannula Nasal Cannula Nasal Cannula O2 Flow Rate 2.0 2.0 06/23/18 06/24/18 06/24/18 06/24/18 23:50 03:50 07:39 08:00 Temp 97.9 98.1 98.2 97.9 98.1 98.2 Pulse 70 68 63 Resp 18 18 18 B/P (MAP) 143/77 (99) 151/80 (103) 127/76 (93) Pulse Ox 95 94 95 O2 Delivery Nasal Cannula Nasal Cannula Nasal Cannula Nasal Cannula O2 Flow Rate 2.0 2.0 2.0 2.0 06/24/18 06/24/18 06/24/18 11:10 15:22 15:58 Temp 97.5 97.5 97.5 97.5 Pulse 70 63 Resp 18 18 B/P (MAP) 108/71 (83) 114/66 (82) Pulse Ox 96 97 O2 Delivery Room Air Room Air Room Air Intake and Output 06/23/18 06/23/18 06/24/18 15:00 23:00 07:00 Intake Total 0 ml 0 ml Output Total 1400 ml 1750 ml Balance -1400 ml -1750 ml Nutrition Consultation Dietary Evaluation: Recommendations by RD: Increase Calorie Intake, Protein supplementation, PPN/ TPN Comments: REC advance diet to GI soft/regular w/textures per RESEARCH PROGRAM INTERN REC Ensure TID continue PPN until able to advance diet Expected Outcomes/Goals: PO intake to meet >75% est needs Malnutrition Findings: Body Fat Depletion (Non Severe: Mild Depletion Weight Status: Underweight RAFAELA ANDERSON MD Jun 24, 2018 16:07
[2018-06-24] MEDS: MORPHINE SULFATE 2 MG/ML VIAL. IV PRN (16:38)
[2018-06-24 19:40] VITALS: BP 122/64
[2018-06-24] MEDS: ATORVASTATIN CALCIUM 20 MG TABLET PO SCH (20:30)
[2018-06-24] MEDS: SERTRALINE 50 MG TABLET. PO SCH (20:30)
[2018-06-24] MEDS: ONDANSETRON PF 4 MG/2 ML VIAL. IV PRN (20:51)
[2018-06-24 23:07] VITALS: BP 174/81
[2018-06-25 03:52] VITALS: BP 136/75
[2018-06-25 06:22] LABS: CALCIUM 9.2 mg/dL (8.5-10.1); CREATININE 0.6 mg/dL (0.6-1.0); GFR 97.7
[2018-06-25 06:24] LABS: BASO % 1 % (0-3); EOS # 0.2 x10^3/uL (0.0-0.7); EOS % 3 % (0-3); HEMATOCRIT 31.3 % (36.0-47.0); HEMOGLOBIN 10.7 g/dL (12.0-15.5); LYMPH # 0.7 x10^3/uL (1.0-4.8); LYMPH % 10 % (24-48); MEAN CORPUSCULAR HEMOGLOBIN 30 pg (25-35); MEAN CORPUSCULAR HGB CONC 34 g/dL (31-37); MEAN CORPUSCULAR VOLUME 89 fL (79-100); MONO # 0.5 x10^3/uL (0.0-1.1); MONO % 7 % (0-9); NEUT # 5.5 x10^3uL (1.8-7.7); NEUT % 79 % (31-73); PLATELET COUNT 184 x10^3/uL (140-400); RED BLOOD COUNT 3.51 x10^6/uL (3.50-5.40); RED CELL DISTRIBUTION WIDTH 13.4 % (11.5-14.5)
[2018-06-25 06:59] LABS: ANTITHROMBIN III SEE SEPARATE REPORT; CARDIOLIPIN ANTIBODIES SEE SEPARATE REPORT; LUPUS ANTICOAGULANT SEE SEPARATE REPORT; PROTEIN C ACTIVITY SEE SEPARATE REPORT; PROTEIN S ACTIVITY SEE SEPARATE REPORT
[2018-06-25 07:51] VITALS: BP 104/49
[2018-06-25] MEDS: MULTIVITAMIN with MINERAL TABLET. PO SCH (09:04)
[2018-06-25] MEDS: DONEPEZIL HCL 10 MG TABLET. PO SCH ×2 (09:04→21:22)
[2018-06-25] MEDS: hydrOXYzine 10 MG TABLET PO SCH (09:04)
[2018-06-25] MEDS: ASPIRIN ENTERIC COATED 81 MG TABLET.DR. PO SCH (09:04)
[2018-06-25] MEDS: MICONAZOLE NITRATE 2% TOPICAL CREAM 28GM TUBE. TP SCH ×2 (09:05→21:22)
[2018-06-25] MEDS: AMINO AC 3%/ELECTROLYTE/GLYCER 1,000 ML IV SCH ×2 (09:20→21:19)
--- NOTE | 2018-06-25 10:42 | PDOC ---
PROGRESS NOTES Chief Complaint Chief Complaint acute hypoxoic respiratory failure, large pulmonary embolism , Saddle PE S/p IVC filter placement 06/21/18 BIlateral leg DVT - new H/o Fall , no injuries Hypoxic respiratory failure secondary to above above Elevated Troponin in the background of saddle PE dementia, chronic encephalopathy DYysphagia - NPO History of Present Illness History of Present Illness t/o out of ICU 06/21/18 BReathing , less tachypnea, less tachycardic Family very involved in care-very pleasant and realistic Did discuss feeding options, NG tube was not an option currently Failed swallow, ProcalAmine Gets tired easy which is affecting swallowing (saddle PE and all) Echo - PA pressures 24 - copy given to dtr Plan: intermittent SALES DEVELOPMENT MANAGER evaluation Continue heparin drip We'll transition to NovelOAC once recommended already by pulmonary In the meantime continue heparin drip, PT OT, high fall risk Came from home, initially very active, gardening etc. Vitals Vitals Vital Signs Date Time Temp Pulse Resp B/P (MAP) Pulse Ox O2 Delivery O2 Flow Rate FiO2 06/25/18 07:51 99.3 60 16 104/49 (67) 97 Nasal Cannula 2.5 99.3 Physical Exam General: Alert, Oriented X3, Cooperative, No acute distress, mild distress, Other (tachypneic LESS) Heart: Regular rate (SR without ectopies), Other (2/6 systolic murmur to LLS border, tachy ) Lungs: Clear Abdomen: Normal bowel sounds, Soft, No tenderness Extremities: No cyanosis, No edema Skin: No rashes, No breakdown, No significant lesion Labs LABS Laboratory Tests Test 06/24/18 13:05 06/25/18 04:35 Heparin Anti-Xa Act, Unfractionated 0.35 IU/mL (0.30-0.70) White Blood Count 7.0 x10^3/uL (4.0-11.0) Red Blood Count 3.51 x10^6/uL (3.50-5.40) Hemoglobin 10.7 g/dL (12.0-15.5) Hematocrit 31.3 % (36.0-47.0) Mean Corpuscular Volume 89 fL (79-100) Mean Corpuscular Hemoglobin 30 pg (25-35) Mean Corpuscular Hemoglobin Concent 34 g/dL (31-37) Red Cell Distribution Width 13.4 % (11.5-14.5) Platelet Count 184 x10^3/uL (140-400) Neutrophils (%) (Auto) 79 % (31-73) Lymphocytes (%) (Auto) 10 % (24-48) Monocytes (%) (Auto) 7 % (0-9) Eosinophils (%) (Auto) 3 % (0-3) Basophils (%) (Auto) 1 % (0-3) Neutrophils # (Auto) 5.5 x10^3uL (1.8-7.7) Lymphocytes # (Auto) 0.7 x10^3/uL (1.0-4.8) Monocytes # (Auto) 0.5 x10^3/uL (0.0-1.1) Eosinophils # (Auto) 0.2 x10^3/uL (0.0-0.7) Basophils # (Auto) 0.0 x10^3/uL (0.0-0.2) Sodium Level 141 mmol/L (136-145) Potassium Level 4.0 mmol/L (3.5-5.1) Chloride Level 106 mmol/L (98-107) Carbon Dioxide Level 29 mmol/L (21-32) Anion Gap 6 (6-14) Blood Urea Nitrogen 12 mg/dL (7-20) Creatinine 0.6 mg/dL (0.6-1.0) Estimated GFR (Cockcroft-Gault) 97.7 Glucose Level 107 mg/dL (70-99) Calcium Level 9.2 mg/dL (8.5-10.1) Comment Review of Relevant I have reviewed the following items gal (where applicable) has been applied. Labs Laboratory Tests Test 06/24/18 04:10 06/24/18 13:05 06/25/18 04:35 White Blood Count 9.7 x10^3/uL (4.0-11.0) 7.0 x10^3/uL (4.0-11.0) Red Blood Count 3.54 x10^6/uL (3.50-5.40) 3.51 x10^6/uL (3.50-5.40) Hemoglobin 10.9 g/dL (12.0-15.5) 10.7 g/dL (12.0-15.5) Hematocrit 31.4 % (36.0-47.0) 31.3 % (36.0-47.0) Mean Corpuscular Volume 89 fL (79-100) 89 fL (79-100) Mean Corpuscular Hemoglobin 31 pg (25-35) 30 pg (25-35) Mean Corpuscular Hemoglobin Concent 35 g/dL (31-37) 34 g/dL (31-37) Red Cell Distribution Width 13.5 % (11.5-14.5) 13.4 % (11.5-14.5) Platelet Count 183 x10^3/uL (140-400) 184 x10^3/uL (140-400) Neutrophils (%) (Auto) 87 % (31-73) 79 % (31-73) Lymphocytes (%) (Auto) 5 % (24-48) 10 % (24-48) Monocytes (%) (Auto) 6 % (0-9) 7 % (0-9) Eosinophils (%) (Auto) 2 % (0-3) 3 % (0-3) Basophils (%) (Auto) 1 % (0-3) 1 % (0-3) Neutrophils # (Auto) 8.4 x10^3uL (1.8-7.7) 5.5 x10^3uL (1.8-7.7) Lymphocytes # (Auto) 0.5 x10^3/uL (1.0-4.8) 0.7 x10^3/uL (1.0-4.8) Monocytes # (Auto) 0.6 x10^3/uL (0.0-1.1) 0.5 x10^3/uL (0.0-1.1) Eosinophils # (Auto) 0.2 x10^3/uL (0.0-0.7) 0.2 x10^3/uL (0.0-0.7) Basophils # (Auto) 0.0 x10^3/uL (0.0-0.2) 0.0 x10^3/uL (0.0-0.2) Heparin Anti-Xa Act, Unfractionated 0.21 IU/mL (0.30-0.70) 0.35 IU/mL (0.30-0.70) Sodium Level 142 mmol/L (136-145) 141 mmol/L (136-145) Potassium Level 3.5 mmol/L (3.5-5.1) 4.0 mmol/L (3.5-5.1) Chloride Level 107 mmol/L (98-107) 106 mmol/L (98-107) Carbon Dioxide Level 26 mmol/L (21-32) 29 mmol/L (21-32) Anion Gap 9 (6-14) 6 (6-14) Blood Urea Nitrogen 10 mg/dL (7-20) 12 mg/dL (7-20) Creatinine 0.6 mg/dL (0.6-1.0) 0.6 mg/dL (0.6-1.0) Estimated GFR (Cockcroft-Gault) 97.7 97.7 Glucose Level 115 mg/dL (70-99) 107 mg/dL (70-99) Calcium Level 8.5 mg/dL (8.5-10.1) 9.2 mg/dL (8.5-10.1) Laboratory Tests Test 06/24/18 13:05 06/25/18 04:35 Heparin Anti-Xa Act, Unfractionated 0.35 IU/mL (0.30-0.70) White Blood Count 7.0 x10^3/uL (4.0-11.0) Red Blood Count 3.51 x10^6/uL (3.50-5.40) Hemoglobin 10.7 g/dL (12.0-15.5) Hematocrit 31.3 % (36.0-47.0) Mean Corpuscular Volume 89 fL (79-100) Mean Corpuscular Hemoglobin 30 pg (25-35) Mean Corpuscular Hemoglobin Concent 34 g/dL (31-37) Red Cell Distribution Width 13.4 % (11.5-14.5) Platelet Count 184 x10^3/uL (140-400) Neutrophils (%) (Auto) 79 % (31-73) Lymphocytes (%) (Auto) 10 % (24-48) Monocytes (%) (Auto) 7 % (0-9) Eosinophils (%) (Auto) 3 % (0-3) Basophils (%) (Auto) 1 % (0-3) Neutrophils # (Auto) 5.5 x10^3uL (1.8-7.7) Lymphocytes # (Auto) 0.7 x10^3/uL (1.0-4.8) Monocytes # (Auto) 0.5 x10^3/uL (0.0-1.1) Eosinophils # (Auto) 0.2 x10^3/uL (0.0-0.7) Basophils # (Auto) 0.0 x10^3/uL (0.0-0.2) Sodium Level 141 mmol/L (136-145) Potassium Level 4.0 mmol/L (3.5-5.1) Chloride Level 106 mmol/L (98-107) Carbon Dioxide Level 29 mmol/L (21-32) Anion Gap 6 (6-14) Blood Urea Nitrogen 12 mg/dL (7-20) Creatinine 0.6 mg/dL (0.6-1.0) Estimated GFR (Cockcroft-Gault) 97.7 Glucose Level 107 mg/dL (70-99) Calcium Level 9.2 mg/dL (8.5-10.1) Microbiology 06/20/18 Blood Culture - Final, Complete NO GROWTH AFTER 5 DAYS Medications Current Medications Ondansetron HCl (Zofran) 4 mg PRN Q6HRS PRN IV NAUSEA/VOMITING; Start at 18:15; Stop 06/19/18 at 19:01; Status DC Sodium Chloride (Normal Saline Flush) 3 ml QSHIFT PRN IV AFTER MEDS AND BLOOD DRAWS; Start 06/19/18 at 18:15 Albuterol/ Ipratropium (Duoneb) 3 ml RTQID NEB Last administered on 06/21/18at 16:38; Start 06/19/18 at 20:00; Stop 06/21/18 at 17:28; Status DC Guaifenesin (Robitussin Dm) 10 ml PRN Q6HRS PRN PO COUGH; Start 06/19/18 at 18 :30 Donepezil HCl (Aricept) 5 mg QHS PO Last administered on 06/20/18at 20:36; Start 06/19/18 at 21:00; Stop 06/21/18 at 08:10; Status DC Sertraline HCl (Zoloft) 25 mg QHS PO Last administered on 06/19/18at 20:35; Start 06/19/18 at 21:00; Stop 06/20/18 at 11:33; Status DC Alprazolam (Xanax) 0.25 mg PRN Q8HRS PRN PO ANXIETY/AGITATION 2ND CHOICE Last administered on 06/22/18at 15:52; Start 06/19/18 at 18:30 Alprazolam (Xanax) 0.25 mg 1X ONCE PO Last administered on 06/19/18at 20:27; Start 06/19/18 at 18:30; Stop 06/19/18 at 18:34; Status DC Hydroxyzine HCl (Atarax) 10 mg PRN Q6HRS PRN PO ITCHING; Start 06/19/18 at 18: 30 Multivitamins (Thera M Plus) 1 tab DAILY PO Last administered on 06/25/18at 09: 04; Start 06/20/18 at 09:00 Heparin Sodium (Porcine) (Heparin Sodium) 4,160 unit 1X ONCE IV Last administered on 06/19/18at 20:27; Start 06/19/18 at 18:30; Stop 06/19/18 at 18 :34; Status DC Heparin Sodium/ Dextrose 500 ml @ 16.64 mls/ hr CONT PRN IV SEE I/O RECORD Last administered on 06/23/18at 20:32; Start 06/19/18 at 18:30; Stop 06/24/18 at 13:41; Status DC Heparin Sodium (Porcine) (Heparin Sodium) 1,560 unit PRN Q6HRS PRN IV FOR UFH LEVEL LESS THAN 0.2 Last administered on 06/21/18at 22:24; Start 06/19/18 at 18 :30; Stop 06/24/18 at 13:42; Status DC Heparin Sodium (Porcine) (Heparin Sodium) 780 unit PRN Q6HRS PRN IV FOR UFH LEVEL 0.2 - 0.29 Last administered on 06/24/18at 06:29; Start 06/19/18 at 18:30 ; Stop 06/24/18 at 13:41; Status DC Acetaminophen/ Hydrocodone Bitart (Lortab 5/325) 1 tab PRN Q4HRS PRN PO MODERATE-SEVERE PAIN Last administered on 06/24/18at 15:22; Start 06/19/18 at 18:30 Acetaminophen (Tylenol) 500 mg PRN Q6HRS PRN PO MILD PAIN / TEMP; Start at 18:30 Ondansetron HCl (Zofran) 4 mg PRN Q6HRS PRN IV NAUSEA/VOMITING Last administered on 06/24/18at 20:51; Start 06/19/18 at 18:30 Ondansetron HCl (Zofran Odt) 4 mg PRN Q6HRS PRN PO NAUSEA/VOMITING Last administered on 06/23/18at 10:56; Start 06/19/18 at 18:30 Heparin Sodium (Porcine) (Heparin Sodium) 4,150 unit 1X ONCE IV ; Start at 18:30; Stop 06/19/18 at 18:31; Status UNV Heparin Sodium/ Dextrose 500 ml @ 0 mls/hr CONT PRN IV SEE I/O RECORD; Start 06/19/18 at 18:30; Status UNV Heparin Sodium (Porcine) (Heparin Sodium) 1,550 unit PRN Q6HRS PRN IV FOR UFH LEVEL LESS THAN 0.2; Start 06/19/18 at 18:30; Status UNV Heparin Sodium (Porcine) (Heparin Sodium) 800 unit PRN Q6HRS PRN IV FOR UFH LEVEL 0.2 - 0.29; Start 06/19/18 at 18:30; Status UNV Lorazepam (Ativan) 0.5 mg PRN Q8HRS PRN PO ANXIETY/AGITATION 1ST CHOICE Last administered on 06/23/18at 14:19; Start 06/19/18 at 19:00 Sodium Chloride 1,000 ml @ 80 mls/hr [id number] IV Last administered on at 09:56; Start 06/19/18 at 20:45; Stop 06/22/18 at 13:05; Status DC Influenza Virus Vaccine (Afluria Trivalent 9920-5850 Syringe) 0.5 ml ONCE ONCE VAX IM ; Start 06/20/18 at 09:00; Stop 06/20/18 at 09:01; Status DC Info (Anti-Coagulation Monitoring By Pharmacy) 1 each PRN DAILY PRN MC SEE COMMENTS Last administered on 06/24/18at 10:56; Start 06/20/18 at 09:00 Aspirin (Ecotrin) 81 mg [id number] PO Last administered on 06/25/18at 09:04; Start 06/20/18 at 12:00 Sertraline HCl (Zoloft) 150 mg HS PO Last administered on 06/24/18at 20:30; Start 06/20/18 at 21:00 Donepezil HCl (Aricept) 10 mg BID PO Last administered on 06/25/18at 09:04; Start 06/20/18 at 12:00 Hydroxyzine HCl (Atarax) 10 mg DAILY PO Last administered on 06/25/18at 09:04; Start 06/20/18 at 12:00 Hydroxyzine HCl (Atarax) 10 mg QHS PRN PO ANXIETY/AGITATION; Start 06/20/18 at 11:45; Stop 06/23/18 at 16:53; Status DC Non-Formulary Medication (Multivitamin/ Iron/Folic Acid (Centrum Complete Multivit Tab)) 1 each DAILY PO ; Start 06/21/18 at 09:00; Status UNV Non-Formulary Medication (Sertraline Hcl (Zoloft)) 100 mg HS PO ; Start at 21:00; Status UNV Atorvastatin Calcium (Lipitor) 20 mg QHS PO Last administered on 06/24/18at 20: 30; Start 06/20/18 at 21:00 Sodium Chloride 500 ml @ 500 mls/hr 1X ONCE IV Last administered on at 00:37; Start 06/21/18 at 01:00; Stop 06/21/18 at 01:59; Status DC Lidocaine/Sodium Bicarbonate (Buffered Lidocaine 1%) 3 ml STK-MED ONCE .ROUTE ; Start 06/21/18 at 09:32; Stop 06/21/18 at 09:33; Status DC Iohexol (Omnipaque 240 Mg/ml) 50 ml STK-MED ONCE .ROUTE ; Start 06/21/18 at 09: 32; Stop 06/21/18 at 09:33; Status DC Lidocaine/Sodium Bicarbonate (Buffered Lidocaine 1%) 3 ml 1X ONCE IJ Last administered on 06/21/18at 10:16; Start 06/21/18 at 10:15; Stop 06/21/18 at 10 :16; Status DC Iohexol (Omnipaque 240 Mg/ml) 50 ml 1X ONCE IV Last administered on at 10:17; Start 06/21/18 at 10:15; Stop 06/21/18 at 10:16; Status DC Miconazole Nitrate (Monistat-Derm) 1 cali BID TP Last administered on at 09:05; Start 06/21/18 at 14:00 Albuterol/ Ipratropium (Duoneb) 3 ml RTQID PRN NEB SHORTNESS OF BREATH Last administered on 06/22/18at 07:52; Start 06/21/18 at 17:30 Influenza Virus Vaccine (Afluria Trivalent [id number] Syringe) 0.5 ml ONCE ONCE VAX IM Last administered on 06/21/18at 21:23; Start 06/21/18 at 21:00; Stop 06/21/18 at 21:01; Status DC Amino Acids/ Glycerin/ Electrolytes 1,000 ml @ 80 mls/hr [id number] IV Last administered on 06/24/18at 04:29; Start 06/22/18 at 13:15; Stop 06/24/18 at 13 :34; Status DC Hydroxyzine HCl (Atarax) 10 mg PRN QHS PRN PO ANXIETY/AGITATION; Start at 17:00 Morphine Sulfate (Morphine Sulfate) 1 mg PRN Q4HRS PRN IV MODERATE PAIN Last administered on 06/24/18at 16:38; Start 06/23/18 at 20:00 Lorazepam (Ativan) 1 mg PRN Q4HRS PRN IV ANXIETY / AGITATION Last administered on 06/24/18at 20:51; Start 06/23/18 at 20:00 Apixaban (Eliquis) 5 mg BID PO ; Start 06/24/18 at 13:45; Status Cancel Enoxaparin Sodium (Lovenox 60mg Syringe) 50 mg Q12HR SQ Last administered on at 09:05; Start 06/24/18 at 14:00 Amino Acids/ Glycerin/ Electrolytes 1,000 ml @ 75 mls/hr [id number] IV Last administered on 06/25/18at 09:20; Start 06/24/18 at 20:00 Active Scripts Active Antifungal Cream (Miconazole Nitrate) 14 Gm Cream..g. 1 Cali TP BID Reported Centrum Complete Multivit Tab (Multivitamin/Iron/Folic Acid) 1 Each Tablet 1 Each PO DAILY Hydroxyzine Hcl 10 Mg/5 Ml Syrup 10 Mg PO HS PRN Zoloft (Sertraline Hcl) 100 Mg Tablet 100 Mg PO HS Zoloft (Sertraline Hcl) 50 Mg Tablet 50 Mg PO HS Aricept (Donepezil Hcl) 23 Mg Tablet 23 Mg PO HS Hydroxyzine Hcl 10 Mg/5 Ml Syrup 10 Mg PO DAILY Vitals/I & O Vital Sign - Last 24 Hours 06/24/18 06/24/18 06/24/18 06/24/18 11:10 15:22 15:58 16:35 Temp 97.5 97.5 97.5 97.5 Pulse 70 63 Resp 18 18 B/P (MAP) 108/71 (83) 114/66 (82) Pulse Ox 96 97 97 O2 Delivery Room Air Room Air Room Air Nasal Cannula O2 Flow Rate 2.0 06/24/18 06/24/18 06/24/18 06/24/18 16:38 19:40 20:15 23:07 Temp 97.7 98.3 97.7 98.3 Pulse 67 70 Resp 16 16 B/P (MAP) 122/64 (83) 174/81 (112) Pulse Ox 97 94 95 O2 Delivery Nasal Cannula Room Air Nasal Cannula Room Air O2 Flow Rate 2.0 2.0 06/25/18 06/25/18 03:52 07:51 Temp 97.7 99.3 97.7 99.3 Pulse 60 60 Resp 16 16 B/P (MAP) 136/75 (95) 104/49 (67) Pulse Ox 99 97 O2 Delivery Nasal Cannula Nasal Cannula O2 Flow Rate 2.0 2.5 Intake and Output 06/24/18 06/24/18 06/25/18 15:00 23:00 07:00 Intake Total 1000 ml 0 ml Output Total 650 ml Balance 1000 ml -650 ml Nutrition Consultation Dietary Evaluation: Recommendations by RD: Increase Calorie Intake, Protein supplementation, PPN/ TPN Comments: REC advance diet to GI soft/regular w/textures per SALES DEVELOPMENT MANAGER REC Ensure TID continue PPN until able to advance diet Expected Outcomes/Goals: PO intake to meet >75% est needs Malnutrition Findings: Body Fat Depletion (Non Severe: Mild Depletion Weight Status: Underweight SWATI JOYNER MD Jun 25, 2018 10:42
[2018-06-25 11:30] VITALS: BP 107/65
[2018-06-25] MEDS: ANTI-COAG MONITOR BY PHARMACY. MC PRN (13:16)
--- NOTE | 2018-06-25 14:07 | PDOC ---
PULMONARY PROGRESS NOTES Subjective PT NOT MORE SOA Vitals Vital Signs Date Time Temp Pulse Resp B/P (MAP) Pulse Ox O2 Delivery O2 Flow Rate FiO2 06/25/18 11:30 98.4 68 18 107/65 (79) 98 Nasal Cannula 2.0 98.4 ROS: No Nausea, No Chest Pain, No Abdominal Pain, No Increase Cough General: Alert Lungs: Clear Cardiovascular: S1, S2 Abdomen: Soft Neuro Exam: Alert Extremities: No Edema Skin: Warm Labs Laboratory Tests Test 06/24/18 04:10 06/24/18 13:05 06/25/18 04:35 White Blood Count 9.7 x10^3/uL (4.0-11.0) 7.0 x10^3/uL (4.0-11.0) Red Blood Count 3.54 x10^6/uL (3.50-5.40) 3.51 x10^6/uL (3.50-5.40) Hemoglobin 10.9 g/dL (12.0-15.5) 10.7 g/dL (12.0-15.5) Hematocrit 31.4 % (36.0-47.0) 31.3 % (36.0-47.0) Mean Corpuscular Volume 89 fL (79-100) 89 fL (79-100) Mean Corpuscular Hemoglobin 31 pg (25-35) 30 pg (25-35) Mean Corpuscular Hemoglobin Concent 35 g/dL (31-37) 34 g/dL (31-37) Red Cell Distribution Width 13.5 % (11.5-14.5) 13.4 % (11.5-14.5) Platelet Count 183 x10^3/uL (140-400) 184 x10^3/uL (140-400) Neutrophils (%) (Auto) 87 % (31-73) 79 % (31-73) Lymphocytes (%) (Auto) 5 % (24-48) 10 % (24-48) Monocytes (%) (Auto) 6 % (0-9) 7 % (0-9) Eosinophils (%) (Auto) 2 % (0-3) 3 % (0-3) Basophils (%) (Auto) 1 % (0-3) 1 % (0-3) Neutrophils # (Auto) 8.4 x10^3uL (1.8-7.7) 5.5 x10^3uL (1.8-7.7) Lymphocytes # (Auto) 0.5 x10^3/uL (1.0-4.8) 0.7 x10^3/uL (1.0-4.8) Monocytes # (Auto) 0.6 x10^3/uL (0.0-1.1) 0.5 x10^3/uL (0.0-1.1) Eosinophils # (Auto) 0.2 x10^3/uL (0.0-0.7) 0.2 x10^3/uL (0.0-0.7) Basophils # (Auto) 0.0 x10^3/uL (0.0-0.2) 0.0 x10^3/uL (0.0-0.2) Heparin Anti-Xa Act, Unfractionated 0.21 IU/mL (0.30-0.70) 0.35 IU/mL (0.30-0.70) Sodium Level 142 mmol/L (136-145) 141 mmol/L (136-145) Potassium Level 3.5 mmol/L (3.5-5.1) 4.0 mmol/L (3.5-5.1) Chloride Level 107 mmol/L (98-107) 106 mmol/L (98-107) Carbon Dioxide Level 26 mmol/L (21-32) 29 mmol/L (21-32) Anion Gap 9 (6-14) 6 (6-14) Blood Urea Nitrogen 10 mg/dL (7-20) 12 mg/dL (7-20) Creatinine 0.6 mg/dL (0.6-1.0) 0.6 mg/dL (0.6-1.0) Estimated GFR (Cockcroft-Gault) 97.7 97.7 Glucose Level 115 mg/dL (70-99) 107 mg/dL (70-99) Calcium Level 8.5 mg/dL (8.5-10.1) 9.2 mg/dL (8.5-10.1) Laboratory Tests Test 06/25/18 04:35 White Blood Count 7.0 x10^3/uL (4.0-11.0) Red Blood Count 3.51 x10^6/uL (3.50-5.40) Hemoglobin 10.7 g/dL (12.0-15.5) Hematocrit 31.3 % (36.0-47.0) Mean Corpuscular Volume 89 fL (79-100) Mean Corpuscular Hemoglobin 30 pg (25-35) Mean Corpuscular Hemoglobin Concent 34 g/dL (31-37) Red Cell Distribution Width 13.4 % (11.5-14.5) Platelet Count 184 x10^3/uL (140-400) Neutrophils (%) (Auto) 79 % (31-73) Lymphocytes (%) (Auto) 10 % (24-48) Monocytes (%) (Auto) 7 % (0-9) Eosinophils (%) (Auto) 3 % (0-3) Basophils (%) (Auto) 1 % (0-3) Neutrophils # (Auto) 5.5 x10^3uL (1.8-7.7) Lymphocytes # (Auto) 0.7 x10^3/uL (1.0-4.8) Monocytes # (Auto) 0.5 x10^3/uL (0.0-1.1) Eosinophils # (Auto) 0.2 x10^3/uL (0.0-0.7) Basophils # (Auto) 0.0 x10^3/uL (0.0-0.2) Sodium Level 141 mmol/L (136-145) Potassium Level 4.0 mmol/L (3.5-5.1) Chloride Level 106 mmol/L (98-107) Carbon Dioxide Level 29 mmol/L (21-32) Anion Gap 6 (6-14) Blood Urea Nitrogen 12 mg/dL (7-20) Creatinine 0.6 mg/dL (0.6-1.0) Estimated GFR (Cockcroft-Gault) 97.7 Glucose Level 107 mg/dL (70-99) Calcium Level 9.2 mg/dL (8.5-10.1) Medications Active Scripts Medications Dose Route/Sig Max Daily Dose Days Date Category Centrum Complete Multivit Tab (Multivitamin/Iron/Folic Acid) 1 Each Tablet 1 Each PO DAILY 06/20/18 Reported Hydroxyzine Hcl 10 Mg/5 Ml Syrup 10 Mg PO HS PRN 06/20/18 Reported Zoloft (Sertraline Hcl) 100 Mg Tablet 100 Mg PO HS 06/20/18 Reported Zoloft (Sertraline Hcl) 50 Mg Tablet 50 Mg PO HS 06/20/18 Reported Aricept (Donepezil Hcl) 23 Mg Tablet 23 Mg PO HS 06/20/18 Reported Hydroxyzine Hcl 10 Mg/5 Ml Syrup 10 Mg PO DAILY 06/19/18 Reported Impression . IMPRESSION: 1. Acute pulmonary embolism. 2. Acute respiratory distress secondary to above. resolved 3. Recent near syncopal episode secondary to acute pulmonary embolism. 4. Echocardiogram revealing no significant right heart strain, mild elevation in pulmonary artery pressure, suspected pulmonary embolism was not acute, but subacute, the patient remained hemodynamically stable throughout her stay. 5. The patient at risk for fall with subsequent complications of utilizing anticoagulation. 6. Non-ST segment elevation myocardial infarction, elevated troponin level. possible RV Infarct 7.dysphagia/ choking on food 06/21 Impression: 1. Infrarenal permanent IVC filter placement as described Plan . LOVENOX till discharge PPN Speech following RISK OF FALL IS HIGH/ NO INTERMEDIATE AC LILLIE HOUGH MD Jun 25, 2018 14:07
[2018-06-25 15:36] VITALS: BP 121/71
[2018-06-25 19:46] VITALS: BP 117/67
[2018-06-25] MEDS: ATORVASTATIN CALCIUM 20 MG TABLET PO SCH (21:21)
[2018-06-25] MEDS: SERTRALINE 50 MG TABLET. PO SCH (21:22)
[2018-06-25] MEDS: ONDANSETRON PF 4 MG/2 ML VIAL. IV PRN (22:07)
[2018-06-25 23:32] VITALS: BP 121/65
[2018-06-26] VITALS (7 sets, daily range): BP systolic 98–127; BP diastolic 45–68
[2018-06-26] MEDS: MICONAZOLE NITRATE 2% TOPICAL CREAM 28GM TUBE. TP SCH ×2 (09:00→20:47)
--- NOTE | 2018-06-26 09:20 | PDOC2 ---
GI CONSULT Reason For Consult: High aspiration HPI: HPI: 72 y/o female transferred from [facility] on 06/19 w/ near syncope (?and seizure), NSTEMI, also found to have PE and DVT, now s/p IVC filter placement. Failed swallow eval and we were asked to see for same. is with patient at bedside this morning - he says feeding tube possibility has been mentioned but his daughter makes most of the decisions and she's note here right now. RN says speech to see again today. On PPN and Lovenox. Reviewed other notes - needs PEG or TPN to qualify for SNU. EGD 12/2016 for epigastric pain performed by Dr. Mon showed normal esophagus , chronic gastritis, normal duodenum. Office notes indicate h/o duodenal adenoma in 2007. PMH: PMH: per chart - dementia, TIA, HLD, anxiety/depression, bipolar, goiter, OA, osteoporosis, GERD, urinary incontinence, cervical fusion, lumbar surgery, right CTR, tonsillectomy, hemorrhoidectomy, thyroid biopsy FH: Family History: Cancer (mother - ovarian) Social History: Smoke: Quit ALCOHOL: none Drugs: None ROS: Difficult to obtain. Vitals: Vitals: Vital Signs Date Time Temp Pulse Resp B/P (MAP) Pulse Ox O2 Delivery O2 Flow Rate FiO2 06/26/18 07:00 97.7 65 18 98/45 (62) 96 Nasal Cannula 2.0 97.7 Allergies: Coded Allergies: No Known Drug Allergies (Unverified , 02/06/17) Medications: Please see EMR. Imaging: Imaging: LE US IMPRESSION: 1. Right popliteal vein DVT and left calf vein DVT. Ankle X-Ray IMPRESSION: No acute bony abnormality is detected. Echocardiogram <Conclusion> The left ventricular systolic function is normal. The Ejection Fraction is 60-65%. There is normal LV segmental wall motion. Transmitral Doppler flow pattern is Grade I-abnormal relaxation pattern. Mild tricuspid regurgitation. The PA pressure was estimated at 24 mmHg. There is no evidence of significant pericardial effusion. Dysphagia follow up. Respiratory status (SOA) and weakness continue negatively impacting timing of swallow and likely also completeness of airway closure during swallow. Pt appears at high risk of aspiration r/t same. Anticipate improvement in dysphagia w/improvements in respiratory function. However it is undetermined length of time NPO will be needed and question amount/sufficiency of intake when pt is safe to return to PO. RECOMMENDATIONS: NPO except ice chips 1-2 at a time, meds crushed in applesauce. IRRIGATION WORKER to f/u for progress toward safe swallow for po intake. Nutrition consult. PE: GEN: NAD, frail HEENT: Atraumatic, PERRL LUNGS: NC, poor effort HEART: RRR ABD: S/ND/NT EXTREMITY: No edema SKIN: No rashes, no jaundice NEURO/PSYCH: answers some questions appropriately - RN says can be confused A/P: A/P: PE, DVT - s/p IVC filter NSTEMI Near syncope Dysphagia Dementia H/o duodenal adenoma - unrevealing in 2017 CRC screen - unclear -- I explained PEG procedure and associated risks. indicates their daughter helps make medical decisions - await her input. ?benefit from PC discussion PEDRO AGARWAL Jun 26, 2018 09:20
[2018-06-26 09:23] LABS: BASO % 0 % (0-3); EOS # 0.2 x10^3/uL (0.0-0.7); EOS % 3 % (0-3); HEMATOCRIT 30.9 % (36.0-47.0); HEMOGLOBIN 10.8 g/dL (12.0-15.5); LYMPH # 0.5 x10^3/uL (1.0-4.8); LYMPH % 7 % (24-48); MEAN CORPUSCULAR HEMOGLOBIN 31 pg (25-35); MEAN CORPUSCULAR HGB CONC 35 g/dL (31-37); MEAN CORPUSCULAR VOLUME 89 fL (79-100); MONO # 0.5 x10^3/uL (0.0-1.1); MONO % 7 % (0-9); NEUT # 6.6 x10^3uL (1.8-7.7); NEUT % 84 % (31-73); PLATELET COUNT 210 x10^3/uL (140-400); RED BLOOD COUNT 3.46 x10^6/uL (3.50-5.40); RED CELL DISTRIBUTION WIDTH 13.2 % (11.5-14.5); WHITE BLOOD COUNT 7.9 x10^3/uL (4.0-11.0)
--- NOTE | 2018-06-26 09:49 | PDOC ---
PULMONARY PROGRESS NOTES Subjective PT VERY WEAK Vitals Vital Signs Date Time Temp Pulse Resp B/P (MAP) Pulse Ox O2 Delivery O2 Flow Rate FiO2 06/26/18 07:00 97.7 65 18 98/45 (62) 96 Nasal Cannula 2.0 97.7 ROS: No Nausea, No Chest Pain, No Abdominal Pain, No Increase Cough General: Lethargic Lungs: Clear Cardiovascular: S1, S2 Abdomen: Soft Neuro Exam: Alert Extremities: No Edema Skin: Warm Labs Laboratory Tests Test 06/24/18 13:05 06/25/18 04:35 06/26/18 08:20 Heparin Anti-Xa Act, Unfractionated 0.35 IU/mL (0.30-0.70) White Blood Count 7.0 x10^3/uL (4.0-11.0) 7.9 x10^3/uL (4.0-11.0) Red Blood Count 3.51 x10^6/uL (3.50-5.40) 3.46 x10^6/uL (3.50-5.40) Hemoglobin 10.7 g/dL (12.0-15.5) 10.8 g/dL (12.0-15.5) Hematocrit 31.3 % (36.0-47.0) 30.9 % (36.0-47.0) Mean Corpuscular Volume 89 fL (79-100) 89 fL (79-100) Mean Corpuscular Hemoglobin 30 pg (25-35) 31 pg (25-35) Mean Corpuscular Hemoglobin Concent 34 g/dL (31-37) 35 g/dL (31-37) Red Cell Distribution Width 13.4 % (11.5-14.5) 13.2 % (11.5-14.5) Platelet Count 184 x10^3/uL (140-400) 210 x10^3/uL (140-400) Neutrophils (%) (Auto) 79 % (31-73) 84 % (31-73) Lymphocytes (%) (Auto) 10 % (24-48) 7 % (24-48) Monocytes (%) (Auto) 7 % (0-9) 7 % (0-9) Eosinophils (%) (Auto) 3 % (0-3) 3 % (0-3) Basophils (%) (Auto) 1 % (0-3) 0 % (0-3) Neutrophils # (Auto) 5.5 x10^3uL (1.8-7.7) 6.6 x10^3uL (1.8-7.7) Lymphocytes # (Auto) 0.7 x10^3/uL (1.0-4.8) 0.5 x10^3/uL (1.0-4.8) Monocytes # (Auto) 0.5 x10^3/uL (0.0-1.1) 0.5 x10^3/uL (0.0-1.1) Eosinophils # (Auto) 0.2 x10^3/uL (0.0-0.7) 0.2 x10^3/uL (0.0-0.7) Basophils # (Auto) 0.0 x10^3/uL (0.0-0.2) 0.0 x10^3/uL (0.0-0.2) Sodium Level 141 mmol/L (136-145) Potassium Level 4.0 mmol/L (3.5-5.1) Chloride Level 106 mmol/L (98-107) Carbon Dioxide Level 29 mmol/L (21-32) Anion Gap 6 (6-14) Blood Urea Nitrogen 12 mg/dL (7-20) Creatinine 0.6 mg/dL (0.6-1.0) Estimated GFR (Cockcroft-Gault) 97.7 Glucose Level 107 mg/dL (70-99) Calcium Level 9.2 mg/dL (8.5-10.1) Laboratory Tests Test 06/26/18 08:20 White Blood Count 7.9 x10^3/uL (4.0-11.0) Red Blood Count 3.46 x10^6/uL (3.50-5.40) Hemoglobin 10.8 g/dL (12.0-15.5) Hematocrit 30.9 % (36.0-47.0) Mean Corpuscular Volume 89 fL (79-100) Mean Corpuscular Hemoglobin 31 pg (25-35) Mean Corpuscular Hemoglobin Concent 35 g/dL (31-37) Red Cell Distribution Width 13.2 % (11.5-14.5) Platelet Count 210 x10^3/uL (140-400) Neutrophils (%) (Auto) 84 % (31-73) Lymphocytes (%) (Auto) 7 % (24-48) Monocytes (%) (Auto) 7 % (0-9) Eosinophils (%) (Auto) 3 % (0-3) Basophils (%) (Auto) 0 % (0-3) Neutrophils # (Auto) 6.6 x10^3uL (1.8-7.7) Lymphocytes # (Auto) 0.5 x10^3/uL (1.0-4.8) Monocytes # (Auto) 0.5 x10^3/uL (0.0-1.1) Eosinophils # (Auto) 0.2 x10^3/uL (0.0-0.7) Basophils # (Auto) 0.0 x10^3/uL (0.0-0.2) Medications Active Scripts Medications Dose Route/Sig Max Daily Dose Days Date Category Centrum Complete Multivit Tab (Multivitamin/Iron/Folic Acid) 1 Each Tablet 1 Each PO DAILY 06/20/18 Reported Hydroxyzine Hcl 10 Mg/5 Ml Syrup 10 Mg PO HS PRN 06/20/18 Reported Zoloft (Sertraline Hcl) 100 Mg Tablet 100 Mg PO HS 06/20/18 Reported Zoloft (Sertraline Hcl) 50 Mg Tablet 50 Mg PO HS 06/20/18 Reported Aricept (Donepezil Hcl) 23 Mg Tablet 23 Mg PO HS 06/20/18 Reported Hydroxyzine Hcl 10 Mg/5 Ml Syrup 10 Mg PO DAILY 06/19/18 Reported Impression . IMPRESSION: 1. Acute pulmonary embolism. 2. Acute respiratory distress secondary to above. resolved 3. Recent near syncopal episode secondary to acute pulmonary embolism. 4. Echocardiogram revealing no significant right heart strain, mild elevation in pulmonary artery pressure, suspected pulmonary embolism was not acute, but subacute, the patient remained hemodynamically stable throughout her stay. 5. The patient at risk for fall with subsequent complications of utilizing anticoagulation. 6. Non-ST segment elevation myocardial infarction, elevated troponin level. possible RV Infarct 7.dysphagia/ choking on food 06/21 Impression: 1. Infrarenal permanent IVC filter placement as described Plan . LOVENOX till discharge PPN Speech following RISK OF FALL IS HIGH/ NO FLOW WORKER AC Very poor functional status d/w rec palliative care to go over goals of care LILLIE HOUGH MD Jun 26, 2018 09:49
[2018-06-26 09:51] LABS: CREATININE 0.6 mg/dL (0.6-1.0); GFR 97.7
[2018-06-26] MEDS: AMINO AC 3%/ELECTROLYTE/GLYCER 1,000 ML IV SCH ×2 (10:02→20:48)
[2018-06-26] MEDS: hydrOXYzine 10 MG TABLET PO SCH (10:02)
[2018-06-26] MEDS: MULTIVITAMIN with MINERAL TABLET. PO SCH (10:02)
[2018-06-26] MEDS: DONEPEZIL HCL 10 MG TABLET. PO SCH ×2 (10:03→20:47)
[2018-06-26] MEDS: ASPIRIN ENTERIC COATED 81 MG TABLET.DR. PO SCH (10:03)
[2018-06-26] MEDS: ANTI-COAG MONITOR BY PHARMACY. MC PRN (12:09)
--- NOTE | 2018-06-26 13:15 | PDOC ---
PROGRESS NOTES Chief Complaint Chief Complaint impression acute hypoxoic respiratory failure, large pulmonary embolism , Saddle PE S/p IVC filter placement 06/21/18 BIlateral leg DVT - new H/o Fall , no injuries Hypoxic respiratory failure secondary to above above Elevated Troponin in the background of saddle PE dementia, chronic encephalopathy DYysphagia - NPO VERY WEAK, CONSIDER palliative care History of Present Illness History of Present Illness t/o out of ICU 06/21/18 BReathing , less tachypnea, less tachycardic Family very involved in care-very pleasant and realistic Did discuss feeding options, NG tube was not an option currently Failed swallow, ProcalAmine Gets tired easy which is affecting swallowing (saddle PE and all) Echo - PA pressures 24 - copy given to dtr Plan: intermittent CERTIFIED PATHOLOGY ASSISTANT evaluation Continue heparin drip We'll transition to NovelOAC once recommended already by pulmonary In the meantime continue heparin drip, PT OT, high fall risk Came from home, initially very active, gardening etc. Vitals Vitals Vital Signs Date Time Temp Pulse Resp B/P (MAP) Pulse Ox O2 Delivery O2 Flow Rate FiO2 06/26/18 10:56 97.4 71 18 107/52 (70) 97 Nasal Cannula 2.0 97.4 Physical Exam General: Alert, Oriented X3, Cooperative, No acute distress, mild distress, Other (tachypneic LESS) Heart: Regular rate (SR without ectopies), Other (2/6 systolic murmur to LLS border, tachy ) Lungs: Clear Abdomen: Normal bowel sounds, Soft, No tenderness Extremities: No cyanosis, No edema Skin: No rashes, No breakdown, No significant lesion Labs LABS Laboratory Tests Test 06/26/18 08:20 White Blood Count 7.9 x10^3/uL (4.0-11.0) Red Blood Count 3.46 x10^6/uL (3.50-5.40) Hemoglobin 10.8 g/dL (12.0-15.5) Hematocrit 30.9 % (36.0-47.0) Mean Corpuscular Volume 89 fL (79-100) Mean Corpuscular Hemoglobin 31 pg (25-35) Mean Corpuscular Hemoglobin Concent 35 g/dL (31-37) Red Cell Distribution Width 13.2 % (11.5-14.5) Platelet Count 210 x10^3/uL (140-400) Neutrophils (%) (Auto) 84 % (31-73) Lymphocytes (%) (Auto) 7 % (24-48) Monocytes (%) (Auto) 7 % (0-9) Eosinophils (%) (Auto) 3 % (0-3) Basophils (%) (Auto) 0 % (0-3) Neutrophils # (Auto) 6.6 x10^3uL (1.8-7.7) Lymphocytes # (Auto) 0.5 x10^3/uL (1.0-4.8) Monocytes # (Auto) 0.5 x10^3/uL (0.0-1.1) Eosinophils # (Auto) 0.2 x10^3/uL (0.0-0.7) Basophils # (Auto) 0.0 x10^3/uL (0.0-0.2) Sodium Level 140 mmol/L (136-145) Potassium Level 4.0 mmol/L (3.5-5.1) Chloride Level 104 mmol/L (98-107) Carbon Dioxide Level 29 mmol/L (21-32) Anion Gap 7 (6-14) Blood Urea Nitrogen 12 mg/dL (7-20) Creatinine 0.6 mg/dL (0.6-1.0) Estimated GFR (Cockcroft-Gault) 97.7 Glucose Level 102 mg/dL (70-99) Calcium Level 9.0 mg/dL (8.5-10.1) Comment Review of Relevant I have reviewed the following items gal (where applicable) has been applied. Labs Laboratory Tests Test 06/25/18 04:35 06/26/18 08:20 White Blood Count 7.0 x10^3/uL (4.0-11.0) 7.9 x10^3/uL (4.0-11.0) Red Blood Count 3.51 x10^6/uL (3.50-5.40) 3.46 x10^6/uL (3.50-5.40) Hemoglobin 10.7 g/dL (12.0-15.5) 10.8 g/dL (12.0-15.5) Hematocrit 31.3 % (36.0-47.0) 30.9 % (36.0-47.0) Mean Corpuscular Volume 89 fL (79-100) 89 fL (79-100) Mean Corpuscular Hemoglobin 30 pg (25-35) 31 pg (25-35) Mean Corpuscular Hemoglobin Concent 34 g/dL (31-37) 35 g/dL (31-37) Red Cell Distribution Width 13.4 % (11.5-14.5) 13.2 % (11.5-14.5) Platelet Count 184 x10^3/uL (140-400) 210 x10^3/uL (140-400) Neutrophils (%) (Auto) 79 % (31-73) 84 % (31-73) Lymphocytes (%) (Auto) 10 % (24-48) 7 % (24-48) Monocytes (%) (Auto) 7 % (0-9) 7 % (0-9) Eosinophils (%) (Auto) 3 % (0-3) 3 % (0-3) Basophils (%) (Auto) 1 % (0-3) 0 % (0-3) Neutrophils # (Auto) 5.5 x10^3uL (1.8-7.7) 6.6 x10^3uL (1.8-7.7) Lymphocytes # (Auto) 0.7 x10^3/uL (1.0-4.8) 0.5 x10^3/uL (1.0-4.8) Monocytes # (Auto) 0.5 x10^3/uL (0.0-1.1) 0.5 x10^3/uL (0.0-1.1) Eosinophils # (Auto) 0.2 x10^3/uL (0.0-0.7) 0.2 x10^3/uL (0.0-0.7) Basophils # (Auto) 0.0 x10^3/uL (0.0-0.2) 0.0 x10^3/uL (0.0-0.2) Sodium Level 141 mmol/L (136-145) 140 mmol/L (136-145) Potassium Level 4.0 mmol/L (3.5-5.1) 4.0 mmol/L (3.5-5.1) Chloride Level 106 mmol/L (98-107) 104 mmol/L (98-107) Carbon Dioxide Level 29 mmol/L (21-32) 29 mmol/L (21-32) Anion Gap 6 (6-14) 7 (6-14) Blood Urea Nitrogen 12 mg/dL (7-20) 12 mg/dL (7-20) Creatinine 0.6 mg/dL (0.6-1.0) 0.6 mg/dL (0.6-1.0) Estimated GFR (Cockcroft-Gault) 97.7 97.7 Glucose Level 107 mg/dL (70-99) 102 mg/dL (70-99) Calcium Level 9.2 mg/dL (8.5-10.1) 9.0 mg/dL (8.5-10.1) Laboratory Tests Test 06/26/18 08:20 White Blood Count 7.9 x10^3/uL (4.0-11.0) Red Blood Count 3.46 x10^6/uL (3.50-5.40) Hemoglobin 10.8 g/dL (12.0-15.5) Hematocrit 30.9 % (36.0-47.0) Mean Corpuscular Volume 89 fL (79-100) Mean Corpuscular Hemoglobin 31 pg (25-35) Mean Corpuscular Hemoglobin Concent 35 g/dL (31-37) Red Cell Distribution Width 13.2 % (11.5-14.5) Platelet Count 210 x10^3/uL (140-400) Neutrophils (%) (Auto) 84 % (31-73) Lymphocytes (%) (Auto) 7 % (24-48) Monocytes (%) (Auto) 7 % (0-9) Eosinophils (%) (Auto) 3 % (0-3) Basophils (%) (Auto) 0 % (0-3) Neutrophils # (Auto) 6.6 x10^3uL (1.8-7.7) Lymphocytes # (Auto) 0.5 x10^3/uL (1.0-4.8) Monocytes # (Auto) 0.5 x10^3/uL (0.0-1.1) Eosinophils # (Auto) 0.2 x10^3/uL (0.0-0.7) Basophils # (Auto) 0.0 x10^3/uL (0.0-0.2) Sodium Level 140 mmol/L (136-145) Potassium Level 4.0 mmol/L (3.5-5.1) Chloride Level 104 mmol/L (98-107) Carbon Dioxide Level 29 mmol/L (21-32) Anion Gap 7 (6-14) Blood Urea Nitrogen 12 mg/dL (7-20) Creatinine 0.6 mg/dL (0.6-1.0) Estimated GFR (Cockcroft-Gault) 97.7 Glucose Level 102 mg/dL (70-99) Calcium Level 9.0 mg/dL (8.5-10.1) Microbiology 06/20/18 Blood Culture - Final, Complete NO GROWTH AFTER 5 DAYS Medications Current Medications Ondansetron HCl (Zofran) 4 mg PRN Q6HRS PRN IV NAUSEA/VOMITING; Start at 18:15; Stop 06/19/18 at 19:01; Status DC Sodium Chloride (Normal Saline Flush) 3 ml QSHIFT PRN IV AFTER MEDS AND BLOOD DRAWS; Start 06/19/18 at 18:15 Albuterol/ Ipratropium (Duoneb) 3 ml RTQID NEB Last administered on 06/21/18at 16:38; Start 06/19/18 at 20:00; Stop 06/21/18 at 17:28; Status DC Guaifenesin (Robitussin Dm) 10 ml PRN Q6HRS PRN PO COUGH; Start 06/19/18 at 18 :30 Donepezil HCl (Aricept) 5 mg QHS PO Last administered on 06/20/18at 20:36; Start 06/19/18 at 21:00; Stop 06/21/18 at 08:10; Status DC Sertraline HCl (Zoloft) 25 mg QHS PO Last administered on 06/19/18at 20:35; Start 06/19/18 at 21:00; Stop 06/20/18 at 11:33; Status DC Alprazolam (Xanax) 0.25 mg PRN Q8HRS PRN PO ANXIETY/AGITATION 2ND CHOICE Last administered on 06/22/18at 15:52; Start 06/19/18 at 18:30; Stop 06/25/18 at 20 :05; Status DC Alprazolam (Xanax) 0.25 mg 1X ONCE PO Last administered on 06/19/18 20:27; Start 06/19/18 at 18:30; Stop 06/19/18 at 18:34; Status DC Hydroxyzine HCl (Atarax) 10 mg PRN Q6HRS PRN PO ITCHING; Start 06/19/18 at 18: 30 Multivitamins (Thera M Plus) 1 tab DAILY PO Last administered on 06/26/18at 10: 02; Start 06/20/18 at 09:00 Heparin Sodium (Porcine) (Heparin Sodium) 4,160 unit 1X ONCE IV Last administered on 06/19/18at 20:27; Start 06/19/18 at 18:30; Stop 06/19/18 at 18 :34; Status DC Heparin Sodium/ Dextrose 500 ml @ 16.64 mls/ hr CONT PRN IV SEE I/O RECORD Last administered on 06/23/18at 20:32; Start 06/19/18 at 18:30; Stop 06/24/18 at 13:41; Status DC Heparin Sodium (Porcine) (Heparin Sodium) 1,560 unit PRN Q6HRS PRN IV FOR UFH LEVEL LESS THAN 0.2 Last administered on 06/21/18 22:24; Start 06/19/18 at 18 :30; Stop 06/24/18 at 13:42; Status DC Heparin Sodium (Porcine) (Heparin Sodium) 780 unit PRN Q6HRS PRN IV FOR UFH LEVEL 0.2 - 0.29 Last administered on 06/24/18 06:29; Start 06/19/18 at 18:30 ; Stop 06/24/18 at 13:41; Status DC Acetaminophen/ Hydrocodone Bitart (Lortab 5/325) 1 tab PRN Q4HRS PRN PO MODERATE-SEVERE PAIN Last administered on 06/24/18at 15:22; Start 06/19/18 at 18:30 Acetaminophen (Tylenol) 500 mg PRN Q6HRS PRN PO MILD PAIN / TEMP; Start at 18:30 Ondansetron HCl (Zofran) 4 mg PRN Q6HRS PRN IV NAUSEA/VOMITING Last administered on 06/25/18at 22:07; Start 06/19/18 at 18:30 Ondansetron HCl (Zofran Odt) 4 mg PRN Q6HRS PRN PO NAUSEA/VOMITING Last administered on 06/23/18at 10:56; Start 06/19/18 at 18:30 Heparin Sodium (Porcine) (Heparin Sodium) 4,150 unit 1X ONCE IV ; Start at 18:30; Stop 06/19/18 at 18:31; Status UNV Heparin Sodium/ Dextrose 500 ml @ 0 mls/hr CONT PRN IV SEE I/O RECORD; Start 06/19/18 at 18:30; Status UNV Heparin Sodium (Porcine) (Heparin Sodium) 1,550 unit PRN Q6HRS PRN IV FOR UFH LEVEL LESS THAN 0.2; Start 06/19/18 at 18:30; Status UNV Heparin Sodium (Porcine) (Heparin Sodium) 800 unit PRN Q6HRS PRN IV FOR UFH LEVEL 0.2 - 0.29; Start 06/19/18 at 18:30; Status UNV Lorazepam (Ativan) 0.5 mg PRN Q8HRS PRN PO ANXIETY/AGITATION 2nd CHOICE Last administered on 06/23/18at 14:19; Start 06/19/18 at 19:00 Sodium Chloride 1,000 ml @ 80 mls/hr [id number] IV Last administered on at 09:56; Start 06/19/18 at 20:45; Stop 06/22/18 at 13:05; Status DC Influenza Virus Vaccine (Afluria Trivalent [id number] Syringe) 0.5 ml ONCE ONCE VAX IM ; Start 06/20/18 at 09:00; Stop 06/20/18 at 09:01; Status DC Info (Anti-Coagulation Monitoring By Pharmacy) 1 each PRN DAILY PRN MC SEE COMMENTS Last administered on 06/26/18at 12:09; Start 06/20/18 at 09:00 Aspirin (Ecotrin) 81 mg [id number] PO Last administered on 06/26/18at 10:03; Start 06/20/18 at 12:00 Sertraline HCl (Zoloft) 150 mg HS PO Last administered on 06/25/18at 21:22; Start 06/20/18 at 21:00 Donepezil HCl (Aricept) 10 mg BID PO Last administered on 06/26/18at 10:03; Start 06/20/18 at 12:00 Hydroxyzine HCl (Atarax) 10 mg DAILY PO Last administered on 06/26/18at 10:02; Start 06/20/18 at 12:00 Hydroxyzine HCl (Atarax) 10 mg QHS PRN PO ANXIETY/AGITATION; Start 06/20/18 at 11:45; Stop 06/23/18 at 16:53; Status DC Non-Formulary Medication (Multivitamin/ Iron/Folic Acid (Centrum Complete Multivit Tab)) 1 each DAILY PO ; Start 06/21/18 at 09:00; Status UNV Non-Formulary Medication (Sertraline Hcl (Zoloft)) 100 mg HS PO ; Start at 21:00; Status UNV Atorvastatin Calcium (Lipitor) 20 mg QHS PO Last administered on 06/25/18at 21: 21; Start 06/20/18 at 21:00 Sodium Chloride 500 ml @ 500 mls/hr 1X ONCE IV Last administered on at 00:37; Start 06/21/18 at 01:00; Stop 06/21/18 at 01:59; Status DC Lidocaine/Sodium Bicarbonate (Buffered Lidocaine 1%) 3 ml STK-MED ONCE .ROUTE ; Start 06/21/18 at 09:32; Stop 06/21/18 at 09:33; Status DC Iohexol (Omnipaque 240 Mg/ml) 50 ml STK-MED ONCE .ROUTE ; Start 06/21/18 at 09: 32; Stop 06/21/18 at 09:33; Status DC Lidocaine/Sodium Bicarbonate (Buffered Lidocaine 1%) 3 ml 1X ONCE IJ Last administered on 06/21/18at 10:16; Start 06/21/18 at 10:15; Stop 06/21/18 at 10 :16; Status DC Iohexol (Omnipaque 240 Mg/ml) 50 ml 1X ONCE IV Last administered on at 10:17; Start 06/21/18 at 10:15; Stop 06/21/18 at 10:16; Status DC Miconazole Nitrate (Monistat-Derm) 1 cali BID TP Last administered on at 21:22; Start 06/21/18 at 14:00 Albuterol/ Ipratropium (Duoneb) 3 ml RTQID PRN NEB SHORTNESS OF BREATH Last administered on 06/22/18at 07:52; Start 06/21/18 at 17:30 Influenza Virus Vaccine (Afluria Trivalent [id number] Syringe) 0.5 ml ONCE ONCE VAX IM Last administered on 06/21/18at 21:23; Start 06/21/18 at 21:00; Stop 06/21/18 at 21:01; Status DC Amino Acids/ Glycerin/ Electrolytes 1,000 ml @ 80 mls/hr [id number] IV Last administered on 06/24/18at 04:29; Start 06/22/18 at 13:15; Stop 06/24/18 at 13 :34; Status DC Hydroxyzine HCl (Atarax) 10 mg PRN QHS PRN PO ANXIETY/AGITATION 1st Choice; Start 06/23/18 at 17:00 Morphine Sulfate (Morphine Sulfate) 1 mg PRN Q4HRS PRN IV MODERATE PAIN Last administered on 06/24/18at 16:38; Start 06/23/18 at 20:00 Lorazepam (Ativan) 1 mg PRN Q4HRS PRN IV ANXIETY / AGITATION Last administered on 06/25/18at 22:06; Start 06/23/18 at 20:00 Apixaban (Eliquis) 5 mg BID PO ; Start 06/24/18 at 13:45; Status Cancel Enoxaparin Sodium (Lovenox 60mg Syringe) 50 mg Q12HR SQ Last administered on at 10:05; Start 06/24/18 at 14:00 Amino Acids/ Glycerin/ Electrolytes 1,000 ml @ 75 mls/hr [id number] IV Last administered on 06/26/18at 10:02; Start 06/24/18 at 20:00 Active Scripts Active Antifungal Cream (Miconazole Nitrate) 14 Gm Cream..g. 1 Cali TP BID Reported Centrum Complete Multivit Tab (Multivitamin/Iron/Folic Acid) 1 Each Tablet 1 Each PO DAILY Hydroxyzine Hcl 10 Mg/5 Ml Syrup 10 Mg PO HS PRN Zoloft (Sertraline Hcl) 100 Mg Tablet 100 Mg PO HS Zoloft (Sertraline Hcl) 50 Mg Tablet 50 Mg PO HS Aricept (Donepezil Hcl) 23 Mg Tablet 23 Mg PO HS Hydroxyzine Hcl 10 Mg/5 Ml Syrup 10 Mg PO DAILY Vitals/I & O Vital Sign - Last 24 Hours 06/25/18 06/25/18 06/25/18 06/25/18 15:36 19:46 20:00 23:32 Temp 98.9 98.4 97.3 98.9 98.4 97.3 Pulse 69 62 67 Resp 16 16 18 B/P (MAP) 121/71 (88) 117/67 (84) 121/65 (83) Pulse Ox 98 96 97 O2 Delivery Nasal Cannula Nasal Cannula Nasal Cannula Nasal Cannula O2 Flow Rate 2.0 2.0 2.5 2.0 06/26/18 06/26/18 06/26/18 06/26/18 03:39 07:00 08:00 10:56 Temp 97.9 97.7 97.4 97.9 97.7 97.4 Pulse 58 65 71 Resp 20 18 18 B/P (MAP) 127/68 (87) 98/45 (62) 107/52 (70) Pulse Ox 98 96 97 O2 Delivery Nasal Cannula Nasal Cannula Nasal Cannula Nasal Cannula O2 Flow Rate 2.0 2.0 2.0 2.0 Intake and Output 06/25/18 06/25/18 06/26/18 15:00 23:00 07:00 Intake Total 0 ml 0 ml Output Total 1430 ml Balance 0 ml -1430 ml Nutrition Consultation Dietary Evaluation: Recommendations by RD: Increase Calorie Intake, Protein supplementation, PPN/ TPN Comments: REC advance diet to GI soft/regular w/textures per CERTIFIED PATHOLOGY ASSISTANT REC Ensure TID continue PPN until able to advance diet Expected Outcomes/Goals: PO intake to meet >75% est needs Malnutrition Findings: Body Fat Depletion (Non Severe: Mild Depletion Weight Status: Underweight SWATI JOYNER MD Jun 26, 2018 13:15
--- NOTE | 2018-06-26 17:22 | PDOC2 ---
PALLIATIVE CARE Palliative Care Note Palliative Care Consult requested by Dr Burgess to address goals of care. Medical Assessment per medical record 1. Acute pulmonary embolism. 2. Acute respiratory distress secondary to above. resolved 3. Recent near syncopal episode secondary to acute pulmonary embolism. 4. Echocardiogram revealing no significant right heart strain, mild elevation in pulmonary artery pressure, suspected pulmonary embolism was not acute, but subacute, the patient remained hemodynamically stable throughout her stay. 5. The patient at risk for fall with subsequent complications of utilizing anticoagulation. 6. Non-ST segment elevation myocardial infarction, elevated troponin level. possible RV Infarct 7.dysphagia/ choking on food IVC Filter in place. Code Status: Full code. Spoke with . Daughter not here. "She needs to be here to make decisions " Plan Family meeting tomorrow at 1030 ALICIA BURTON Jun 26, 2018 17:22
[2018-06-26] MEDS: SERTRALINE 50 MG TABLET. PO SCH (20:47)
[2018-06-26] MEDS: ATORVASTATIN CALCIUM 20 MG TABLET PO SCH (20:47)
[2018-06-26] MEDS: ONDANSETRON PF 4 MG/2 ML VIAL. IV PRN (22:02)
[2018-06-27 03:06] VITALS: BP 115/57
[2018-06-27 04:59] LABS: BASO # 0.1 x10^3/uL (0.0-0.2); BASO % 1 % (0-3); EOS # 0.3 x10^3/uL (0.0-0.7); EOS % 4 % (0-3); HEMOGLOBIN 10.8 g/dL (12.0-15.5); LYMPH # 0.8 x10^3/uL (1.0-4.8); LYMPH % 13 % (24-48); MEAN CORPUSCULAR HEMOGLOBIN 31 pg (25-35); MEAN CORPUSCULAR HGB CONC 35 g/dL (31-37); MEAN CORPUSCULAR VOLUME 88 fL (79-100); MONO # 0.5 x10^3/uL (0.0-1.1); MONO % 8 % (0-9); NEUT # 4.8 x10^3uL (1.8-7.7); NEUT % 74 % (31-73); PLATELET COUNT 221 x10^3/uL (140-400); RED BLOOD COUNT 3.52 x10^6/uL (3.50-5.40); RED CELL DISTRIBUTION WIDTH 13.4 % (11.5-14.5); WHITE BLOOD COUNT 6.4 x10^3/uL (4.0-11.0)
[2018-06-27 05:29] LABS: ALBUMIN 2.4 g/dL (3.4-5.0); ALBUMIN/GLOBULIN RATIO 0.6 (1.0-1.7); CALCIUM 9.1 mg/dL (8.5-10.1); CREATININE 0.6 mg/dL (0.6-1.0); GFR 97.7; POTASSIUM 3.8 mmol/L (3.5-5.1); TOTAL BILIRUBIN 0.3 mg/dL (0.2-1.0); TOTAL PROTEIN 6.3 g/dL (6.4-8.2)
[2018-06-27 07:00] VITALS: BP 107/53
[2018-06-27] MEDS: DONEPEZIL HCL 10 MG TABLET. PO SCH ×2 (10:01→20:35)
[2018-06-27] MEDS: MICONAZOLE NITRATE 2% TOPICAL CREAM 28GM TUBE. TP SCH ×2 (10:01→20:36)
[2018-06-27] MEDS: ASPIRIN ENTERIC COATED 81 MG TABLET.DR. PO SCH (10:01)
[2018-06-27] MEDS: MULTIVITAMIN with MINERAL TABLET. PO SCH (10:01)
[2018-06-27] MEDS: hydrOXYzine 10 MG TABLET PO SCH (10:01)
[2018-06-27] MEDS: AMINO AC 3%/ELECTROLYTE/GLYCER 1,000 ML IV SCH ×2 (10:04→23:17)
--- NOTE | 2018-06-27 10:11 | PDOC ---
Subjective: Subjective: Not feeling well, might be having a hard time breathing. Objective: Objective: Reviewed chart including palliative care note. Vital Signs: Vital Signs Date Time Temp Pulse Resp B/P (MAP) Pulse Ox O2 Delivery O2 Flow Rate FiO2 06/27/18 07:00 98.2 65 18 107/53 (71) 96 Room Air 98.2 06/26/18 23:54 2.0 Labs: Laboratory Tests Test 06/27/18 04:10 White Blood Count 6.4 x10^3/uL Red Blood Count 3.52 x10^6/uL Hemoglobin 10.8 g/dL Hematocrit 31.0 % Mean Corpuscular Volume 88 fL Mean Corpuscular Hemoglobin 31 pg Mean Corpuscular Hemoglobin Concent 35 g/dL Red Cell Distribution Width 13.4 % Platelet Count 221 x10^3/uL Neutrophils (%) (Auto) 74 % Lymphocytes (%) (Auto) 13 % Monocytes (%) (Auto) 8 % Eosinophils (%) (Auto) 4 % Basophils (%) (Auto) 1 % Neutrophils # (Auto) 4.8 x10^3uL Lymphocytes # (Auto) 0.8 x10^3/uL Monocytes # (Auto) 0.5 x10^3/uL Eosinophils # (Auto) 0.3 x10^3/uL Basophils # (Auto) 0.1 x10^3/uL Sodium Level 141 mmol/L Potassium Level 3.8 mmol/L Chloride Level 104 mmol/L Carbon Dioxide Level 27 mmol/L Anion Gap 10 Blood Urea Nitrogen 14 mg/dL Creatinine 0.6 mg/dL Estimated GFR (Cockcroft-Gault) 97.7 BUN/Creatinine Ratio 23 Glucose Level 101 mg/dL Calcium Level 9.1 mg/dL Total Bilirubin 0.3 mg/dL Aspartate Amino Transf (AST/SGOT) 37 U/L Alanine Aminotransferase (ALT/SGPT) 26 U/L Alkaline Phosphatase 74 U/L Total Protein 6.3 g/dL Albumin 2.4 g/dL Albumin/Globulin Ratio 0.6 PE: GEN: ill LUNGS: clear anteriorly HEART: RRR ABD: S/ND/NT NEURO/PSYCH: appropriate A/P: Dysphagia -- Await outcome of family meeting. Would be high risk for PEG placement. PEDRO AGARWAL Jun 27, 2018 10:11
--- NOTE | 2018-06-27 10:33 | PDOC ---
PROGRESS NOTES Chief Complaint Chief Complaint impression acute hypoxoic respiratory failure, large pulmonary embolism , Saddle PE S/p IVC filter placement 06/21/18 BIlateral leg DVT - new H/o Fall , no injuries Hypoxic respiratory failure secondary to above above Elevated Troponin in the background of saddle PE dementia, chronic encephalopathy DYysphagia - NPO VERY WEAK, palliative care MEETING TODAY, HAS HOPE for recovery, i suspect may refuse palliative care History of Present Illness History of Present Illness t/o out of ICU 06/21/18 BReathing , less tachypnea, less tachycardic Family very involved in care-very pleasant and realistic Did discuss feeding options, NG tube was not an option currently Failed swallow, ProcalAmine Gets tired easy which is affecting swallowing (saddle PE and all) Echo - PA pressures 24 - copy given to dtr Plan: 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 Vitals Vitals Vital Signs Date Time Temp Pulse Resp B/P (MAP) Pulse Ox O2 Delivery O2 Flow Rate FiO2 06/27/18 07:00 98.2 65 18 107/53 (71) 96 Room Air 98.2 06/26/18 23:54 2.0 Physical Exam General: Alert, Oriented X3, Cooperative, No acute distress, mild distress, Other (tachypneic LESS) Heart: Regular rate (SR without ectopies), Normal S1, Other (2/6 systolic murmur to LLS border, tachy ) Lungs: Clear Abdomen: Normal bowel sounds, Soft, No tenderness Extremities: No clubbing, No cyanosis, No edema Skin: No rashes, No breakdown, No significant lesion Labs LABS Laboratory Tests Test 06/27/18 04:10 White Blood Count 6.4 x10^3/uL (4.0-11.0) Red Blood Count 3.52 x10^6/uL (3.50-5.40) Hemoglobin 10.8 g/dL (12.0-15.5) Hematocrit 31.0 % (36.0-47.0) Mean Corpuscular Volume 88 fL (79-100) Mean Corpuscular Hemoglobin 31 pg (25-35) Mean Corpuscular Hemoglobin Concent 35 g/dL (31-37) Red Cell Distribution Width 13.4 % (11.5-14.5) Platelet Count 221 x10^3/uL (140-400) Neutrophils (%) (Auto) 74 % (31-73) Lymphocytes (%) (Auto) 13 % (24-48) Monocytes (%) (Auto) 8 % (0-9) Eosinophils (%) (Auto) 4 % (0-3) Basophils (%) (Auto) 1 % (0-3) Neutrophils # (Auto) 4.8 x10^3uL (1.8-7.7) Lymphocytes # (Auto) 0.8 x10^3/uL (1.0-4.8) Monocytes # (Auto) 0.5 x10^3/uL (0.0-1.1) Eosinophils # (Auto) 0.3 x10^3/uL (0.0-0.7) Basophils # (Auto) 0.1 x10^3/uL (0.0-0.2) Sodium Level 141 mmol/L (136-145) Potassium Level 3.8 mmol/L (3.5-5.1) Chloride Level 104 mmol/L (98-107) Carbon Dioxide Level 27 mmol/L (21-32) Anion Gap 10 (6-14) Blood Urea Nitrogen 14 mg/dL (7-20) Creatinine 0.6 mg/dL (0.6-1.0) Estimated GFR (Cockcroft-Gault) 97.7 BUN/Creatinine Ratio 23 (6-20) Glucose Level 101 mg/dL (70-99) Calcium Level 9.1 mg/dL (8.5-10.1) Total Bilirubin 0.3 mg/dL (0.2-1.0) Aspartate Amino Transf (AST/SGOT) 37 U/L (15-37) Alanine Aminotransferase (ALT/SGPT) 26 U/L (14-59) Alkaline Phosphatase 74 U/L (46-116) Total Protein 6.3 g/dL (6.4-8.2) Albumin 2.4 g/dL (3.4-5.0) Albumin/Globulin Ratio 0.6 (1.0-1.7) Comment Review of Relevant I have reviewed the following items gal (where applicable) has been applied. Labs Laboratory Tests Test 06/26/18 08:20 06/27/18 04:10 White Blood Count 7.9 x10^3/uL (4.0-11.0) 6.4 x10^3/uL (4.0-11.0) Red Blood Count 3.46 x10^6/uL (3.50-5.40) 3.52 x10^6/uL (3.50-5.40) Hemoglobin 10.8 g/dL (12.0-15.5) 10.8 g/dL (12.0-15.5) Hematocrit 30.9 % (36.0-47.0) 31.0 % (36.0-47.0) Mean Corpuscular Volume 89 fL (79-100) 88 fL (79-100) Mean Corpuscular Hemoglobin 31 pg (25-35) 31 pg (25-35) Mean Corpuscular Hemoglobin Concent 35 g/dL (31-37) 35 g/dL (31-37) Red Cell Distribution Width 13.2 % (11.5-14.5) 13.4 % (11.5-14.5) Platelet Count 210 x10^3/uL (140-400) 221 x10^3/uL (140-400) Neutrophils (%) (Auto) 84 % (31-73) 74 % (31-73) Lymphocytes (%) (Auto) 7 % (24-48) 13 % (24-48) Monocytes (%) (Auto) 7 % (0-9) 8 % (0-9) Eosinophils (%) (Auto) 3 % (0-3) 4 % (0-3) Basophils (%) (Auto) 0 % (0-3) 1 % (0-3) Neutrophils # (Auto) 6.6 x10^3uL (1.8-7.7) 4.8 x10^3uL (1.8-7.7) Lymphocytes # (Auto) 0.5 x10^3/uL (1.0-4.8) 0.8 x10^3/uL (1.0-4.8) Monocytes # (Auto) 0.5 x10^3/uL (0.0-1.1) 0.5 x10^3/uL (0.0-1.1) Eosinophils # (Auto) 0.2 x10^3/uL (0.0-0.7) 0.3 x10^3/uL (0.0-0.7) Basophils # (Auto) 0.0 x10^3/uL (0.0-0.2) 0.1 x10^3/uL (0.0-0.2) Sodium Level 140 mmol/L (136-145) 141 mmol/L (136-145) Potassium Level 4.0 mmol/L (3.5-5.1) 3.8 mmol/L (3.5-5.1) Chloride Level 104 mmol/L (98-107) 104 mmol/L (98-107) Carbon Dioxide Level 29 mmol/L (21-32) 27 mmol/L (21-32) Anion Gap 7 (6-14) 10 (6-14) Blood Urea Nitrogen 12 mg/dL (7-20) 14 mg/dL (7-20) Creatinine 0.6 mg/dL (0.6-1.0) 0.6 mg/dL (0.6-1.0) Estimated GFR (Cockcroft-Gault) 97.7 97.7 Glucose Level 102 mg/dL (70-99) 101 mg/dL (70-99) Calcium Level 9.0 mg/dL (8.5-10.1) 9.1 mg/dL (8.5-10.1) BUN/Creatinine Ratio 23 (6-20) Total Bilirubin 0.3 mg/dL (0.2-1.0) Aspartate Amino Transf (AST/SGOT) 37 U/L (15-37) Alanine Aminotransferase (ALT/SGPT) 26 U/L (14-59) Alkaline Phosphatase 74 U/L (46-116) Total Protein 6.3 g/dL (6.4-8.2) Albumin 2.4 g/dL (3.4-5.0) Albumin/Globulin Ratio 0.6 (1.0-1.7) Laboratory Tests Test 06/27/18 04:10 White Blood Count 6.4 x10^3/uL (4.0-11.0) Red Blood Count 3.52 x10^6/uL (3.50-5.40) Hemoglobin 10.8 g/dL (12.0-15.5) Hematocrit 31.0 % (36.0-47.0) Mean Corpuscular Volume 88 fL (79-100) Mean Corpuscular Hemoglobin 31 pg (25-35) Mean Corpuscular Hemoglobin Concent 35 g/dL (31-37) Red Cell Distribution Width 13.4 % (11.5-14.5) Platelet Count 221 x10^3/uL (140-400) Neutrophils (%) (Auto) 74 % (31-73) Lymphocytes (%) (Auto) 13 % (24-48) Monocytes (%) (Auto) 8 % (0-9) Eosinophils (%) (Auto) 4 % (0-3) Basophils (%) (Auto) 1 % (0-3) Neutrophils # (Auto) 4.8 x10^3uL (1.8-7.7) Lymphocytes # (Auto) 0.8 x10^3/uL (1.0-4.8) Monocytes # (Auto) 0.5 x10^3/uL (0.0-1.1) Eosinophils # (Auto) 0.3 x10^3/uL (0.0-0.7) Basophils # (Auto) 0.1 x10^3/uL (0.0-0.2) Sodium Level 141 mmol/L (136-145) Potassium Level 3.8 mmol/L (3.5-5.1) Chloride Level 104 mmol/L (98-107) Carbon Dioxide Level 27 mmol/L (21-32) Anion Gap 10 (6-14) Blood Urea Nitrogen 14 mg/dL (7-20) Creatinine 0.6 mg/dL (0.6-1.0) Estimated GFR (Cockcroft-Gault) 97.7 BUN/Creatinine Ratio 23 (6-20) Glucose Level 101 mg/dL (70-99) Calcium Level 9.1 mg/dL (8.5-10.1) Total Bilirubin 0.3 mg/dL (0.2-1.0) Aspartate Amino Transf (AST/SGOT) 37 U/L (15-37) Alanine Aminotransferase (ALT/SGPT) 26 U/L (14-59) Alkaline Phosphatase 74 U/L (46-116) Total Protein 6.3 g/dL (6.4-8.2) Albumin 2.4 g/dL (3.4-5.0) Albumin/Globulin Ratio 0.6 (1.0-1.7) Microbiology 06/20/18 Blood Culture - Final, Complete NO GROWTH AFTER 5 DAYS Medications Current Medications Ondansetron HCl (Zofran) 4 mg PRN Q6HRS PRN IV NAUSEA/VOMITING; Start at 18:15; Stop 06/19/18 at 19:01; Status DC Sodium Chloride (Normal Saline Flush) 3 ml QSHIFT PRN IV AFTER MEDS AND BLOOD DRAWS; Start 06/19/18 at 18:15 Albuterol/ Ipratropium (Duoneb) 3 ml RTQID NEB Last administered on 06/21/18at 16:38; Start 06/19/18 at 20:00; Stop 06/21/18 at 17:28; Status DC Guaifenesin (Robitussin Dm) 10 ml PRN Q6HRS PRN PO COUGH; Start 06/19/18 at 18 :30 Donepezil HCl (Aricept) 5 mg QHS PO Last administered on 06/20/18at 20:36; Start 06/19/18 at 21:00; Stop 06/21/18 at 08:10; Status DC Sertraline HCl (Zoloft) 25 mg QHS PO Last administered on 06/19/18at 20:35; Start 06/19/18 at 21:00; Stop 06/20/18 at 11:33; Status DC Alprazolam (Xanax) 0.25 mg PRN Q8HRS PRN PO ANXIETY/AGITATION 2ND CHOICE Last administered on 06/22/18at 15:52; Start 06/19/18 at 18:30; Stop 06/25/18 at 20 :05; Status DC Alprazolam (Xanax) 0.25 mg 1X ONCE PO Last administered on 06/19/18at 20:27; Start 06/19/18 at 18:30; Stop 06/19/18 at 18:34; Status DC Hydroxyzine HCl (Atarax) 10 mg PRN Q6HRS PRN PO ITCHING; Start 06/19/18 at 18: 30 Multivitamins (Thera M Plus) 1 tab DAILY PO Last administered on 06/27/18at 10: 01; Start 06/20/18 at 09:00 Heparin Sodium (Porcine) (Heparin Sodium) 4,160 unit 1X ONCE IV Last administered on 06/19/18at 20:27; Start 06/19/18 at 18:30; Stop 06/19/18 at 18 :34; Status DC Heparin Sodium/ Dextrose 500 ml @ 16.64 mls/ hr CONT PRN IV SEE I/O RECORD Last administered on 06/23/18at 20:32; Start 06/19/18 at 18:30; Stop 06/24/18 at 13:41; Status DC Heparin Sodium (Porcine) (Heparin Sodium) 1,560 unit PRN Q6HRS PRN IV FOR UFH LEVEL LESS THAN 0.2 Last administered on 06/21/18at 22:24; Start 06/19/18 at 18 :30; Stop 06/24/18 at 13:42; Status DC Heparin Sodium (Porcine) (Heparin Sodium) 780 unit PRN Q6HRS PRN IV FOR UFH LEVEL 0.2 - 0.29 Last administered on 06/24/18at 06:29; Start 06/19/18 at 18:30 ; Stop 06/24/18 at 13:41; Status DC Acetaminophen/ Hydrocodone Bitart (Lortab 5/325) 1 tab PRN Q4HRS PRN PO MODERATE-SEVERE PAIN Last administered on 06/24/18at 15:22; Start 06/19/18 at 18:30 Acetaminophen (Tylenol) 500 mg PRN Q6HRS PRN PO MILD PAIN / TEMP; Start at 18:30 Ondansetron HCl (Zofran) 4 mg PRN Q6HRS PRN IV NAUSEA/VOMITING Last administered on 06/26/18at 22:02; Start 06/19/18 at 18:30 Ondansetron HCl (Zofran Odt) 4 mg PRN Q6HRS PRN PO NAUSEA/VOMITING Last administered on 06/23/18at 10:56; Start 06/19/18 at 18:30 Heparin Sodium (Porcine) (Heparin Sodium) 4,150 unit 1X ONCE IV ; Start at 18:30; Stop 06/19/18 at 18:31; Status UNV Heparin Sodium/ Dextrose 500 ml @ 0 mls/hr CONT PRN IV SEE I/O RECORD; Start 06/19/18 at 18:30; Status UNV Heparin Sodium (Porcine) (Heparin Sodium) 1,550 unit PRN Q6HRS PRN IV FOR UFH LEVEL LESS THAN 0.2; Start 06/19/18 at 18:30; Status UNV Heparin Sodium (Porcine) (Heparin Sodium) 800 unit PRN Q6HRS PRN IV FOR UFH LEVEL 0.2 - 0.29; Start 06/19/18 at 18:30; Status UNV Lorazepam (Ativan) 0.5 mg PRN Q8HRS PRN PO ANXIETY/AGITATION 2nd CHOICE Last administered on 06/23/18at 14:19; Start 06/19/18 at 19:00 Sodium Chloride 1,000 ml @ 80 mls/hr [id number] IV Last administered on at 09:56; Start 06/19/18 at 20:45; Stop 06/22/18 at 13:05; Status DC Influenza Virus Vaccine (Afluria Trivalent [id number] Syringe) 0.5 ml ONCE ONCE VAX IM ; Start 06/20/18 at 09:00; Stop 06/20/18 at 09:01; Status DC Info (Anti-Coagulation Monitoring By Pharmacy) 1 each PRN DAILY PRN MC SEE COMMENTS Last administered on 06/26/18at 12:09; Start 06/20/18 at 09:00 Aspirin (Ecotrin) 81 mg [id number] PO Last administered on 06/27/18at 10:01; Start 06/20/18 at 12:00 Sertraline HCl (Zoloft) 150 mg HS PO Last administered on 06/26/18at 20:47; Start 06/20/18 at 21:00 Donepezil HCl (Aricept) 10 mg BID PO Last administered on 06/27/18at 10:01; Start 06/20/18 at 12:00 Hydroxyzine HCl (Atarax) 10 mg DAILY PO Last administered on 06/27/18at 10:01; Start 06/20/18 at 12:00 Hydroxyzine HCl (Atarax) 10 mg QHS PRN PO ANXIETY/AGITATION; Start 06/20/18 at 11:45; Stop 06/23/18 at 16:53; Status DC Non-Formulary Medication (Multivitamin/ Iron/Folic Acid (Centrum Complete Multivit Tab)) 1 each DAILY PO ; Start 06/21/18 at 09:00; Status UNV Non-Formulary Medication (Sertraline Hcl (Zoloft)) 100 mg HS PO ; Start at 21:00; Status UNV Atorvastatin Calcium (Lipitor) 20 mg QHS PO Last administered on 06/26/18at 20: 47; Start 06/20/18 at 21:00 Sodium Chloride 500 ml @ 500 mls/hr 1X ONCE IV Last administered on at 00:37; Start 06/21/18 at 01:00; Stop 06/21/18 at 01:59; Status DC Lidocaine/Sodium Bicarbonate (Buffered Lidocaine 1%) 3 ml STK-MED ONCE .ROUTE ; Start 06/21/18 at 09:32; Stop 06/21/18 at 09:33; Status DC Iohexol (Omnipaque 240 Mg/ml) 50 ml STK-MED ONCE .ROUTE ; Start 06/21/18 at 09: 32; Stop 06/21/18 at 09:33; Status DC Lidocaine/Sodium Bicarbonate (Buffered Lidocaine 1%) 3 ml 1X ONCE IJ Last administered on 06/21/18at 10:16; Start 06/21/18 at 10:15; Stop 06/21/18 at 10 :16; Status DC Iohexol (Omnipaque 240 Mg/ml) 50 ml 1X ONCE IV Last administered on at 10:17; Start 06/21/18 at 10:15; Stop 06/21/18 at 10:16; Status DC Miconazole Nitrate (Monistat-Derm) 1 cali BID TP Last administered on 06/27/18at 10:01; Start 06/21/18 at 14:00 Albuterol/ Ipratropium (Duoneb) 3 ml RTQID PRN NEB SHORTNESS OF BREATH Last administered on 06/22/18at 07:52; Start 06/21/18 at 17:30 Influenza Virus Vaccine (Afluria Trivalent [id number] Syringe) 0.5 ml ONCE ONCE VAX IM Last administered on 06/21/18at 21:23; Start 06/21/18 at 21:00; Stop 06/21/18 at 21:01; Status DC Amino Acids/ Glycerin/ Electrolytes 1,000 ml @ 80 mls/hr [id number] IV Last administered on 06/24/18at 04:29; Start 06/22/18 at 13:15; Stop 06/24/18 at 13 :34; Status DC Hydroxyzine HCl (Atarax) 10 mg PRN QHS PRN PO ANXIETY/AGITATION 1st Choice; Start 06/23/18 at 17:00 Morphine Sulfate (Morphine Sulfate) 1 mg PRN Q4HRS PRN IV MODERATE PAIN Last administered on 06/24/18at 16:38; Start 06/23/18 at 20:00 Lorazepam (Ativan) 1 mg PRN Q4HRS PRN IV ANXIETY / AGITATION Last administered on 06/25/18at 22:06; Start 06/23/18 at 20:00 Apixaban (Eliquis) 5 mg BID PO ; Start 06/24/18 at 13:45; Status Cancel Enoxaparin Sodium (Lovenox 60mg Syringe) 50 mg Q12HR SQ Last administered on at 10:01; Start 06/24/18 at 14:00 Amino Acids/ Glycerin/ Electrolytes 1,000 ml @ 75 mls/hr [id number] IV Last administered on 06/27/18at 10:04; Start 06/24/18 at 20:00 Active Scripts Active Antifungal Cream (Miconazole Nitrate) 14 Gm Cream..g. 1 Cali TP BID Reported Centrum Complete Multivit Tab (Multivitamin/Iron/Folic Acid) 1 Each Tablet 1 Each PO DAILY Hydroxyzine Hcl 10 Mg/5 Ml Syrup 10 Mg PO HS PRN Zoloft (Sertraline Hcl) 100 Mg Tablet 100 Mg PO HS Zoloft (Sertraline Hcl) 50 Mg Tablet 50 Mg PO HS Aricept (Donepezil Hcl) 23 Mg Tablet 23 Mg PO HS Hydroxyzine Hcl 10 Mg/5 Ml Syrup 10 Mg PO DAILY Vitals/I & O Vital Sign - Last 24 Hours 06/26/18 06/26/18 06/26/18 06/26/18 10:56 15:04 19:00 19:35 Temp 97.4 97.6 98.2 97.4 97.6 98.2 Pulse 71 67 62 Resp 18 16 16 B/P (MAP) 107/52 (70) 109/66 (80) 109/54 (72) Pulse Ox 97 97 96 O2 Delivery Nasal Cannula Nasal Cannula Room Air Room Air O2 Flow Rate 2.0 1.5 06/26/18 06/26/18 06/27/18 06/27/18 20:38 23:54 03:06 07:00 Temp 98.2 97.7 98.1 98.2 98.2 97.7 98.1 98.2 Pulse 62 70 62 65 Resp 16 18 16 18 B/P (MAP) 109/54 (72) 109/63 (78) 115/57 (76) 107/53 (71) Pulse Ox 96 98 96 96 O2 Delivery Room Air Nasal Cannula Room Air Room Air O2 Flow Rate 2.0 Intake and Output 06/26/18 06/26/18 06/27/18 15:00 23:00 07:00 Intake Total 0 ml 0 ml Output Total 1200 ml Balance -1200 ml 0 ml Nutrition Consultation Dietary Evaluation: Recommendations by RD: PPN/TPN Comments: continue PPN until plan of care decided Expected Outcomes/Goals: Await outcome of family meeting Malnutrition Findings: Body Fat Depletion (Non Severe: Mild Depletion Weight Status: Underweight SWATI JOYNER MD Jun 27, 2018 10:33
[2018-06-27 11:10] VITALS: BP 112/57
[2018-06-27] MEDS: ANTI-COAG MONITOR BY PHARMACY. MC PRN (13:59)
--- NOTE | 2018-06-27 14:48 | PDOC ---
PULMONARY PROGRESS NOTES Subjective PT VERY WEAK/ DOES NOT FEEL WELL Vitals Vital Signs Date Time Temp Pulse Resp B/P (MAP) Pulse Ox O2 Delivery O2 Flow Rate FiO2 06/27/18 11:10 97.4 59 16 112/57 (75) 97 Room Air 97.4 06/27/18 08:00 2.0 ROS: No Nausea, No Chest Pain, No Abdominal Pain, No Increase Cough General: Lethargic Lungs: Clear Cardiovascular: S1, S2 Abdomen: Soft Neuro Exam: Alert Extremities: No Edema Skin: Warm Labs Laboratory Tests Test 06/26/18 08:20 06/27/18 04:10 White Blood Count 7.9 x10^3/uL (4.0-11.0) 6.4 x10^3/uL (4.0-11.0) Red Blood Count 3.46 x10^6/uL (3.50-5.40) 3.52 x10^6/uL (3.50-5.40) Hemoglobin 10.8 g/dL (12.0-15.5) 10.8 g/dL (12.0-15.5) Hematocrit 30.9 % (36.0-47.0) 31.0 % (36.0-47.0) Mean Corpuscular Volume 89 fL (79-100) 88 fL (79-100) Mean Corpuscular Hemoglobin 31 pg (25-35) 31 pg (25-35) Mean Corpuscular Hemoglobin Concent 35 g/dL (31-37) 35 g/dL (31-37) Red Cell Distribution Width 13.2 % (11.5-14.5) 13.4 % (11.5-14.5) Platelet Count 210 x10^3/uL (140-400) 221 x10^3/uL (140-400) Neutrophils (%) (Auto) 84 % (31-73) 74 % (31-73) Lymphocytes (%) (Auto) 7 % (24-48) 13 % (24-48) Monocytes (%) (Auto) 7 % (0-9) 8 % (0-9) Eosinophils (%) (Auto) 3 % (0-3) 4 % (0-3) Basophils (%) (Auto) 0 % (0-3) 1 % (0-3) Neutrophils # (Auto) 6.6 x10^3uL (1.8-7.7) 4.8 x10^3uL (1.8-7.7) Lymphocytes # (Auto) 0.5 x10^3/uL (1.0-4.8) 0.8 x10^3/uL (1.0-4.8) Monocytes # (Auto) 0.5 x10^3/uL (0.0-1.1) 0.5 x10^3/uL (0.0-1.1) Eosinophils # (Auto) 0.2 x10^3/uL (0.0-0.7) 0.3 x10^3/uL (0.0-0.7) Basophils # (Auto) 0.0 x10^3/uL (0.0-0.2) 0.1 x10^3/uL (0.0-0.2) Sodium Level 140 mmol/L (136-145) 141 mmol/L (136-145) Potassium Level 4.0 mmol/L (3.5-5.1) 3.8 mmol/L (3.5-5.1) Chloride Level 104 mmol/L (98-107) 104 mmol/L (98-107) Carbon Dioxide Level 29 mmol/L (21-32) 27 mmol/L (21-32) Anion Gap 7 (6-14) 10 (6-14) Blood Urea Nitrogen 12 mg/dL (7-20) 14 mg/dL (7-20) Creatinine 0.6 mg/dL (0.6-1.0) 0.6 mg/dL (0.6-1.0) Estimated GFR (Cockcroft-Gault) 97.7 97.7 Glucose Level 102 mg/dL (70-99) 101 mg/dL (70-99) Calcium Level 9.0 mg/dL (8.5-10.1) 9.1 mg/dL (8.5-10.1) BUN/Creatinine Ratio 23 (6-20) Total Bilirubin 0.3 mg/dL (0.2-1.0) Aspartate Amino Transf (AST/SGOT) 37 U/L (15-37) Alanine Aminotransferase (ALT/SGPT) 26 U/L (14-59) Alkaline Phosphatase 74 U/L (46-116) Total Protein 6.3 g/dL (6.4-8.2) Albumin 2.4 g/dL (3.4-5.0) Albumin/Globulin Ratio 0.6 (1.0-1.7) Laboratory Tests Test 06/27/18 04:10 White Blood Count 6.4 x10^3/uL (4.0-11.0) Red Blood Count 3.52 x10^6/uL (3.50-5.40) Hemoglobin 10.8 g/dL (12.0-15.5) Hematocrit 31.0 % (36.0-47.0) Mean Corpuscular Volume 88 fL (79-100) Mean Corpuscular Hemoglobin 31 pg (25-35) Mean Corpuscular Hemoglobin Concent 35 g/dL (31-37) Red Cell Distribution Width 13.4 % (11.5-14.5) Platelet Count 221 x10^3/uL (140-400) Neutrophils (%) (Auto) 74 % (31-73) Lymphocytes (%) (Auto) 13 % (24-48) Monocytes (%) (Auto) 8 % (0-9) Eosinophils (%) (Auto) 4 % (0-3) Basophils (%) (Auto) 1 % (0-3) Neutrophils # (Auto) 4.8 x10^3uL (1.8-7.7) Lymphocytes # (Auto) 0.8 x10^3/uL (1.0-4.8) Monocytes # (Auto) 0.5 x10^3/uL (0.0-1.1) Eosinophils # (Auto) 0.3 x10^3/uL (0.0-0.7) Basophils # (Auto) 0.1 x10^3/uL (0.0-0.2) Sodium Level 141 mmol/L (136-145) Potassium Level 3.8 mmol/L (3.5-5.1) Chloride Level 104 mmol/L (98-107) Carbon Dioxide Level 27 mmol/L (21-32) Anion Gap 10 (6-14) Blood Urea Nitrogen 14 mg/dL (7-20) Creatinine 0.6 mg/dL (0.6-1.0) Estimated GFR (Cockcroft-Gault) 97.7 BUN/Creatinine Ratio 23 (6-20) Glucose Level 101 mg/dL (70-99) Calcium Level 9.1 mg/dL (8.5-10.1) Total Bilirubin 0.3 mg/dL (0.2-1.0) Aspartate Amino Transf (AST/SGOT) 37 U/L (15-37) Alanine Aminotransferase (ALT/SGPT) 26 U/L (14-59) Alkaline Phosphatase 74 U/L (46-116) Total Protein 6.3 g/dL (6.4-8.2) Albumin 2.4 g/dL (3.4-5.0) Albumin/Globulin Ratio 0.6 (1.0-1.7) Medications Active Scripts Medications Dose Route/Sig Max Daily Dose Days Date Category Centrum Complete Multivit Tab (Multivitamin/Iron/Folic Acid) 1 Each Tablet 1 Each PO DAILY 06/20/18 Reported Hydroxyzine Hcl 10 Mg/5 Ml Syrup 10 Mg PO HS PRN 06/20/18 Reported Zoloft (Sertraline Hcl) 100 Mg Tablet 100 Mg PO HS 06/20/18 Reported Zoloft (Sertraline Hcl) 50 Mg Tablet 50 Mg PO HS 06/20/18 Reported Aricept (Donepezil Hcl) 23 Mg Tablet 23 Mg PO HS 06/20/18 Reported Hydroxyzine Hcl 10 Mg/5 Ml Syrup 10 Mg PO DAILY 06/19/18 Reported Impression . IMPRESSION: 1. Acute pulmonary embolism. 2. Acute respiratory distress secondary to above. resolved 3. Recent near syncopal episode secondary to acute pulmonary embolism. 4. Echocardiogram revealing no significant right heart strain, mild elevation in pulmonary artery pressure, suspected pulmonary embolism was not acute, but subacute, the patient remained hemodynamically stable throughout her stay. 5. The patient at risk for fall with subsequent complications of utilizing anticoagulation. 6. Non-ST segment elevation myocardial infarction, elevated troponin level. possible RV Infarct 7.dysphagia/ choking on food 06/21 Impression: 1. Infrarenal permanent IVC filter placement as described Plan . LOVENOX till discharge PPN Speech following RISK OF FALL IS HIGH/ NO CATALOGING ASSISTANT AC Very poor functional status d/w palliative care meeting done today. await plans LILLIE HOUGH MD Jun 27, 2018 14:48
[2018-06-27 15:05] VITALS: BP 120/76
--- NOTE | 2018-06-27 15:30 | PDOC2 ---
PALLIATIVE CARE Palliative Care Note Palliative Care Patient alert. Confused. Difficulty following attempts at verbalization. Spoke with patient's Corey and daughter Morena. Reviewed medical condition: Respiratory failure; large pulmonary embolism (IVC Filter) ; DVT bilaterally; dementia, dysphagia, weakness with poor functional status Family described patient as able to walk in house assisted by family and holding on to furniture prior to admission, occ. cough --slow eating, Dementia became more obvious in 2014 when she did not "recognize her home." to 50 years. [place]; spiritual. Discussed goals of care; stated "I'm not a quiter" Discussed Code Status: Continue full code per family request Family hopes she will continue to improve. Discussed with daughter alone--she is more realistic than her father about the medical condition. She would not want her mother resuscitated but does not feel she can make that decision indepentent of her father. She will have more discussion with her father about DNR/DNI. Discussed feeding issues. No decision. Family is hoping she will improve enough to eat on her own, (daughter is not sure she would leave a feeding tube in place) Patient currently on anticoagulant and not an option now Discussed with daughter--advanced directive. Not sure if document exists but will check at home. This concerning to Morena. Afraid that her and her father 's relationship will suffer because of their difference in what they believe is best for patient. Discussed options for discharge. [place] vs [facility]. Discussed need for hospice if patient continues to decline. Plan; Continue current treatment plan ALICIA BURTON Jun 27, 2018 15:30
[2018-06-27 19:44] VITALS: BP 121/68
[2018-06-27] MEDS: ATORVASTATIN CALCIUM 20 MG TABLET PO SCH (20:35)
[2018-06-27] MEDS: SERTRALINE 50 MG TABLET. PO SCH (20:36)
[2018-06-27] MEDS: LORazepam 0.5 MG TABLET PO PRN (21:01)
[2018-06-27 23:47] VITALS: BP 119/71
[2018-06-28 03:03] VITALS: BP 115/69
[2018-06-28 07:00] VITALS: BP 116/56
[2018-06-28] MEDS: hydrOXYzine 10 MG TABLET PO SCH (09:17)
[2018-06-28] MEDS: DONEPEZIL HCL 10 MG TABLET. PO SCH ×2 (09:17→21:28)
[2018-06-28] MEDS: ASPIRIN ENTERIC COATED 81 MG TABLET.DR. PO SCH (09:18)
[2018-06-28] MEDS: MICONAZOLE NITRATE 2% TOPICAL CREAM 28GM TUBE. TP SCH ×2 (09:18→21:30)
[2018-06-28] MEDS: MULTIVITAMIN with MINERAL TABLET. PO SCH (09:18)
--- NOTE | 2018-06-28 10:23 | PDOC ---
Subjective: Subjective: and pt asleep when I came by. Objective: Objective: Reviewed chart including palliative care note - "Discussed feeding issues. No decision. Family is hoping she will improve enough to eat on her own, ( daughter is not sure she would leave a feeding tube in place)" Vital Signs: Vital Signs Date Time Temp Pulse Resp B/P (MAP) Pulse Ox O2 Delivery O2 Flow Rate FiO2 06/28/18 07:00 98.9 68 16 116/56 (76) 96 Nasal Cannula 2.0 98.9 PE: GEN: NAD NEURO/PSYCH: sleeping, not awakened A/P: Dysphagia -- Palliative care discussion noted - family undecided re: feeding tube. PEDRO AGARWAL Jun 28, 2018 10:23
--- NOTE | 2018-06-28 10:49 | PDOC ---
PROGRESS NOTES Chief Complaint Chief Complaint impression acute hypoxoic respiratory failure, large pulmonary embolism , Saddle PE S/p IVC filter placement 06/21/18 BIlateral leg DVT - new H/o Fall , no injuries Hypoxic respiratory failure secondary to above above Elevated Troponin in the background of saddle PE dementia, chronic encephalopathy DYysphagia - NPO VERY WEAK, palliative care FOCUS BY FAMILY AVOID ANTICOAGULANTS History of Present Illness History of Present Illness t/o out of ICU 06/21/18 BReathing , less tachypnea, less tachycardic Family very involved in care-very pleasant and realistic Did discuss feeding options, NG tube was not an option currently Failed swallow, ProcalAmine Gets tired easy which is affecting swallowing (saddle PE and all) Echo - PA pressures 24 - copy given to dtr Plan: 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 Vitals Vitals Vital Signs Date Time Temp Pulse Resp B/P (MAP) Pulse Ox O2 Delivery O2 Flow Rate FiO2 06/28/18 07:00 98.9 68 16 116/56 (76) 96 Nasal Cannula 2.0 98.9 Physical Exam General: Alert, Oriented X3, Cooperative, No acute distress, mild distress, Other (tachypneic LESS) Heart: Regular rate (SR without ectopies), Normal S1, Other (2/6 systolic murmur to LLS border, tachy ) Lungs: Clear Abdomen: Normal bowel sounds, Soft, No tenderness, No masses Extremities: No clubbing, No cyanosis, No edema, No tenderness/swelling Skin: No rashes, No breakdown, No significant lesion Comment Review of Relevant I have reviewed the following items gal (where applicable) has been applied. Labs Laboratory Tests Test 06/27/18 04:10 White Blood Count 6.4 x10^3/uL (4.0-11.0) Red Blood Count 3.52 x10^6/uL (3.50-5.40) Hemoglobin 10.8 g/dL (12.0-15.5) Hematocrit 31.0 % (36.0-47.0) Mean Corpuscular Volume 88 fL (79-100) Mean Corpuscular Hemoglobin 31 pg (25-35) Mean Corpuscular Hemoglobin Concent 35 g/dL (31-37) Red Cell Distribution Width 13.4 % (11.5-14.5) Platelet Count 221 x10^3/uL (140-400) Neutrophils (%) (Auto) 74 % (31-73) Lymphocytes (%) (Auto) 13 % (24-48) Monocytes (%) (Auto) 8 % (0-9) Eosinophils (%) (Auto) 4 % (0-3) Basophils (%) (Auto) 1 % (0-3) Neutrophils # (Auto) 4.8 x10^3uL (1.8-7.7) Lymphocytes # (Auto) 0.8 x10^3/uL (1.0-4.8) Monocytes # (Auto) 0.5 x10^3/uL (0.0-1.1) Eosinophils # (Auto) 0.3 x10^3/uL (0.0-0.7) Basophils # (Auto) 0.1 x10^3/uL (0.0-0.2) Sodium Level 141 mmol/L (136-145) Potassium Level 3.8 mmol/L (3.5-5.1) Chloride Level 104 mmol/L (98-107) Carbon Dioxide Level 27 mmol/L (21-32) Anion Gap 10 (6-14) Blood Urea Nitrogen 14 mg/dL (7-20) Creatinine 0.6 mg/dL (0.6-1.0) Estimated GFR (Cockcroft-Gault) 97.7 BUN/Creatinine Ratio 23 (6-20) Glucose Level 101 mg/dL (70-99) Calcium Level 9.1 mg/dL (8.5-10.1) Total Bilirubin 0.3 mg/dL (0.2-1.0) Aspartate Amino Transf (AST/SGOT) 37 U/L (15-37) Alanine Aminotransferase (ALT/SGPT) 26 U/L (14-59) Alkaline Phosphatase 74 U/L (46-116) Total Protein 6.3 g/dL (6.4-8.2) Albumin 2.4 g/dL (3.4-5.0) Albumin/Globulin Ratio 0.6 (1.0-1.7) Microbiology 06/20/18 Blood Culture - Final, Complete NO GROWTH AFTER 5 DAYS Medications Current Medications Ondansetron HCl (Zofran) 4 mg PRN Q6HRS PRN IV NAUSEA/VOMITING; Start at 18:15; Stop 06/19/18 at 19:01; Status DC Sodium Chloride (Normal Saline Flush) 3 ml QSHIFT PRN IV AFTER MEDS AND BLOOD DRAWS; Start 06/19/18 at 18:15 Albuterol/ Ipratropium (Duoneb) 3 ml RTQID NEB Last administered on 06/21/18at 16:38; Start 06/19/18 at 20:00; Stop 06/21/18 at 17:28; Status DC Guaifenesin (Robitussin Dm) 10 ml PRN Q6HRS PRN PO COUGH; Start 06/19/18 at 18 :30 Donepezil HCl (Aricept) 5 mg QHS PO Last administered on 06/20/18at 20:36; Start 06/19/18 at 21:00; Stop 06/21/18 at 08:10; Status DC Sertraline HCl (Zoloft) 25 mg QHS PO Last administered on 06/19/18at 20:35; Start 06/19/18 at 21:00; Stop 06/20/18 at 11:33; Status DC Alprazolam (Xanax) 0.25 mg PRN Q8HRS PRN PO ANXIETY/AGITATION 2ND CHOICE Last administered on 06/22/18at 15:52; Start 06/19/18 at 18:30; Stop 06/25/18 at 20 :05; Status DC Alprazolam (Xanax) 0.25 mg 1X ONCE PO Last administered on 06/19/18at 20:27; Start 06/19/18 at 18:30; Stop 06/19/18 at 18:34; Status DC Hydroxyzine HCl (Atarax) 10 mg PRN Q6HRS PRN PO ITCHING; Start 06/19/18 at 18: 30 Multivitamins (Thera M Plus) 1 tab DAILY PO Last administered on 06/28/18at 09: 18; Start 06/20/18 at 09:00 Heparin Sodium (Porcine) (Heparin Sodium) 4,160 unit 1X ONCE IV Last administered on 06/19/18at 20:27; Start 06/19/18 at 18:30; Stop 06/19/18 at 18 :34; Status DC Heparin Sodium/ Dextrose 500 ml @ 16.64 mls/ hr CONT PRN IV SEE I/O RECORD Last administered on 06/23/18at 20:32; Start 06/19/18 at 18:30; Stop 06/24/18 at 13:41; Status DC Heparin Sodium (Porcine) (Heparin Sodium) 1,560 unit PRN Q6HRS PRN IV FOR UFH LEVEL LESS THAN 0.2 Last administered on 06/21/18at 22:24; Start 06/19/18 at 18 :30; Stop 06/24/18 at 13:42; Status DC Heparin Sodium (Porcine) (Heparin Sodium) 780 unit PRN Q6HRS PRN IV FOR UFH LEVEL 0.2 - 0.29 Last administered on 06/24/18at 06:29; Start 06/19/18 at 18:30 ; Stop 06/24/18 at 13:41; Status DC Acetaminophen/ Hydrocodone Bitart (Lortab 5/325) 1 tab PRN Q4HRS PRN PO MODERATE-SEVERE PAIN Last administered on 06/24/18at 15:22; Start 06/19/18 at 18:30 Acetaminophen (Tylenol) 500 mg PRN Q6HRS PRN PO MILD PAIN / TEMP; Start at 18:30 Ondansetron HCl (Zofran) 4 mg PRN Q6HRS PRN IV NAUSEA/VOMITING Last administered on 06/26/18at 22:02; Start 06/19/18 at 18:30 Ondansetron HCl (Zofran Odt) 4 mg PRN Q6HRS PRN PO NAUSEA/VOMITING Last administered on 06/23/18at 10:56; Start 06/19/18 at 18:30 Heparin Sodium (Porcine) (Heparin Sodium) 4,150 unit 1X ONCE IV ; Start at 18:30; Stop 06/19/18 at 18:31; Status UNV Heparin Sodium/ Dextrose 500 ml @ 0 mls/hr CONT PRN IV SEE I/O RECORD; Start 06/19/18 at 18:30; Status UNV Heparin Sodium (Porcine) (Heparin Sodium) 1,550 unit PRN Q6HRS PRN IV FOR UFH LEVEL LESS THAN 0.2; Start 06/19/18 at 18:30; Status UNV Heparin Sodium (Porcine) (Heparin Sodium) 800 unit PRN Q6HRS PRN IV FOR UFH LEVEL 0.2 - 0.29; Start 06/19/18 at 18:30; Status UNV Lorazepam (Ativan) 0.5 mg PRN Q8HRS PRN PO ANXIETY/AGITATION 2nd CHOICE Last administered on 06/27/18at 21:01; Start 06/19/18 at 19:00 Sodium Chloride 1,000 ml @ 80 mls/hr [id number] IV Last administered on at 09:56; Start 06/19/18 at 20:45; Stop 06/22/18 at 13:05; Status DC Influenza Virus Vaccine (Afluria Trivalent [id number] Syringe) 0.5 ml ONCE ONCE VAX IM ; Start 06/20/18 at 09:00; Stop 06/20/18 at 09:01; Status DC Info (Anti-Coagulation Monitoring By Pharmacy) 1 each PRN DAILY PRN MC SEE COMMENTS Last administered on 06/27/18at 13:59; Start 06/20/18 at 09:00 Aspirin (Ecotrin) 81 mg [id number] PO Last administered on 06/28/18at 09:18; Start 06/20/18 at 12:00 Sertraline HCl (Zoloft) 150 mg HS PO Last administered on 06/27/18at 20:36; Start 06/20/18 at 21:00 Donepezil HCl (Aricept) 10 mg BID PO Last administered on 06/28/18at 09:17; Start 06/20/18 at 12:00 Hydroxyzine HCl (Atarax) 10 mg DAILY PO Last administered on 06/28/18at 09:17; Start 06/20/18 at 12:00 Hydroxyzine HCl (Atarax) 10 mg QHS PRN PO ANXIETY/AGITATION; Start 06/20/18 at 11:45; Stop 06/23/18 at 16:53; Status DC Non-Formulary Medication (Multivitamin/ Iron/Folic Acid (Centrum Complete Multivit Tab)) 1 each DAILY PO ; Start 06/21/18 at 09:00; Status UNV Non-Formulary Medication (Sertraline Hcl (Zoloft)) 100 mg HS PO ; Start at 21:00; Status UNV Atorvastatin Calcium (Lipitor) 20 mg QHS PO Last administered on 06/27/18at 20: 35; Start 06/20/18 at 21:00 Sodium Chloride 500 ml @ 500 mls/hr 1X ONCE IV Last administered on at 00:37; Start 06/21/18 at 01:00; Stop 06/21/18 at 01:59; Status DC Lidocaine/Sodium Bicarbonate (Buffered Lidocaine 1%) 3 ml STK-MED ONCE .ROUTE ; Start 06/21/18 at 09:32; Stop 06/21/18 at 09:33; Status DC Iohexol (Omnipaque 240 Mg/ml) 50 ml STK-MED ONCE .ROUTE ; Start 06/21/18 at 09: 32; Stop 06/21/18 at 09:33; Status DC Lidocaine/Sodium Bicarbonate (Buffered Lidocaine 1%) 3 ml 1X ONCE IJ Last administered on 06/21/18at 10:16; Start 06/21/18 at 10:15; Stop 06/21/18 at 10 :16; Status DC Iohexol (Omnipaque 240 Mg/ml) 50 ml 1X ONCE IV Last administered on at 10:17; Start 06/21/18 at 10:15; Stop 06/21/18 at 10:16; Status DC Miconazole Nitrate (Monistat-Derm) 1 cali BID TP Last administered on 06/28/18at 09:18; Start 06/21/18 at 14:00 Albuterol/ Ipratropium (Duoneb) 3 ml RTQID PRN NEB SHORTNESS OF BREATH Last administered on 06/22/18at 07:52; Start 06/21/18 at 17:30 Influenza Virus Vaccine (Afluria Trivalent [id number] Syringe) 0.5 ml ONCE ONCE VAX IM Last administered on 06/21/18at 21:23; Start 06/21/18 at 21:00; Stop 06/21/18 at 21:01; Status DC Amino Acids/ Glycerin/ Electrolytes 1,000 ml @ 80 mls/hr [id number] IV Last administered on 06/24/18at 04:29; Start 06/22/18 at 13:15; Stop 06/24/18 at 13 :34; Status DC Hydroxyzine HCl (Atarax) 10 mg PRN QHS PRN PO ANXIETY/AGITATION 1st Choice; Start 06/23/18 at 17:00 Morphine Sulfate (Morphine Sulfate) 1 mg PRN Q4HRS PRN IV MODERATE PAIN Last administered on 06/24/18at 16:38; Start 06/23/18 at 20:00 Lorazepam (Ativan) 1 mg PRN Q4HRS PRN IV ANXIETY / AGITATION Last administered on 06/25/18at 22:06; Start 06/23/18 at 20:00 Apixaban (Eliquis) 5 mg BID PO ; Start 06/24/18 at 13:45; Status Cancel Enoxaparin Sodium (Lovenox 60mg Syringe) 50 mg Q12HR SQ Last administered on at 09:18; Start 06/24/18 at 14:00 Amino Acids/ Glycerin/ Electrolytes 1,000 ml @ 75 mls/hr [id number] IV Last administered on 06/27/18at 23:17; Start 06/24/18 at 20:00 Active Scripts Active Antifungal Cream (Miconazole Nitrate) 14 Gm Cream..g. 1 Cali TP BID Reported Centrum Complete Multivit Tab (Multivitamin/Iron/Folic Acid) 1 Each Tablet 1 Each PO DAILY Hydroxyzine Hcl 10 Mg/5 Ml Syrup 10 Mg PO HS PRN Zoloft (Sertraline Hcl) 100 Mg Tablet 100 Mg PO HS Zoloft (Sertraline Hcl) 50 Mg Tablet 50 Mg PO HS Aricept (Donepezil Hcl) 23 Mg Tablet 23 Mg PO HS Hydroxyzine Hcl 10 Mg/5 Ml Syrup 10 Mg PO DAILY Vitals/I & O Vital Sign - Last 24 Hours 06/27/18 06/27/18 06/27/18 06/27/18 11:10 15:05 19:44 20:00 Temp 97.4 97.3 97.7 97.4 97.3 97.7 Pulse 59 66 67 Resp 16 18 18 B/P (MAP) 112/57 (75) 120/76 (91) 121/68 (85) Pulse Ox 97 97 97 O2 Delivery Room Air Room Air Nasal Cannula Room Air O2 Flow Rate 2.0 2.0 06/27/18 06/28/18 06/28/18 23:47 03:03 07:00 Temp 97.5 97.6 98.9 97.5 97.6 98.9 Pulse 58 67 68 Resp 18 16 16 B/P (MAP) 119/71 (87) 115/69 (84) 116/56 (76) Pulse Ox 97 97 96 O2 Delivery Room Air Nasal Cannula Nasal Cannula O2 Flow Rate 2.0 2.0 Intake and Output 06/27/18 06/27/18 06/28/18 15:00 23:00 07:00 Intake Total 0 ml Output Total 50 ml Balance -50 ml 0 ml Nutrition Consultation Dietary Evaluation: Recommendations by RD: PPN/TPN Comments: continue PPN until plan of care decided Expected Outcomes/Goals: Await outcome of family meeting Malnutrition Findings: Body Fat Depletion (Non Severe: Mild Depletion Weight Status: Underweight SWATI JOYNER MD Jun 28, 2018 10:49
[2018-06-28 11:00] VITALS: BP 92/52
--- NOTE | 2018-06-28 11:29 | PDOC ---
PULMONARY PROGRESS NOTES Subjective PT VERY WEAK/ LETHARGIC Vitals Vital Signs Date Time Temp Pulse Resp B/P (MAP) Pulse Ox O2 Delivery O2 Flow Rate FiO2 06/28/18 11:00 98.6 67 16 92/52 (65) 97 Nasal Cannula 2.0 98.6 ROS: No Nausea, No Chest Pain, No Abdominal Pain, No Increase Cough General: Lethargic Lungs: Clear Cardiovascular: S1, S2 Abdomen: Soft Extremities: No Edema Skin: Warm Labs Laboratory Tests Test 06/27/18 04:10 White Blood Count 6.4 x10^3/uL (4.0-11.0) Red Blood Count 3.52 x10^6/uL (3.50-5.40) Hemoglobin 10.8 g/dL (12.0-15.5) Hematocrit 31.0 % (36.0-47.0) Mean Corpuscular Volume 88 fL (79-100) Mean Corpuscular Hemoglobin 31 pg (25-35) Mean Corpuscular Hemoglobin Concent 35 g/dL (31-37) Red Cell Distribution Width 13.4 % (11.5-14.5) Platelet Count 221 x10^3/uL (140-400) Neutrophils (%) (Auto) 74 % (31-73) Lymphocytes (%) (Auto) 13 % (24-48) Monocytes (%) (Auto) 8 % (0-9) Eosinophils (%) (Auto) 4 % (0-3) Basophils (%) (Auto) 1 % (0-3) Neutrophils # (Auto) 4.8 x10^3uL (1.8-7.7) Lymphocytes # (Auto) 0.8 x10^3/uL (1.0-4.8) Monocytes # (Auto) 0.5 x10^3/uL (0.0-1.1) Eosinophils # (Auto) 0.3 x10^3/uL (0.0-0.7) Basophils # (Auto) 0.1 x10^3/uL (0.0-0.2) Sodium Level 141 mmol/L (136-145) Potassium Level 3.8 mmol/L (3.5-5.1) Chloride Level 104 mmol/L (98-107) Carbon Dioxide Level 27 mmol/L (21-32) Anion Gap 10 (6-14) Blood Urea Nitrogen 14 mg/dL (7-20) Creatinine 0.6 mg/dL (0.6-1.0) Estimated GFR (Cockcroft-Gault) 97.7 BUN/Creatinine Ratio 23 (6-20) Glucose Level 101 mg/dL (70-99) Calcium Level 9.1 mg/dL (8.5-10.1) Total Bilirubin 0.3 mg/dL (0.2-1.0) Aspartate Amino Transf (AST/SGOT) 37 U/L (15-37) Alanine Aminotransferase (ALT/SGPT) 26 U/L (14-59) Alkaline Phosphatase 74 U/L (46-116) Total Protein 6.3 g/dL (6.4-8.2) Albumin 2.4 g/dL (3.4-5.0) Albumin/Globulin Ratio 0.6 (1.0-1.7) Medications Active Scripts Medications Dose Route/Sig Max Daily Dose Days Date Category Centrum Complete Multivit Tab (Multivitamin/Iron/Folic Acid) 1 Each Tablet 1 Each PO DAILY 06/20/18 Reported Hydroxyzine Hcl 10 Mg/5 Ml Syrup 10 Mg PO HS PRN 06/20/18 Reported Zoloft (Sertraline Hcl) 100 Mg Tablet 100 Mg PO HS 06/20/18 Reported Zoloft (Sertraline Hcl) 50 Mg Tablet 50 Mg PO HS 06/20/18 Reported Aricept (Donepezil Hcl) 23 Mg Tablet 23 Mg PO HS 06/20/18 Reported Hydroxyzine Hcl 10 Mg/5 Ml Syrup 10 Mg PO DAILY 06/19/18 Reported Impression . IMPRESSION: 1. Acute pulmonary embolism. 2. Acute respiratory distress secondary to above. resolved 3. Recent near syncopal episode secondary to acute pulmonary embolism. 4. Echocardiogram revealing no significant right heart strain, mild elevation in pulmonary artery pressure, suspected pulmonary embolism was not acute, but subacute, the patient remained hemodynamically stable throughout her stay. 5. The patient at risk for fall with subsequent complications of utilizing anticoagulation. 6. Non-ST segment elevation myocardial infarction, elevated troponin level. possible RV Infarct 7.dysphagia/ choking on food 06/21 Impression: 1. Infrarenal permanent IVC filter placement as described Plan . LOVENOX till discharge PPN Speech following RISK OF FALL IS HIGH/ NO FDC AC Very poor functional status d/w palliative care meeting REVIEWED very poor prognosis LILLIE HOUGH MD Jun 28, 2018 11:29
[2018-06-28] MEDS: AMINO AC 3%/ELECTROLYTE/GLYCER 1,000 ML IV SCH ×2 (11:34→23:41)
--- NOTE | 2018-06-28 12:43 | PDOC2 ---
PALLIATIVE CARE Palliative Care Note Palliative Care Patient denies pain, hunger, or SOB Spoke with . States he wants his daughter Morena to make decisions. Morena here, Provided AD and POA documents. Reviewed with Morena. Copy placed or record Morena would like to focus on her comfort. Home with Hospice Agency. Will have SW assist with selection. Outside the Hospital DNR/DNI to completed. Morena would like to follow her mother's wishes for DNR/DNI. Discussed pleasure feedings. Morena understands the risk of po intake of aspiration pneumonia and . Morena will work with SW to select Hospice Agency. Did discuss option of Home with Hospice vs correction with hospice vs IP Hospice Facility. Plan: Home tomorrow with Hospice. DNR/DNI per request of Morena and AD Spoke with MATTEO and Shirley KNOX who will assist with discharge plan,. ALICIA BURTON Jun 28, 2018 12:43
[2018-06-28 15:00] VITALS: BP 104/59
[2018-06-28 19:36] VITALS: BP 110/67
[2018-06-28] MEDS: ATORVASTATIN CALCIUM 20 MG TABLET PO SCH (21:28)
[2018-06-28] MEDS: SERTRALINE 50 MG TABLET. PO SCH (21:28)
[2018-06-28] MEDS: LORazepam 0.5 MG TABLET PO PRN (22:04)
[2018-06-28 23:50] VITALS: BP 120/69
[2018-06-29 03:25] VITALS: BP 149/81
[2018-06-29 07:00] VITALS: BP 118/62
--- NOTE | 2018-06-29 07:49 | PDOC ---
PULMONARY PROGRESS NOTES Subjective PT VERY WEAK/ LETHARGIC Vitals Vital Signs Date Time Temp Pulse Resp B/P (MAP) Pulse Ox O2 Delivery O2 Flow Rate FiO2 06/29/18 03:25 97.5 61 18 149/81 (103) 99 Room Air 97.5 06/28/18 23:50 2.0 ROS: No Nausea, No Chest Pain, No Abdominal Pain, No Increase Cough General: Lethargic Lungs: Clear Cardiovascular: S1, S2 Abdomen: Soft Extremities: No Edema Skin: Warm Medications Active Scripts Medications Dose Route/Sig Max Daily Dose Days Date Category Centrum Complete Multivit Tab (Multivitamin/Iron/Folic Acid) 1 Each Tablet 1 Each PO DAILY 06/20/18 Reported Hydroxyzine Hcl 10 Mg/5 Ml Syrup 10 Mg PO HS PRN 06/20/18 Reported Zoloft (Sertraline Hcl) 100 Mg Tablet 100 Mg PO HS 06/20/18 Reported Zoloft (Sertraline Hcl) 50 Mg Tablet 50 Mg PO HS 06/20/18 Reported Aricept (Donepezil Hcl) 23 Mg Tablet 23 Mg PO HS 06/20/18 Reported Hydroxyzine Hcl 10 Mg/5 Ml Syrup 10 Mg PO DAILY 06/19/18 Reported Impression . IMPRESSION: 1. Acute pulmonary embolism. 2. Acute respiratory distress secondary to above. resolved 3. Recent near syncopal episode secondary to acute pulmonary embolism. 4. Echocardiogram revealing no significant right heart strain, mild elevation in pulmonary artery pressure, suspected pulmonary embolism was not acute, but subacute, the patient remained hemodynamically stable throughout her stay. 5. The patient at risk for fall with subsequent complications of utilizing anticoagulation. 6. Non-ST segment elevation myocardial infarction, elevated troponin level. possible RV Infarct 7.dysphagia/ choking on food 8. Dysphagia 06/21 Impression: 1. Infrarenal permanent IVC filter placement as described Plan . 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
--- NOTE | 2018-06-29 08:52 | PDOC ---
PROGRESS NOTES Chief Complaint Chief Complaint impression acute hypoxoic respiratory failure, large pulmonary embolism , Saddle PE S/p IVC filter placement 06/21/18 BIlateral leg DVT - new H/o Fall , no injuries Hypoxic respiratory failure secondary to above above Elevated Troponin in the background of saddle PE dementia, chronic encephalopathy DYysphagia - NPO VERY WEAK, palliative care FOCUS BY FAMILY AVOID long term care pharmacist ANTICOAGULANTS, may continue lovenox at hospice discretion Did discuss option of Home with Hospice History of Present Illness History of Present Illness t/o out of ICU 06/21/18 BReathing , less tachypnea, less tachycardic Family very involved in care-very pleasant and realistic Did discuss feeding options, NG tube was not an option currently Failed swallow, ProcalAmine Gets tired easy which is affecting swallowing (saddle PE and all) Echo - PA pressures 24 - copy given to dtr Plan: 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 Vitals Vitals Vital Signs Date Time Temp Pulse Resp B/P (MAP) Pulse Ox O2 Delivery O2 Flow Rate FiO2 06/29/18 07:00 97.9 58 18 118/62 (80) 97 Nasal Cannula 2.0 97.9 Physical Exam General: Alert, Oriented X3, Cooperative, No acute distress, mild distress, moderate distress, Other (tachypneic LESS) Heart: Regular rate (SR without ectopies), Normal S1, Other (2/6 systolic murmur to LLS border, tachy ) Lungs: Clear Abdomen: Normal bowel sounds, Soft, No tenderness, No masses Extremities: No clubbing, No cyanosis, No edema, No tenderness/swelling Skin: No rashes, No breakdown, No significant lesion Comment Review of Relevant I have reviewed the following items gal (where applicable) has been applied. Labs Microbiology 06/20/18 Blood Culture - Final, Complete NO GROWTH AFTER 5 DAYS Medications Current Medications Ondansetron HCl (Zofran) 4 mg PRN Q6HRS PRN IV NAUSEA/VOMITING; Start at 18:15; Stop 06/19/18 at 19:01; Status DC Sodium Chloride (Normal Saline Flush) 3 ml QSHIFT PRN IV AFTER MEDS AND BLOOD DRAWS; Start 06/19/18 at 18:15 Albuterol/ Ipratropium (Duoneb) 3 ml RTQID NEB Last administered on 06/21/18at 16:38; Start 06/19/18 at 20:00; Stop 06/21/18 at 17:28; Status DC Guaifenesin (Robitussin Dm) 10 ml PRN Q6HRS PRN PO COUGH; Start 06/19/18 at 18 :30 Donepezil HCl (Aricept) 5 mg QHS PO Last administered on 06/20/18at 20:36; Start 06/19/18 at 21:00; Stop 06/21/18 at 08:10; Status DC Sertraline HCl (Zoloft) 25 mg QHS PO Last administered on 06/19/18at 20:35; Start 06/19/18 at 21:00; Stop 06/20/18 at 11:33; Status DC Alprazolam (Xanax) 0.25 mg PRN Q8HRS PRN PO ANXIETY/AGITATION 2ND CHOICE Last administered on 06/22/18at 15:52; Start 06/19/18 at 18:30; Stop 06/25/18 at 20 :05; Status DC Alprazolam (Xanax) 0.25 mg 1X ONCE PO Last administered on 06/19/18at 20:27; Start 06/19/18 at 18:30; Stop 06/19/18 at 18:34; Status DC Hydroxyzine HCl (Atarax) 10 mg PRN Q6HRS PRN PO ITCHING; Start 06/19/18 at 18: 30 Multivitamins (Thera M Plus) 1 tab DAILY PO Last administered on 06/28/18at 09: 18; Start 06/20/18 at 09:00 Heparin Sodium (Porcine) (Heparin Sodium) 4,160 unit 1X ONCE IV Last administered on 06/19/18at 20:27; Start 06/19/18 at 18:30; Stop 06/19/18 at 18 :34; Status DC Heparin Sodium/ Dextrose 500 ml @ 16.64 mls/ hr CONT PRN IV SEE I/O RECORD Last administered on 06/23/18at 20:32; Start 06/19/18 at 18:30; Stop 06/24/18 at 13:41; Status DC Heparin Sodium (Porcine) (Heparin Sodium) 1,560 unit PRN Q6HRS PRN IV FOR UFH LEVEL LESS THAN 0.2 Last administered on 06/21/18at 22:24; Start 06/19/18 at 18 :30; Stop 06/24/18 at 13:42; Status DC Heparin Sodium (Porcine) (Heparin Sodium) 780 unit PRN Q6HRS PRN IV FOR UFH LEVEL 0.2 - 0.29 Last administered on 06/24/18at 06:29; Start 06/19/18 at 18:30 ; Stop 06/24/18 at 13:41; Status DC Acetaminophen/ Hydrocodone Bitart (Lortab 5/325) 1 tab PRN Q4HRS PRN PO MODERATE-SEVERE PAIN Last administered on 06/24/18at 15:22; Start 06/19/18 at 18:30 Acetaminophen (Tylenol) 500 mg PRN Q6HRS PRN PO MILD PAIN / TEMP; Start at 18:30 Ondansetron HCl (Zofran) 4 mg PRN Q6HRS PRN IV NAUSEA/VOMITING Last administered on 06/26/18at 22:02; Start 06/19/18 at 18:30 Ondansetron HCl (Zofran Odt) 4 mg PRN Q6HRS PRN PO NAUSEA/VOMITING Last administered on 06/23/18at 10:56; Start 06/19/18 at 18:30 Heparin Sodium (Porcine) (Heparin Sodium) 4,150 unit 1X ONCE IV ; Start at 18:30; Stop 06/19/18 at 18:31; Status UNV Heparin Sodium/ Dextrose 500 ml @ 0 mls/hr CONT PRN IV SEE I/O RECORD; Start 06/19/18 at 18:30; Status UNV Heparin Sodium (Porcine) (Heparin Sodium) 1,550 unit PRN Q6HRS PRN IV FOR UFH LEVEL LESS THAN 0.2; Start 06/19/18 at 18:30; Status UNV Heparin Sodium (Porcine) (Heparin Sodium) 800 unit PRN Q6HRS PRN IV FOR UFH LEVEL 0.2 - 0.29; Start 06/19/18 at 18:30; Status UNV Lorazepam (Ativan) 0.5 mg PRN Q8HRS PRN PO ANXIETY/AGITATION 2nd CHOICE Last administered on 06/28/18at 22:04; Start 06/19/18 at 19:00 Sodium Chloride 1,000 ml @ 80 mls/hr [id number] IV Last administered on at 09:56; Start 06/19/18 at 20:45; Stop 06/22/18 at 13:05; Status DC Influenza Virus Vaccine (Afluria Trivalent [id number] Syringe) 0.5 ml ONCE ONCE VAX IM ; Start 06/20/18 at 09:00; Stop 06/20/18 at 09:01; Status DC Info (Anti-Coagulation Monitoring By Pharmacy) 1 each PRN DAILY PRN MC SEE COMMENTS Last administered on 06/27/18at 13:59; Start 06/20/18 at 09:00 Aspirin (Ecotrin) 81 mg [id number] PO Last administered on 06/28/18at 09:18; Start 06/20/18 at 12:00 Sertraline HCl (Zoloft) 150 mg HS PO Last administered on 06/28/18at 21:28; Start 06/20/18 at 21:00 Donepezil HCl (Aricept) 10 mg BID PO Last administered on 06/28/18at 21:28; Start 06/20/18 at 12:00 Hydroxyzine HCl (Atarax) 10 mg DAILY PO Last administered on 06/28/18at 09:17; Start 06/20/18 at 12:00 Hydroxyzine HCl (Atarax) 10 mg QHS PRN PO ANXIETY/AGITATION; Start 06/20/18 at 11:45; Stop 06/23/18 at 16:53; Status DC Non-Formulary Medication (Multivitamin/ Iron/Folic Acid (Centrum Complete Multivit Tab)) 1 each DAILY PO ; Start 06/21/18 at 09:00; Status UNV Non-Formulary Medication (Sertraline Hcl (Zoloft)) 100 mg HS PO ; Start at 21:00; Status UNV Atorvastatin Calcium (Lipitor) 20 mg QHS PO Last administered on 06/28/18at 21: 28; Start 06/20/18 at 21:00 Sodium Chloride 500 ml @ 500 mls/hr 1X ONCE IV Last administered on at 00:37; Start 06/21/18 at 01:00; Stop 06/21/18 at 01:59; Status DC Lidocaine/Sodium Bicarbonate (Buffered Lidocaine 1%) 3 ml STK-MED ONCE .ROUTE ; Start 06/21/18 at 09:32; Stop 06/21/18 at 09:33; Status DC Iohexol (Omnipaque 240 Mg/ml) 50 ml STK-MED ONCE .ROUTE ; Start 06/21/18 at 09: 32; Stop 06/21/18 at 09:33; Status DC Lidocaine/Sodium Bicarbonate (Buffered Lidocaine 1%) 3 ml 1X ONCE IJ Last administered on 06/21/18at 10:16; Start 06/21/18 at 10:15; Stop 06/21/18 at 10 :16; Status DC Iohexol (Omnipaque 240 Mg/ml) 50 ml 1X ONCE IV Last administered on at 10:17; Start 06/21/18 at 10:15; Stop 06/21/18 at 10:16; Status DC Miconazole Nitrate (Monistat-Derm) 1 cali BID TP Last administered on 06/28/18at 21:30; Start 06/21/18 at 14:00 Albuterol/ Ipratropium (Duoneb) 3 ml RTQID PRN NEB SHORTNESS OF BREATH Last administered on 06/22/18at 07:52; Start 06/21/18 at 17:30 Influenza Virus Vaccine (Afluria Trivalent [id number] Syringe) 0.5 ml ONCE ONCE VAX IM Last administered on 06/21/18at 21:23; Start 06/21/18 at 21:00; Stop 06/21/18 at 21:01; Status DC Amino Acids/ Glycerin/ Electrolytes 1,000 ml @ 80 mls/hr [id number] IV Last administered on 06/24/18at 04:29; Start 06/22/18 at 13:15; Stop 06/24/18 at 13 :34; Status DC Hydroxyzine HCl (Atarax) 10 mg PRN QHS PRN PO ANXIETY/AGITATION 1st Choice; Start 06/23/18 at 17:00 Morphine Sulfate (Morphine Sulfate) 1 mg PRN Q4HRS PRN IV MODERATE PAIN Last administered on 06/24/18at 16:38; Start 06/23/18 at 20:00 Lorazepam (Ativan) 1 mg PRN Q4HRS PRN IV ANXIETY / AGITATION Last administered on 06/25/18at 22:06; Start 06/23/18 at 20:00 Apixaban (Eliquis) 5 mg BID PO ; Start 06/24/18 at 13:45; Status Cancel Enoxaparin Sodium (Lovenox 60mg Syringe) 50 mg Q12HR SQ Last administered on at 21:29; Start 06/24/18 at 14:00 Amino Acids/ Glycerin/ Electrolytes 1,000 ml @ 75 mls/hr [id number] IV Last administered on 06/28/18at 23:41; Start 06/24/18 at 20:00 Active Scripts Active Antifungal Cream (Miconazole Nitrate) 14 Gm Cream..g. 1 Cali TP BID Reported Centrum Complete Multivit Tab (Multivitamin/Iron/Folic Acid) 1 Each Tablet 1 Each PO DAILY Hydroxyzine Hcl 10 Mg/5 Ml Syrup 10 Mg PO HS PRN Zoloft (Sertraline Hcl) 100 Mg Tablet 100 Mg PO HS Zoloft (Sertraline Hcl) 50 Mg Tablet 50 Mg PO HS Aricept (Donepezil Hcl) 23 Mg Tablet 23 Mg PO HS Hydroxyzine Hcl 10 Mg/5 Ml Syrup 10 Mg PO DAILY Vitals/I & O Vital Sign - Last 24 Hours 06/28/18 06/28/18 06/28/18 06/28/18 11:00 15:00 19:36 20:30 Temp 98.6 98.3 97.7 98.6 98.3 97.7 Pulse 67 62 72 Resp 16 16 18 B/P (MAP) 92/52 (65) 104/59 (74) 110/67 (81) Pulse Ox 97 96 99 O2 Delivery Nasal Cannula Nasal Cannula Nasal Cannula Room Air O2 Flow Rate 2.0 2.0 2.0 06/28/18 06/29/18 06/29/18 23:50 03:25 07:00 Temp 97.6 97.5 97.9 97.6 97.5 97.9 Pulse 65 61 58 Resp 18 18 18 B/P (MAP) 120/69 (86) 149/81 (103) 118/62 (80) Pulse Ox 98 99 97 O2 Delivery Nasal Cannula Room Air Nasal Cannula O2 Flow Rate 2.0 2.0 Intake and Output 06/28/18 06/28/18 06/29/18 15:00 23:00 07:00 Intake Total 900 ml Balance 900 ml Nutrition Consultation Dietary Evaluation: Recommendations by RD: PPN/TPN Comments: continue PPN until plan of care decided Expected Outcomes/Goals: Await outcome of family meeting Malnutrition Findings: Body Fat Depletion (Non Severe: Mild Depletion Weight Status: Underweight SWATI JOYNER MD Jun 29, 2018 08:52
[2018-06-29] MEDS: MULTIVITAMIN with MINERAL TABLET. PO SCH (09:52)
[2018-06-29] MEDS: ASPIRIN ENTERIC COATED 81 MG TABLET.DR. PO SCH (09:52)
[2018-06-29] MEDS: DONEPEZIL HCL 10 MG TABLET. PO SCH (09:52)
[2018-06-29] MEDS: ONDANSETRON PF 4 MG/2 ML VIAL. IV PRN (09:53)
[2018-06-29] MEDS: hydrOXYzine 10 MG TABLET PO SCH (09:55)
[2018-06-29] MEDS: MICONAZOLE NITRATE 2% TOPICAL CREAM 28GM TUBE. TP SCH (09:58)
--- NOTE | 2018-06-29 10:58 | PDOC3 ---
Discharge Summary Date of Admission: Jun 19, 2018 Date of Discharge: Jun 29, 2018 Follow-Up: 1-2 days Admitting Diagnosis comment: discharge diagnosis Chief Complaint impression acute hypoxoic respiratory failure, large pulmonary embolism , Saddle PE S/p IVC filter placement 06/21/18 BIlateral leg DVT - new H/o Fall , no injuries Hypoxic respiratory failure secondary to above above Elevated Troponin in the background of saddle PE dementia, chronic encephalopathy DYysphagia - NPO WEAK,comfortable palliative care FOCUS BY FAMILY, all agree now AVOID detention ANTICOAGULANTS, may continue lovenox at hospice discretion Home with Hospice History of Present Illness History of Present Illness t/o out of ICU 06/21/18 BReathing , less tachypnea, less tachycardic Family very involved in care-very pleasant and realistic agrees with hospice admit Did discuss feeding options, NG tube was not an option Failed swallow, on ProcalAmine Echo - PA pressures 24 - copy given to dtr Plan: 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 Vitals Vitals Vital Signs Date Time Temp Pulse Resp B/P (MAP) Pulse Ox O2 Delivery O2 Flow Rate FiO2 06/29/18 07:00 97.9 58 18 118/62 (80) 97 Nasal Cannula 2.0 97.9 Physical Exam General: Cooperative, No acute distress, Heart: Regular rate (SR without ectopies), Normal S1, Other (2/6 systolic murmur to LLS border, ) Lungs: Clear Abdomen: Normal bowel sounds, Soft, No tenderness, No masses Extremities: No clubbing, No cyanosis, No edema, No tenderness/swelling Skin: No rashes, No breakdown, No significant lesion Comment weak Brief Hospital Course Ms. Curtis is a 72 old [sex] who presented with [ ] CONDITION AT DISCHARGE: Comment (begin home hospice) Discharge Medications Current Medications Ondansetron HCl (Zofran) 4 mg PRN Q6HRS PRN IV NAUSEA/VOMITING; Start at 18:15; Stop 06/19/18 at 19:01; Status DC Sodium Chloride (Normal Saline Flush) 3 ml QSHIFT PRN IV AFTER MEDS AND BLOOD DRAWS; Start 06/19/18 at 18:15 Albuterol/ Ipratropium (Duoneb) 3 ml RTQID NEB Last administered on 06/21/18at 16:38; Start 06/19/18 at 20:00; Stop 06/21/18 at 17:28; Status DC Guaifenesin (Robitussin Dm) 10 ml PRN Q6HRS PRN PO COUGH; Start 06/19/18 at 18 :30 Donepezil HCl (Aricept) 5 mg QHS PO Last administered on 06/20/18at 20:36; Start 06/19/18 at 21:00; Stop 06/21/18 at 08:10; Status DC Sertraline HCl (Zoloft) 25 mg QHS PO Last administered on 06/19/18at 20:35; Start 06/19/18 at 21:00; Stop 06/20/18 at 11:33; Status DC Alprazolam (Xanax) 0.25 mg PRN Q8HRS PRN PO ANXIETY/AGITATION 2ND CHOICE Last administered on 06/22/18at 15:52; Start 06/19/18 at 18:30; Stop 06/25/18 at 20 :05; Status DC Alprazolam (Xanax) 0.25 mg 1X ONCE PO Last administered on 06/19/18at 20:27; Start 06/19/18 at 18:30; Stop 06/19/18 at 18:34; Status DC Hydroxyzine HCl (Atarax) 10 mg PRN Q6HRS PRN PO ITCHING; Start 06/19/18 at 18: 30 Multivitamins (Thera M Plus) 1 tab DAILY PO Last administered on 06/29/18at 09: 52; Start 06/20/18 at 09:00 Heparin Sodium (Porcine) (Heparin Sodium) 4,160 unit 1X ONCE IV Last administered on 06/19/18at 20:27; Start 06/19/18 at 18:30; Stop 06/19/18 at 18 :34; Status DC Heparin Sodium/ Dextrose 500 ml @ 16.64 mls/ hr CONT PRN IV SEE I/O RECORD Last administered on 06/23/18at 20:32; Start 06/19/18 at 18:30; Stop 06/24/18 at 13:41; Status DC Heparin Sodium (Porcine) (Heparin Sodium) 1,560 unit PRN Q6HRS PRN IV FOR UFH LEVEL LESS THAN 0.2 Last administered on 06/21/18at 22:24; Start 06/19/18 at 18 :30; Stop 06/24/18 at 13:42; Status DC Heparin Sodium (Porcine) (Heparin Sodium) 780 unit PRN Q6HRS PRN IV FOR UFH LEVEL 0.2 - 0.29 Last administered on 06/24/18at 06:29; Start 06/19/18 at 18:30 ; Stop 06/24/18 at 13:41; Status DC Acetaminophen/ Hydrocodone Bitart (Lortab 5/325) 1 tab PRN Q4HRS PRN PO MODERATE-SEVERE PAIN Last administered on 06/24/18at 15:22; Start 06/19/18 at 18:30 Acetaminophen (Tylenol) 500 mg PRN Q6HRS PRN PO MILD PAIN / TEMP; Start at 18:30 Ondansetron HCl (Zofran) 4 mg PRN Q6HRS PRN IV NAUSEA/VOMITING Last administered on 06/29/18at 09:53; Start 06/19/18 at 18:30 Ondansetron HCl (Zofran Odt) 4 mg PRN Q6HRS PRN PO NAUSEA/VOMITING Last administered on 06/23/18at 10:56; Start 06/19/18 at 18:30 Heparin Sodium (Porcine) (Heparin Sodium) 4,150 unit 1X ONCE IV ; Start at 18:30; Stop 06/19/18 at 18:31; Status UNV Heparin Sodium/ Dextrose 500 ml @ 0 mls/hr CONT PRN IV SEE I/O RECORD; Start 06/19/18 at 18:30; Status UNV Heparin Sodium (Porcine) (Heparin Sodium) 1,550 unit PRN Q6HRS PRN IV FOR UFH LEVEL LESS THAN 0.2; Start 06/19/18 at 18:30; Status UNV Heparin Sodium (Porcine) (Heparin Sodium) 800 unit PRN Q6HRS PRN IV FOR UFH LEVEL 0.2 - 0.29; Start 06/19/18 at 18:30; Status UNV Lorazepam (Ativan) 0.5 mg PRN Q8HRS PRN PO ANXIETY/AGITATION 2nd CHOICE Last administered on 06/28/18at 22:04; Start 06/19/18 at 19:00 Sodium Chloride 1,000 ml @ 80 mls/hr [id number] IV Last administered on at 09:56; Start 06/19/18 at 20:45; Stop 06/22/18 at 13:05; Status DC Influenza Virus Vaccine (Afluria Trivalent [id number] Syringe) 0.5 ml ONCE ONCE VAX IM ; Start 06/20/18 at 09:00; Stop 06/20/18 at 09:01; Status DC Info (Anti-Coagulation Monitoring By Pharmacy) 1 each PRN DAILY PRN MC SEE COMMENTS Last administered on 06/27/18at 13:59; Start 06/20/18 at 09:00 Aspirin (Ecotrin) 81 mg [id number] PO Last administered on 06/29/18at 09:52; Start 06/20/18 at 12:00 Sertraline HCl (Zoloft) 150 mg HS PO Last administered on 06/28/18at 21:28; Start 06/20/18 at 21:00 Donepezil HCl (Aricept) 10 mg BID PO Last administered on 06/29/18at 09:52; Start 06/20/18 at 12:00 Hydroxyzine HCl (Atarax) 10 mg DAILY PO Last administered on 06/29/18at 09:55; Start 06/20/18 at 12:00 Hydroxyzine HCl (Atarax) 10 mg QHS PRN PO ANXIETY/AGITATION; Start 06/20/18 at 11:45; Stop 06/23/18 at 16:53; Status DC Non-Formulary Medication (Multivitamin/ Iron/Folic Acid (Centrum Complete Multivit Tab)) 1 each DAILY PO ; Start 06/21/18 at 09:00; Status UNV Non-Formulary Medication (Sertraline Hcl (Zoloft)) 100 mg HS PO ; Start at 21:00; Status UNV Atorvastatin Calcium (Lipitor) 20 mg QHS PO Last administered on 06/28/18at 21: 28; Start 06/20/18 at 21:00 Sodium Chloride 500 ml @ 500 mls/hr 1X ONCE IV Last administered on at 00:37; Start 06/21/18 at 01:00; Stop 06/21/18 at 01:59; Status DC Lidocaine/Sodium Bicarbonate (Buffered Lidocaine 1%) 3 ml STK-MED ONCE .ROUTE ; Start 06/21/18 at 09:32; Stop 06/21/18 at 09:33; Status DC Iohexol (Omnipaque 240 Mg/ml) 50 ml STK-MED ONCE .ROUTE ; Start 06/21/18 at 09: 32; Stop 06/21/18 at 09:33; Status DC Lidocaine/Sodium Bicarbonate (Buffered Lidocaine 1%) 3 ml 1X ONCE IJ Last administered on 06/21/18at 10:16; Start 06/21/18 at 10:15; Stop 06/21/18 at 10 :16; Status DC Iohexol (Omnipaque 240 Mg/ml) 50 ml 1X ONCE IV Last administered on at 10:17; Start 06/21/18 at 10:15; Stop 06/21/18 at 10:16; Status DC Miconazole Nitrate (Monistat-Derm) 1 cali BID TP Last administered on 06/29/18at 09:58; Start 06/21/18 at 14:00 Albuterol/ Ipratropium (Duoneb) 3 ml RTQID PRN NEB SHORTNESS OF BREATH Last administered on 06/22/18at 07:52; Start 06/21/18 at 17:30 Influenza Virus Vaccine (Afluria Trivalent [id number] Syringe) 0.5 ml ONCE ONCE VAX IM Last administered on 06/21/18at 21:23; Start 06/21/18 at 21:00; Stop 06/21/18 at 21:01; Status DC Amino Acids/ Glycerin/ Electrolytes 1,000 ml @ 80 mls/hr [id number] IV Last administered on 06/24/18at 04:29; Start 06/22/18 at 13:15; Stop 06/24/18 at 13 :34; Status DC Hydroxyzine HCl (Atarax) 10 mg PRN QHS PRN PO ANXIETY/AGITATION 1st Choice; Start 06/23/18 at 17:00 Morphine Sulfate (Morphine Sulfate) 1 mg PRN Q4HRS PRN IV MODERATE PAIN Last administered on 06/24/18at 16:38; Start 10/28/18 at 20:00 Lorazepam (Ativan) 1 mg PRN Q4HRS PRN IV ANXIETY / AGITATION Last administered on 06/25/18at 22:06; Start 06/23/18 at 20:00 Apixaban (Eliquis) 5 mg BID PO ; Start 06/24/18 at 13:45; Status Cancel Enoxaparin Sodium (Lovenox 60mg Syringe) 50 mg Q12HR SQ Last administered on at 21:29; Start 06/24/18 at 14:00 Amino Acids/ Glycerin/ Electrolytes 1,000 ml @ 75 mls/hr [id number] IV Last administered on 06/28/18at 23:41; Start 06/24/18 at 20:00 Active Scripts Active Antifungal Cream (Miconazole Nitrate) 14 Gm Cream..g. 1 Cali TP BID Reported Centrum Complete Multivit Tab (Multivitamin/Iron/Folic Acid) 1 Each Tablet 1 Each PO DAILY Hydroxyzine Hcl 10 Mg/5 Ml Syrup 10 Mg PO HS PRN Zoloft (Sertraline Hcl) 100 Mg Tablet 100 Mg PO HS Zoloft (Sertraline Hcl) 50 Mg Tablet 50 Mg PO HS Aricept (Donepezil Hcl) 23 Mg Tablet 23 Mg PO HS Hydroxyzine Hcl 10 Mg/5 Ml Syrup 10 Mg PO DAILY Vital Signs Vital Signs Date Time Temp Pulse Resp B/P (MAP) Pulse Ox O2 Delivery O2 Flow Rate FiO2 06/29/18 07:00 97.9 58 18 118/62 (80) 97 Nasal Cannula 2.0 97.9 Allergies Allergies Coded Allergies Type Severity Reaction Last Updated Verified No Known Drug Allergies 02/06/17 No Disposition/Orders: D/C to Home w/ HH Patient Instructions d/c [id number] min SWATI JOYNER MD Jun 29, 2018 10:58
[2018-06-29 11:00] VITALS: BP 113/64
[2018-06-29] MEDS ORDERED: ENOX60DI3 SQ (11:03)
[2018-06-29] MEDS ORDERED: ONDA4TAB12 PO (11:03)
--- NOTE | 2018-06-29 12:36 | DISCH ---
DISCHARGE DISCHARGE INFORMATION: DISCHARGE DATE: Jun 24, 2018 CONDITION ON DISCHARGE: Guarded CODE STATUS: Code Status: DNR/DNI HOSPICE: HOSPICE: Yes HOSPICE EVAL & TREAT: Yes LTAC: ADMIT TO LTAC: No POST DISCHARGE ORDERS: ACTIVITY ORDERS: Avoid exertion WEIGHT BEARING STATUS: As tolerated DIET AFTER DISCHARGE: NPO WOUND/INCISION CARE: Ice to area for comfort CHECKS AFTER DISCHARGE: CHECKS AFTER DISCHARGE: Check blood press - daily FOLLOW-UP: PHYSICIAN FOLLOW-UP: < 2 weeks TREATMENT/EQUIPMENT ORDERS: ADAPTIVE EQUIPMENT NEEDED: Front wheeled walker Physical Therapy For: Safety Occupational Therapy For: Evaluation/Treatment Speech Language Pathology For: Swallow Cognition DISCHARGE MEDICATIONS: Home Meds Active Scripts Ondansetron (ONDANSETRON ODT) 4 Mg Tab.rapdis, 4 MG PO PRN Q6HRS PRN for NAUSEA/ VOMITING for 10 Days, #30 TAB Prov:SWATI JOYNER MD 06/29/18 Enoxaparin Sodium (ENOXAPARIN SODIUM) 60 Mg/0.6 Ml Disp.syrin, 50 MG SQ Q12HR for pulm embolus for 10 Days, #20 DIS.SYR Prov:SWATI JOYNER MD 06/29/18 Miconazole Nitrate (ANTIFUNGAL CREAM) 14 Gm Cream..g., 1 JOSE CRUZ TP BID, #20 EACH Prov:RAFAELA ANDERSON MD 06/24/18 Reported Medications Multivitamin/Iron/Folic Acid (CENTRUM COMPLETE MULTIVIT TAB) 1 Each Tablet, 1 EACH PO DAILY, TAB 06/20/18 Hydroxyzine Hcl (HYDROXYZINE HCL) 10 Mg/5 Ml Syrup, 10 MG PO HS PRN for ANXIETY / AGITATION, MISC 06/20/18 Sertraline Hcl (ZOLOFT) 100 Mg Tablet, 100 MG PO HS for ANTI-DEPRESSANT, TAB 0 Refills 06/20/18 Sertraline Hcl (ZOLOFT) 50 Mg Tablet, 50 MG PO HS for ANTI-DEPRESSANT, TAB 0 Refills 06/20/18 Donepezil Hcl (ARICEPT) 23 Mg Tablet, 23 MG PO HS, TAB 06/20/18 Hydroxyzine Hcl (HYDROXYZINE HCL) 10 Mg/5 Ml Syrup, 10 MG PO DAILY, MISC 06/19/18 SWATI JOYNER MD Jun 29, 2018 12:35
== END 2018-06-29 13:48 | disposition hospice, home (50) | DRG 166 ==
LOC: 1 WEST ICU 17:29 → 6 SOUTH 06-21 19:35
PROVIDERS: ADMIT Internal Medicine; ATTEND Internal Medicine
PROC: 06H03DZ Insertion of Intraluminal Device into Inferior Vena Cava, Percutaneous Approach (ICD-10-PCS; principal; 2018-06-21)
DX: I26.92 Saddle embolus of pulmonary artery without acute cor pulmonale (principal); I21.4 Non-ST elevation (NSTEMI) myocardial infarction; J96.01 Acute respiratory failure with hypoxia; E87.4 Mixed disorder of acid-base balance; G93.40 Encephalopathy, unspecified; I82.403 Acute embolism and thrombosis of unspecified deep veins of lower extremity, bilateral; R65.10 Systemic inflammatory response syndrome (SIRS) of non-infectious origin without acute organ dysfunction; D72.829 Elevated white blood cell count, unspecified; E78.5 Hyperlipidemia, unspecified; F03.90 Unspecified dementia, unspecified severity, without behavioral disturbance, psychotic disturbance, mood disturbance, and anxiety; F32.9 Major depressive disorder, single episode, unspecified; I25.10 Atherosclerotic heart disease of native coronary artery without angina pectoris; F41.9 Anxiety disorder, unspecified; I07.1 Rheumatic tricuspid insufficiency; M19.90 Unspecified osteoarthritis, unspecified site; K21.9 Gastro-esophageal reflux disease without esophagitis; W18.39XA Other fall on same level, initial encounter; M81.0 Age-related osteoporosis without current pathological fracture; R13.12 Dysphagia, oropharyngeal phase; Z51.5 Encounter for palliative care; Z80.9 Family history of malignant neoplasm, unspecified; Z86.73 Personal history of transient ischemic attack (TIA), and cerebral infarction without residual deficits; Z91.81 History of falling; Z87.891 Personal history of nicotine dependence; Y93.89 Activity, other specified; Y92.89 Other specified places as the place of occurrence of the external cause; Y99.8 Other external cause status
CPT/HCPCS: 36415; 37191; 73600; 76937; 80048; 80053; 80061; 81001; 82274; 83605; 83735; 84484; 85007; 85025; 85300; 85302; 85306; 85520; 85610; 85730; 86147; 87040; 87641; 90471; 90756; 93005; 93306; 93970; 94640; 94760; C1769; C1892; J1644; J1650; J2060; J2270; J2405; J7030; J7040; J7620; Q0162; Q9966; 92526; 92610; 97110; 97530; 97535; Q2035